=== PATIENT | female | born 1945 | race Caucasian/White ===

== ENCOUNTER → 2020-06-15 14:22 | Outpatient (BNVA) | payer MEDICARE, OTHER, SELFPAY | PROVIDERS: Family Provider Family Medicine; Visit Provider Nurse Practitioner Family | DX: Z11.59 Encounter for screening for other viral diseases (principal); J32.9 Chronic sinusitis, unspecified; R05 Cough | CPT/HCPCS: 87635 ==

== ENCOUNTER 2020-06-16 13:22 | Inpatient (IN) | payer MEDICARE, OTHER, SELFPAY ==
[2020-06-16] VITALS (11 sets, daily range): BP systolic 122–171; BP diastolic 72–101; PULSE 78–88; RESP 16–21; TEMP 35.9–37.2; O2SAT 88–94; BMI 40.9
--- NOTE | 2020-06-16 13:42 | ECG_ITS ---
[facility] Test Date: 2020-06-16 Pat Name: Brook Malin Department: Room: Gender: Female Motor Analyst: : 1945 Requested By: Jose Wei Order Number: [id number] Ariel MD: Isaías Rasheed M.D. Measurements Intervals [place] Rate: 77 P: 16 [place]: 161 QRS: 66 QRSD: 91 T: 52 QT: 391 QTc: 443 Interpretive Statements SINUS RHYTHM No previous ECG available for comparison Electronically Signed On 06-16-2020 22:01:17 MANAGER STUDENT SERVICES by Isaías Rasheed M.D. [id number]
--- NOTE | 2020-06-16 13:42 | XR_ITS ---
WS: [id number] PORTABLE CHEST HISTORY: sob COMPARISON: None available. Mild interstitial thickening throughout the LEFT mid to lower lung field. No dense areas of consolida tion or pneumonia. Normal vasculature. No pleural effusion or pneumothorax. Cardiac size: Normal. Mediastinum/Aorta: Mild atherosclerosis aorta. Mild AC joint arthritis. XR/XR chest 1V portable [id number] IMPRESSION: Mild interstitial thickening in the mid and lower LEFT lung. May be due to pneu monitis.
--- NOTE | 2020-06-16 14:08 | ED_ITS ---
HPI - COVID General: Chief Complaint: COVID symptoms Stated Complaint: sob, weakness Time Seen by Provider: 06/16/20 13:39 Source: patient Mode of arrival: ambulatory Limitations: no limitations Triage information: Has fever, cough or shortness of breath . Exposure to COVID + person last 14 days History of Present Illness: HPI Narrative: 74-year-old female who states she has been feeling ill for the last 3 to 4 days. She states she is tested for Covid 2 days ago but does not have the results. She states she has been in contact with Covid at [facility]. States she had increasing shortness of breath and is requiring 5 L of oxygen here. She is able to talk in full sentences and is in no severe distress. She denies any chest pain. She has had body aches and low-grade fevers. No vomiting no diarrhea. COVID 19 common symptoms: positive chills, dyspnea and body aches; negative headache(s), throat pain, nausea, vomiting or diarrhea COVID 19 other sytmptoms: negative chest pain COVID Results: SARS-CoV-2 Antigen (Rapid) Positive (Negative) H 06/16/20 14:31 06/16/20 SARS-CoV-2 RNA (RT-PCR) Pending 06/15/20 14:22 06/15/20 Review of Systems Const: Reports: chills and body aches Eyes: Denies: blurry vision or eye discomfort ENMT: Denies: throat pain or dental pain Card: Denies: chest pain Resp: Reports: dyspnea GI: Denies: abdominal pain, nausea, vomiting or diarrhea : Denies: dysuria Musc: Denies: neck pain or back pain Skin/Breast: Denies: rash Neuro: Denies: headache(s) Psych: Denies: depression Henri/Lymph: Denies: easy bruising All/Imm: Denies: urticaria PFSH ED PFSH: Medical History (Updated 06/16/20 @ 16:52 by Miko Sapp MD) No pertinent past medical history Surgical History (Updated 06/16/20 @ 16:49 by Miko Sapp MD) Hx of cholecystectomy Family History (Updated 06/16/20 @ 16:51 by Miko Sapp MD) Mother Lung cancer Father CAD (coronary artery disease) Social History (Updated 06/16/20 @ 16:51 by Miko Sapp MD) Smoking and tobacco status: former smoker Alcohol intake: never Substance/Drug Use: never Physical Exam Const: COMMON NORMALS: no acute distress, patient oriented x3 and healthy appearing HENMT: COMMON NORMALS: normocephalic and atraumatic HEAD & SCALP: normocephalic and atraumatic Eye: COMMON NORMALS: Equal, round and reactive pupils present and EOMs intact bilaterally PUPIL: Yes Equal, round and reactive pupils present Neck/C-Spine: COMMON NORMALS: full ROM and supple Chest: COMMONS NORMALS: normal inspection of the chest and normal palpation of entire chest wall Resp: COMMON NORMALS: normal respiratory effort, No retractions, No use of accessory muscles and clear to auscultation bilaterally AUSCULTATION: clear to auscultation bilaterally Cardio: COMMON NORMALS: regular rate, regular rhythm and No murmurs present (Cardio) RATE: regular rate RHYTHM: regular rhythm GI: COMMON NORMALS: Normal to inspection, nondistended, normoactive bowel sounds present, Soft to palpation, non-tender and no masses PALPATION: Yes Soft to palpation Extremity: COMMON NORMALS: normal to inspection and full ROM Neuro: COMMON NORMALS: patient oriented x3, moves all extremities and no focal motor deficits Psych: COMMON NORMALS: mental status grossly normal, Normal thought process present and cooperative THOUGHT PROCESS: Normal thought process present Skin: COMMON NORMALS: no rashes or lesions noted and no wounds GENERAL SKIN EXAM: no rashes or lesions noted Course Vital Signs: Vital signs: Vital Signs Temperature 96.6 F L 06/16/20 13:38 Pulse Rate 83 06/16/20 16:07 Respiratory Rate 21 H 06/16/20 16:07 Blood Pressure 166/78 06/16/20 16:07 Pulse Oximetry 93 06/16/20 16:07 MDM - COVID MDM Narrative: Medical decision making narrative: Brook presents here with Covid pneumonia. She does have shortness of breath is requiring oxygen. I spoke to hospitalist and will admit. Patient been stable here. She has no signs of bacterial pneumonia. Patient given Decadron. I did not give antiviral as she is only requiring 2 L of oxygen. Lab Data: Labs: Lab Results 06/16/20 06/16/20 06/16/20 Range/Units 14:07 14:08 14:08 WBC 7.2 (4.0-10.0) 10^3/ uL RBC 4.50 (4.1-5.3) 10^6/u L Hgb 13.0 (11.5-15.3) g/dL Hct 39.9 (37.0-47.0) % MCV 88.7 (81-99) fL MCH 28.9 (28.0-34.0) pg MCHC 32.6 (30.0-36.0) g/dL RDW 14.3 (12.1-15.1) % Plt Count 184 (130-400) 10^3/c mm MPV 10.7 H (7.4-10.4) fL Neut % (Auto) 88.6 % Lymph % (Auto) 5.4 % Sully % (Auto) 5.3 % Eos % (Auto) 0.0 % Baso % (Auto) 0.1 % Neut # (Auto) 6.40 (1.8-7.7) 10^3/u L Lymph # (Auto) 0.4 L (0.8-4.8) 10^3/u L Sully # (Auto) 0.4 (0.2-0.9) 10^3/u L Eos # (Auto) 0.0 (0.0-0.8) 10^3/u L Baso # (Auto) 0.0 (0.0-0.1) 10^3/u L Nucleated RBC % (a uto) 0 % Nucleated RBCs # 0.0 /100WBC PT 14.40 (12.1-14.9) SECO NDS INR 1.08 (0.8-1.2) Fibrinogen 700 H (174-498) mg/dL Specimen Type Arterial Sample Site Radial, right ABG pH 7.40 (7.35-7.45) ABG pCO2 38.2 (35-45) mmHg ABG pO2 107.0 H (80.0-100.0) mmH g ABG HCO3 23.8 (22-26) mmol/L ABG Base Excess -0.8 (-2.0-2.0) mmol/ L Ramirez Test Pos Hematocrit 40.2 (37-47) % O2 Delivery Device Nc O2 Liters/Min 3.5 % FiO2 32.0 % Directional Drill Operator ID Anonymous Sodium (136-145) mmol/L Potassium (3.5-5.1) mmol/L Chloride (98-107) mmol/L Carbon Dioxide (22-29) mmol/L Anion Gap (5-19) BUN (8-23) mg/dL Creatinine (0.5-0.9) mg/dL GFR Calculation Glucose (65-115) mg/dL Calculated Osmolal ity (285-295) mOsm/k g Lactic Acid (0.5-2.2) mmol/L Calcium (8.5-10.5) mg/dL Total Bilirubin (0.15-1.2) mg/dL AST (0-32) U/L ALT (0-33) U/L Alkaline Phosphata se (35-105) IU/L C-Reactive Protein (0.0-4.9) mg/L NT-Pro-B Natriuret Pep (0-125) pg/mL Total Protein (6.6-8.7) g/dL Albumin (3.5-5.2) g/dL Globulin (1.3-4.6) g/dL Influenza Type A A g (Negative) Influenza Type B A g (Negative) SARS-CoV-2 Ag (Rap id) (Negative) 06/16/20 06/16/20 06/16/20 Range/Units 14:08 14:08 14:31 WBC (4.0-10.0) 10^3/ uL RBC (4.1-5.3) 10^6/u L Hgb (11.5-15.3) g/dL Hct (37.0-47.0) % MCV (81-99) fL MCH (28.0-34.0) pg MCHC (30.0-36.0) g/dL RDW (12.1-15.1) % Plt Count (130-400) 10^3/c mm MPV (7.4-10.4) fL Neut % (Auto) % Lymph % (Auto) % Sully % (Auto) % Eos % (Auto) % Baso % (Auto) % Neut # (Auto) (1.8-7.7) 10^3/u L Lymph # (Auto) (0.8-4.8) 10^3/u L Sully # (Auto) (0.2-0.9) 10^3/u L Eos # (Auto) (0.0-0.8) 10^3/u L Baso # (Auto) (0.0-0.1) 10^3/u L Nucleated RBC % (a uto) % Nucleated RBCs # /100WBC PT (12.1-14.9) SECO NDS INR (0.8-1.2) Fibrinogen (174-498) mg/dL Specimen Type Sample Site ABG pH (7.35-7.45) ABG pCO2 (35-45) mmHg ABG pO2 (80.0-100.0) mmH g ABG HCO3 (22-26) mmol/L ABG Base Excess (-2.0-2.0) mmol/ L Ramirez Test Hematocrit (37-47) % O2 Delivery Device O2 Liters/Min % FiO2 % Directional Drill Operator ID Sodium 136 (136-145) mmol/L Potassium 3.5 (3.5-5.1) mmol/L Chloride 100 (98-107) mmol/L Carbon Dioxide 24 (22-29) mmol/L Anion Gap 15.5 (5-19) BUN 14 (8-23) mg/dL Creatinine 0.5 (0.5-0.9) mg/dL GFR Calculation Not Reportable Glucose 124 H (65-115) mg/dL Calculated Osmolal ity 284 L (285-295) mOsm/k g Lactic Acid 1.2 (0.5-2.2) mmol/L Calcium 8.7 (8.5-10.5) mg/dL Total Bilirubin 0.4 (0.15-1.2) mg/dL AST 34 H (0-32) U/L ALT 19 (0-33) U/L Alkaline Phosphata se 89 (35-105) IU/L C-Reactive Protein 137.5 H (0.0-4.9) mg/L NT-Pro-B Natriuret Pep 511 H (0-125) pg/mL Total Protein 7.0 (6.6-8.7) g/dL Albumin 3.8 (3.5-5.2) g/dL Globulin 3.2 (1.3-4.6) g/dL Influenza Type A A g Negative (Negative) Influenza Type B A g Negative (Negative) SARS-CoV-2 Ag (Rap id) (Negative) 06/16/20 Range/Units 14:31 WBC (4.0-10.0) 10^3/ uL RBC (4.1-5.3) 10^6/u L Hgb (11.5-15.3) g/dL Hct (37.0-47.0) % MCV (81-99) fL MCH (28.0-34.0) pg MCHC (30.0-36.0) g/dL RDW (12.1-15.1) % Plt Count (130-400) 10^3/c mm MPV (7.4-10.4) fL Neut % (Auto) % Lymph % (Auto) % Sully % (Auto) % Eos % (Auto) % Baso % (Auto) % Neut # (Auto) (1.8-7.7) 10^3/u L Lymph # (Auto) (0.8-4.8) 10^3/u L Sully # (Auto) (0.2-0.9) 10^3/u L Eos # (Auto) (0.0-0.8) 10^3/u L Baso # (Auto) (0.0-0.1) 10^3/u L Nucleated RBC % (a uto) % Nucleated RBCs # /100WBC PT (12.1-14.9) SECO NDS INR (0.8-1.2) Fibrinogen (174-498) mg/dL Specimen Type Sample Site ABG pH (7.35-7.45) ABG pCO2 (35-45) mmHg ABG pO2 (80.0-100.0) mmH g ABG HCO3 (22-26) mmol/L ABG Base Excess (-2.0-2.0) mmol/ L Ramirez Test Hematocrit (37-47) % O2 Delivery Device O2 Liters/Min % FiO2 % Directional Drill Operator ID Sodium (136-145) mmol/L Potassium (3.5-5.1) mmol/L Chloride (98-107) mmol/L Carbon Dioxide (22-29) mmol/L Anion Gap (5-19) BUN (8-23) mg/dL Creatinine (0.5-0.9) mg/dL GFR Calculation Glucose (65-115) mg/dL Calculated Osmolal ity (285-295) mOsm/k g Lactic Acid (0.5-2.2) mmol/L Calcium (8.5-10.5) mg/dL Total Bilirubin (0.15-1.2) mg/dL AST (0-32) U/L ALT (0-33) U/L Alkaline Phosphata se (35-105) IU/L C-Reactive Protein (0.0-4.9) mg/L NT-Pro-B Natriuret Pep (0-125) pg/mL Total Protein (6.6-8.7) g/dL Albumin (3.5-5.2) g/dL Globulin (1.3-4.6) g/dL Influenza Type A A g (Negative) Influenza Type B A g (Negative) SARS-CoV-2 Ag (Rap id) Positive H (Negative) Imaging Data: CXR: Attestation: I personally reviewed and interpreted this imaging study as follows: Radiologist's impression: [address] [address] XRay Report Signed Patient: Brook Malin Unit #: [id number] : 1945 Age/Sex: 74 / F ADM Date: 06/16/20 Loc: ER Room/Bed: Attending Dr: Ordering Provider/Ordering MD: Jose Wei MD Date of Service: 06/16/20 Procedure(s): XR chest 1V portable [id number] Accession Number(s): [id number] Report Number: [id number] WS: [id number] PORTABLE CHEST HISTORY: sob COMPARISON: None available. Mild interstitial thickening throughout the LEFT mid to lower lung field. No dense areas of consolidation or pneumonia. Normal vasculature. No pleural effusion or pneumothorax. Cardiac size: Normal. Mediastinum/Aorta: Mild atherosclerosis aorta. Mild AC joint arthritis. XR/XR chest 1V portable [id number] IMPRESSION: Mild interstitial thickening in the mid and lower LEFT lung. May be due to pneumonitis. EKG Data: EKG 1: Attestation: I personally reviewed and interpreted this EKG as follows: EKG interpretation date: 06/16/20 EKG interpretation time: 14:15 Interpretation: nsr hr [address] or t wave abnormalities qrs 91 qtc 422 COVID Results: SARS-CoV-2 Antigen (Rapid) Positive (Negative) H 06/16/20 14:31 06/16/20 SARS-CoV-2 RNA (RT-PCR) Pending 06/15/20 14:22 06/15/20 Discharge Plan Discharge Patient Disposition: Admitted As Inpatient Admit Provider: Miko Sapp Clinical Impression: Pneumonia due to 2019-nCoV Condition: Stable Discharge Diet: Advance as tolerated Discharge Activity: Resume usual activity Coding Level of Care Code ED Chromium Plater for Chg Fwd Exam Comprehensive
[2020-06-16 14:16] LABS: ABG PCO2 38.2 mmHg (35-45); Arterial Blood Gas Hematocrit 40.2 % (37-47); Base Excess ABG -0.8 mmol/L (-2.0-2.0); Blood Gas Allen Test Pos; Blood Gas Operator Identificat Anonymous; Blood Gas Sample Type Arterial; HCO3 ABG 23.8 mmol/L (22-26)
[2020-06-16 14:23] LABS: Blood Gas LPM 3.5 %; Blood Gas Sample Site Radial, right; Oxygen Device NC
[2020-06-16 14:26] LABS: Basophils % 0.1 %; Hematocrit 39.9 % (37.0-47.0); Lymphocytes # 0.4 10^3/uL (0.8-4.8); Lymphocytes % 5.4 %; Mean Corpuscular HGB Conc 32.6 g/dL (30.0-36.0); Mean Corpuscular Hemoglobin 28.9 pg (28.0-34.0); Mean Corpuscular Volume 88.7 fL (81-99); Mean Platelet Volume 10.7 fL (7.4-10.4); Monocytes # 0.4 10^3/uL (0.2-0.9); Monocytes % 5.3 %; Neutrophils % 88.6 %; Nucleated Red Blood Cells % 0 %; Platelet Count 184 10^3/cmm (130-400); Red Cell Distribution Width 14.3 % (12.1-15.1); White Blood Count 7.2 10^3/uL (4.0-10.0)
[2020-06-16 14:44] LABS: Lactic Sepsis W/Reflex 1.2 mmol/L (0.5-2.2)
[2020-06-16 14:54] LABS: Fibrinogen 700 mg/dL (174-498); INR 1.08 (0.8-1.2)
[2020-06-16 14:59] LABS: SARS Covid-2 Antigen Positive (Negative)
[2020-06-16 15:00] LABS: Influenza A by IFA Negative (Negative); Influenza B by IFA Negative (Negative)
--- NOTE | 2020-06-16 15:14 | PC.NURSE ---
pts daughter Vanesa called asking about pt. pts daughter was informed of the tests that we were waiting on and she said that she would call back in a little bit.
[2020-06-16 15:15] LABS: Alanine Aminotransferase 19 U/L (0-33); Albumin Level 3.8 g/dL (3.5-5.2); Alkaline Phosphatase 89 IU/L (35-105); Anion Gap 15.5 (5-19); Aspartate Amino Transferase 34 U/L (0-32); Blood Urea Nitrogen 14 mg/dL (8-23); C Reactive Protein 137.5 mg/L (0.0-4.9); Calcium 8.7 mg/dL (8.5-10.5); Carbon Dioxide 24 mmol/L (22-29); Chloride 100 mmol/L (98-107); Globulin 3.2 g/dL (1.3-4.6); Glucose 124 mg/dL (65-115); NT Pro B Type Natriuretic Pept 511 pg/mL (0-125); Osmolality Calculated 284 mOsm/kg (285-295); Potassium 3.5 mmol/L (3.5-5.1); Sodium 136 mmol/L (136-145); Total Bilirubin 0.4 mg/dL (0.15-1.2)
[2020-06-16] MEDS: dexamethasone 4 mg/mL INJ 10 MG IVP (15:50)
--- NOTE | 2020-06-16 16:46 | PM.HP ---
Providers/Chief Complaint Chief Complaint: sob, weakness History of Present Illness Brook Malin is a 74 year old female with a past medical history of smoking for over 40 years, currently has quit for over 10 years, no other medical history, who presents [facility] due to cough, fevers, shortness of breath, fatigue, malaise. Patient tells me that for the last few days, she has had increased shortness of breath with minimal exertion, progressing to shortness of breath at rest, she has had low-grade fevers, she has not really measured her temperatures, nonproductive cough, fatigue, malaise, chills. No nausea, no vomiting, no headache, no blurry vision. Denies any chest pain. Denies a history of COPD, but has smoked more than 40 years. Denies a cardiovascular history. Denies history of strokes. Denies a history of diabetes or hypertension. Review of Systems Const: Reports: fever(s), chills, body aches, fatigue and malaise Eyes: Denies: change in vision or blurry vision ENMT: Denies: nasal congestion Card: Denies: chest pain or palpitations Resp: Reports: dyspnea and non-productive cough; Denies: productive cough or wheezing GI: Denies: abdominal pain, nausea, vomiting, hematemesis, diarrhea, constipation, hematochezia or melena : Denies: flank pain, dysuria or urinary frequency Musc: Denies: neck pain or back pain Skin/Breast: Denies: rash Neuro: Denies: headache(s), dizziness or vertigo Psych: Denies: anxiety or depression Endo: Denies: polyuria or polydipsia Medications/Allergies Home Medications Medication Instructions Recorded Confirmed Last Taken Type azithromycin 250 mg tablet See Rx Instructions PO .COMPLEX #6 06/15/20 06/16/20 06/16/20 Rx tab cephalexin [Keflex] 500 mg PO Q6H 7 Days #28 cap 06/16/20 Unknown Rx [id number]-iron [id number] 1 tab PO DAILY 06/16/20 06/16/20 06/15/20 History [Multi For Her] Allergies Allergy/AdvReac Type Severity Reaction Status Date / Time No Known Allergies Allergy Verified 06/16/20 13:43 PFSH Acute PFSH: Medical History (Updated 11/19/20 @ 16:52 by Miko Sapp MD) No pertinent past medical history Surgical History (Updated 06/16/20 @ 16:49 by Miko Sapp MD) Hx of cholecystectomy Family History (Updated 06/16/20 @ 16:51 by Miko Sapp MD) Mother Lung cancer Father CAD (coronary artery disease) Social History (Updated 06/16/20 @ 16:51 by Miko Sapp MD) Smoking and tobacco status: former smoker Alcohol intake: never Substance/Drug Use: never Vitals/I&O/Wt Last Vital Signs Temp 96.6 F L 06/16/20 13:38 Pulse 83 06/16/20 16:07 Resp 21 H 06/16/20 16:07 BP 166/78 06/16/20 16:07 Pulse Ox 93 06/16/20 16:07 Weight last 48 hrs Weight 113.398 kg Physical Exam Const: COMMON NORMALS: no acute distress and patient oriented x3 GENERAL APPEARANCE: cooperative and comfortable HENMT: COMMON NORMALS: normocephalic HEAD & SCALP: normocephalic Eye: COMMON NORMALS: Equal, round and reactive pupils present and EOMs intact bilaterally GENERAL EYE: appearance normal, both eyes and all related structures PUPIL: Yes Equal, round and reactive pupils present Neck/C-Spine: COMMON NORMALS: full ROM, no lymphadenopathy, no JVD and Thyroid normal THYROID: Thyroid normal Lymph: LYMPHATIC: no lymphadenopathy noted Resp: COMMON NORMALS: normal respiratory effort, No retractions, No use of accessory muscles and clear to auscultation bilaterally AUSCULTATION: diminished lung sounds Cardio: COMMON NORMALS: no JVD, regular rate, regular rhythm, S1 normal heart sound present, S2 normal heart sound present, No gallops present (Cardio), No clicks present (Cardio) and No murmurs present (Cardio) RATE: regular rate RHYTHM: regular rhythm HEART SOUNDS: S1 normal heart sound present and S2 normal heart sound present GI: COMMON NORMALS: Normal to inspection, nondistended, normoactive bowel sounds present, Soft to palpation, non-tender and No hepatosplenomegaly present PALPATION: Yes Soft to palpation and Yes No hepatosplenomegaly present Extremity: COMMON NORMALS: normal to inspection, full ROM and no pedal edema Neuro: COMMON NORMALS: patient oriented x3, CN's II-XII intact bilaterally, moves all extremities and no focal motor deficits Psych: COMMON NORMALS: mental status grossly normal, Normal thought process present and cooperative THOUGHT PROCESS: Normal thought process present Data : 06/16/20 14:08 06/16/20 14:08 A&P Assessment and plan (1) Acute respiratory failure with hypoxia: -secondary to covid 19, pneumonitis -secondary bacterial pneumonia PLAN: -admit to general medical floors -advair, albuterol -vitamin c, zinc -azithromycin, rocephin -decadron -remdesvir -lovenox, dvt ppx -protonix gi prophylaxis -full code -will do ct angio, cardiac echo Status: Acute (2) Secondary bacterial pneumonia: Status: Acute (3) Pneumonia due to COVID-19 virus: Status: Acute Attestations Medical Necessity Statement*: patient requires hospitalization, greater than 2 midnights, for covid 19, secondary bacterial pneumoniae Coding Level of Care Code 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
[2020-06-16 18:07] LABS: D Dimer 1.66 ug/mIFEU (0-0.59)
--- NOTE | 2020-06-16 18:46 | CTR_ITS ---
PROCEDURE INFORMATION: Exam: CT Angiography Chest With Contrast Exam date and time: 06/16/2020 8:29 PM Age: 74 years old Clinical indication: Shortness of breath; Prior surgery; Surgery type: Gb; Additional info: SOB, covid 19 TECHNIQUE: Imaging protocol: Computed tomographic angiography of the chest with intravenous contrast. 3D rendering (Not supervised by radiologist): MIP and/or 3D reconstructed images were created by the technologist. Radiation optimization: All CT scans at this facility use at least one of these dose optimization techniques: automated exposure control; mA and/or kV adjustment per patient size (includes targeted exams where dose is matched to clinical indication); or iterative reconstruction. Contrast material: OMNI 350; Contrast volume: 67 ml; Contrast route: INTRAVENOUS (IV); COMPARISON: CR XR chest 1V portable [id number] 06/16/2020 2:26 PM RADIATION DOSE METRICS: Total DLP (mGy-cm): 571.44 FINDINGS: Pulmonary arteries: Normal. No pulmonary emboli. Aorta: Unremarkable. No aortic aneurysm. No aortic dissection. Lungs: Multilobar peripheral ground-glass opacities in both lungs. Mild dependent atelectasis. Pleural space: Unremarkable. No pneumothorax. No pleural effusion. Heart: Unremarkable. No cardiomegaly. No pericardial effusion. Mediastinal space: Small hiatal hernia. Lymph nodes: Subcentimeter mediastinal and hilar lymph nodes are most likely reactive. Calcified right hilar lymph nodes. Gallbladder and bile ducts: Cholecystectomy. Bones/joints: Unremarkable. No acute fracture. Soft tissues: Unremarkable. CT/CT angio chest PE protcl [id number] IMPRESSION: 1. No evidence for pulmonary embolus. 2. Multilobar peripheral ground-glass opacities, typical of COVID-19 pneumonia. This pattern can also be seen with influenza pneumonia and organizing pneumonia. Radiation Dose CTDIVOL = (mGy): DLP = 571.44 (mGy-cm)
--- NOTE | 2020-06-16 19:28 | PC.NURSE ---
Report to Alanna ORTIZ at this time.
[2020-06-16] MEDS: iohexol 350 mg/mL 100 mL Btl IV (21:09)
[2020-06-16 21:27] LABS: Troponin(5th) Baseline 9 ng/L (0-10)
[2020-06-16] MEDS: ascorbic acid 500 mg Tablet 1000 MG PO (22:39)
[2020-06-16] MEDS: cefTRIAXone 1,000 MG in sodium chloride 0.9% (plus) 50 ML 100 MG IV (22:41)
[2020-06-16] MEDS: enoxaparin 40 mg/0.4 mL Syringe SUBCUT (22:42)
--- NOTE | 2020-06-16 22:46 | ECG_ITS ---
[facility] Test Date: 2020-06-16 Pat Name: Brook Malin Department: Room: 273 Gender: Female Public Works Director: : 1945 Requested By: Miko Sapp Order Number: [id number] Ariel MD: Larissa Colón M.D. Measurements Intervals [place] Rate: 85 P: 27 IA: 126 QRS: -7 QRSD: 97 T: -3 QT: 385 QTc: 460 Interpretive Statements SINUS RHYTHM POSSIBLE LEFT ATRIAL ENLARGEMENT [-0.1mV P WAVE IN V1/V2] Compared to ECG 06/16/2020 14:15:50 No significant changes Electronically Signed On 06-17-2020 10:28:03 GIS MANAGER by Larissa Colón M.D. [id number]
[2020-06-16] MEDS: azithromycin 500 MG in sodium chloride 0.9% 250 ML 250 MG IV (23:33)
[2020-06-16 23:40] LABS: Troponin 5 2HR 10.49 ng/L (0-10); Troponin 5 2HR Delta 1.49 ABS# (0-10)
[2020-06-17] VITALS (11 sets, daily range): BP systolic 125–165; BP diastolic 72–82; PULSE 81–134; RESP 18–26; TEMP 36.8–37.6; O2SAT 90–97
[2020-06-17 04:03] LABS: Troponin 5 6HR 10.97 ng/L (0-10); Troponin 5 6HR Delta 1.97 ng/L (0-12)
[2020-06-17 05:12] LABS: Basophils % 0.2 %; Hematocrit 41.1 % (37.0-47.0); Hemoglobin 13.4 g/dL (11.5-15.3); Lymphocytes # 0.5 10^3/uL (0.8-4.8); Lymphocytes % 3.7 %; Mean Corpuscular HGB Conc 32.6 g/dL (30.0-36.0); Monocytes # 0.7 10^3/uL (0.2-0.9); Neutrophils # 10.88 10^3/uL (1.8-7.7); Neutrophils % 89.4 %; Nucleated Red Blood Cells % 0 %; Platelet Count 217 10^3/cmm (130-400); Red Blood Count 4.62 10^6/uL (4.1-5.3); Red Cell Distribution Width 14.3 % (12.1-15.1); White Blood Count 12.2 10^3/uL (4.0-10.0)
[2020-06-17 05:30] LABS: INR 1.01 (0.8-1.2)
[2020-06-17 05:32] LABS: D Dimer 1.52 ug/mIFEU (0-0.59)
[2020-06-17 05:44] LABS: NT Pro B Type Natriuretic Pept 520 pg/mL (0-125); Procalcitonin 0.44 ng/mL (0-0.5)
[2020-06-17 05:48] LABS: Alanine Aminotransferase 23 U/L (0-33); Albumin Level 3.6 g/dL (3.5-5.2); Alkaline Phosphatase 94 IU/L (35-105); Blood Urea Nitrogen 14 mg/dL (8-23); C Reactive Protein 122.4 mg/L (0.0-4.9); Carbon Dioxide 23 mmol/L (22-29); Chloride 100 mmol/L (98-107); Globulin 3.5 g/dL (1.3-4.6); Glucose 126 mg/dL (65-115); Magnesium 2.4 mg/dL (1.7-2.3); Osmolality Calculated 284 mOsm/kg (285-295); Phosphorus 3.6 mg/dL (2.5-4.5); Sodium 136 mmol/L (136-145); Total Bilirubin 0.3 mg/dL (0.15-1.2); Total Protein 7.1 g/dL (6.6-8.7)
[2020-06-17 06:01] LABS: Creatine Phosphokinase 149 U/L (26-192)
[2020-06-17 06:13] LABS: Anion Gap 17.3 (5-19); Aspartate Amino Transferase 39 U/L (0-32); Potassium 4.3 mmol/L (3.5-5.1)
[2020-06-17] MEDS: zinc gluconate 50 mg Tablet PO (08:30)
[2020-06-17] MEDS: ascorbic acid 500 mg Tablet 1000 MG PO ×2 (08:30→17:15)
[2020-06-17] MEDS: pantoprazole DR 40 mg Tablet PO (08:30)
--- NOTE | 2020-06-17 13:53 | P.PN_ITS ---
Subjective Subjective: Interval history: Patient was examined this morning, she denies any fevers, chills, still having some shortness of breath with exertion, is up to 7 L, is a bit anxious Vitals/I&O/Wt Last Vital Signs Temp 99.6 F 06/17/20 12:00 Pulse 104 H 06/17/20 12:00 Resp 18 06/17/20 12:00 BP 155/82 06/17/20 12:00 Pulse Ox 97 06/17/20 12:00 06/16/20 06/17/20 06/17/20 22:59 06:59 14:59 Intake Total 100 / 100 480 / 580 480 / 480 Output Total 500 / 500 Balance 100 / 100 -20 / 80 480 / 480 Weight last 48 hrs Weight 113.398 kg Data : 06/17/20 04:50 06/17/20 04:50 Micro: Microbiology 06/16/20 14:08 Blood Culture - Preliminary Blood SPECIMEN COLLECTED 06/16/20 20:50 Blood Culture - Preliminary Blood SPECIMEN COLLECTED A&P Assessment and plan (1) Acute respiratory failure with hypoxia: -secondary to covid 19, pneumonitis -secondary bacterial pneumonia -ABG this morning, pH 7.4, PCO2 30.2, PO2 107 on 35% -Currently on high flow nasal cannula 7 L, looking a bit anxious, lungs clear to auscultation PLAN: -admit to general medical floors, will consider moving her to the viral ICU if her oxygen requirements increase -advair, albuterol -vitamin c, zinc -azithromycin, rocephin -decadron -remdesvir -lovenox, dvt ppx -protonix gi prophylaxis -full code -will do ct angio, cardiac echo Plan for today, continue to monitor respiratory status closely, if oxygen requirements increased, feels more short of breath will move to viral ICU, will give a touch of Lasix today Status: Acute (2) Secondary bacterial pneumonia: Status: Acute (3) Pneumonia due to COVID-19 virus: Status: Acute Attestations Medical Necessity Statement*: Requires hospitalization for acute respiratory failure secondary COVID-19, secondary bacterial infection Coding Level of Care Code 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
[2020-06-17] MEDS: albuterol 8 gm MDI 2 PUFF INHALATION ×2 (14:19→19:40)
--- NOTE | 2020-06-17 14:30 | PC.NURSE ---
Patient's daughter- Vanesa home phone number is [phone].
[2020-06-17] MEDS: FUROsemide 10 mg/mL SDV 4mL 40 MG IVP (14:35)
[2020-06-17] MEDS: LORazepam 0.5 mg Tablet PO (14:43)
[2020-06-17] MEDS: dexamethasone 4 mg/mL INJ 6 MG IVP (16:03)
--- NOTE | 2020-06-17 18:46 | USCV_ITS ---
Brook Malin Age: 74 Gender: F : 1945 Exam Date: 06/17/2020 05:51 Ordering Phys: Miko Sapp MD Technologist: Wendy Astorga [place] [facility] [place] COVID + AND SOB BP: 144 / 76 HR: 91 Rhythm: Sinus Technical Quality: Adequate MEASUREMENTS (Male / Female) Normal Values 2D ECHO LV Diastolic Diameter PLAX 5.1 cm 4.2 - 5.9 / 3.9 - 5.3 cm LV Systolic Diameter PLAX 2.6 cm LV Chamber Size 2.8 cm IVS Diastolic Thickness 1.2 cm 0.6 - 1.0 / 0.6 - 0.9 cm IVS Systolic Thickness 1.8 cm LVPW Diastolic Thickness 1.1 cm 0.6 - 1.0 / 0.6 - 0.9 cm LVPW Systolic Thickness 1.8 cm RV Chamber Size 2.7 cm LVOT Diameter 2.0 cm LV Ejection Fraction 2D Teich 72.6 % LV Ejection Fraction MOD 2C 56.5 % LV Ejection Fraction 2C AL 60.0 % LA Diameter 3.7 cm LA Width 3.1 cm LA Height 3.9 cm RA Width 3.3 cm RA Height 3.5 cm Aorta at Sinotubular Diameter 3.4 cm M-MODE LV Diastolic Diameter MM 4.5 cm 4.2 - 5.9 / 3.9 - 5.3 cm LV Systolic Diameter MM 2.9 cm LV Ejection Fraction MM Teich 64.7 % IVS Diastolic Thickness MM 0.9 cm 0.6 - 1.0 / 0.6 - 0.9 cm IVS Systolic Thickness MM 1.8 cm LVPW Diastolic Thickness MM 1.5 cm 0.6 - 1.0 / 0.6 - 0.9 cm LVPW Systolic Thickness MM 1.8 cm RV Diastolic Diameter MM 1.3 cm Aortic Annulus Diameter 3.7 cm LA Ao Ratio MM 1.0 MV E Point Septal Separation 0.7 cm DOPPLER AV Peak Velocity 174.0 cm/s LVOT Peak Velocity 119.0 cm/s AV Area Cont Eq vti 2.6 cm squared AV Area Cont Eq pk 2.2 cm squared MV Area PHT 4.5 cm squared Mitral E to A Ratio 0.8 MV E' Velocity 47.8 cm/s Mitral E to MV E' Ratio 9.3 Mitral E to LV E' Lateral Ratio 8.0 Mitral E to LV E' Septal Ratio 11.4 TR Peak Velocity 250.5 cm/s TR Peak Gradient 25.1 mmHg TR Mean Velocity 176.9 cm/s TR Mean Gradient 15.8 mmHg TR Velocity Time Integral 58.0 cm TV Peak E Velocity 97.0 cm/s Right Atrial Pressure 8.0 mmHg Pulmonary Artery Systolic Pressu 33.1 mmHg PV Peak Velocity 86.0 cm/s RV Acceleration Time 0.2 s RV Ejection Time 0.4 s RV AcT/ET 0.5 FINDINGS Left Ventricle Normal left ventricular size and wall thickness. Grossly LV systolic function is normal. Regional wall motion abnormalities can not be assessed because of poor visualization. Normal left ventricular wall thickness. Grade 1 diastolic dysfunction is noted Right Ventricle The right ventricle is normal in size and function. Right Atrium The right atrium is normal in size. Left Atrium The left atrium is normal in size. Mitral Valve Structurally normal mitral valve without significant stenosis or prolapse. There is no mitral regurgitation. Aortic Valve Structurally normal aortic valve without significant sclerosis or stenosis. There is no aortic regurgitation. Tricuspid Valve Structurally normal tricuspid valve without significant stenosis or regurgitation. Insufficient TR jet to calculate RVSP. Pulmonic Valve Structurally normal pulmonic valve without significant stenosis. There is no pulmonic regurgitation. Pericardium Normal pericardium without effusion. Aorta Normal ascending aorta dimension. CONCLUSIONS LV systolic function is grossly normal. Regional wall motion abnormalities can not be assessed because of poor visualization Grade 1 diastolic dysfunction No comparison studies are available Wayne Field MD (Electronically Signed) Final Date: 17 June 2020 14:34 S
[2020-06-17] MEDS: enoxaparin 40 mg/0.4 mL Syringe SUBCUT (20:04)
--- NOTE | 2020-06-17 20:52 | PC.RESP ---
PT was found to be 83% on 5 lpm high flow nasal cannula. Pt is not complaining of any more increased shortness of breath. Pt was turned to the prone position and O2 was increased in increments of 2 lpm until pt had a current O2 sat of 94% on 10 lpm nasal cannula. Pt is resting comfortably in the prone position. Will continue to monitor.
[2020-06-17] MEDS: cefTRIAXone 1,000 MG in sodium chloride 0.9% (plus) 50 ML 100 MG IV (21:58)
[2020-06-17] MEDS: azithromycin 500 MG in sodium chloride 0.9% 250 ML 250 MG IV (23:07)
[2020-06-18] VITALS (56 sets, daily range): BP systolic 85–133; BP diastolic 49–96; PULSE 74–168; RESP 12–38; TEMP 36.6–37.2; O2SAT 86–96
--- NOTE | 2020-06-18 01:28 | ECG_ITS ---
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 Measurements Intervals [place] Rate: 162 P: CA: QRS: -1 QRSD: 90 T: -1 QT: 277 QTc: 456 Interpretive Statements ATRIAL FIBRILLATION WITH RAPID VENTRICULAR RESPONSE NONSPECIFIC ST & T-WAVE ABNORMALITY Compared to ECG 06/16/2020 23:14:02 T-wave abnormality now present Sinus rhythm no longer present Electronically Signed On 06-19-2020 19:20:28 PIPELINE TECHNICIAN by Wayne Field M.D. [id number] f
--- NOTE | 2020-06-18 01:35 | PC.NURSE ---
shift summary upon 2100 rounding this nurse found the patient to be short of breath during assessment, Nurse took patient vital signs and patient O2 was 83% on 5L nasal cannula. Nurse notified doctor Ilir and RT Brinda. RT assessed PT and Nurse and RT assisted patient into prone position and patient was increased to 10L and was able to maintain O2 saturation of 93%. Patient's daughter Vanesa called and spoke with this nurse, Nurse updated daughter of increasing oxygen requirements and current Vital signs. Patient began to be tachycardic with a HR reaching the 130s around 2230, Doctor ilir notified. At midnight rounds GUIDE DOG MOBILITY INSTRUCTOR notified nurse the patient had accidentally pulled out IV catheter when turning in bed. Nurse stopped IV infusion and inspected IV site. IV catheter was removed intact, New 20g IV placed in the left upper arm. Pt was SOB while speaking to nurse during IV insertion, vital signs obtained O2 was 86% on 10L, patient increased to 12L and returned to the prone position. HR was 140 and reaching in the 160s at times, Doctor Ilir notified. Orders to transfer patient to ICU received. Patient requested her family be notified. This nurse called report to MARANDA Pierre. This Nurse and RT transported patient and all personal belongings to ICU bed 2. This nurse attempted to reach kristen Alexis but got no answer. This nurse left message to kristen Alexis that her mother had been transferred to ICU and if she had any questions to please call back. end note.
--- NOTE | 2020-06-18 01:39 | PC.NURSE ---
TRANSFER Pt report taken from med surg nurse DIANA Mondragon. Pt rcd. Hooked up to ICU monitoring. PT tachy, EKG done by RT. EKG showed afib w/RVR. RT put pt on bipap. Current HR 158, 93%, RR 34, BP 110/62, temp 98. Dr. Hazel called, but was unable to discuss HR/new onset afib.
[2020-06-18] MEDS: enoxaparin 120 mg/0.8 mL Syringe 110 MG SUBCUT ×2 (01:53→13:05)
[2020-06-18] MEDS: dilTIAZem 30 mg Tablet PO ×2 (02:24→07:44)
[2020-06-18] MEDS: amiodarone 50 mg/mL SDV 3 mL 150 MG IVP (04:07)
[2020-06-18 04:40] LABS: Basophils % 0.2 %; Hematocrit 36.8 % (37.0-47.0); Hemoglobin 12.2 g/dL (11.5-15.3); Lymphocytes # 0.6 10^3/uL (0.8-4.8); Lymphocytes % 5.7 %; Mean Corpuscular HGB Conc 33.2 g/dL (30.0-36.0); Mean Corpuscular Hemoglobin 28.8 pg (28.0-34.0); Mean Platelet Volume 12.7 fL (7.4-10.4); Monocytes # 0.7 10^3/uL (0.2-0.9); Monocytes % 6.3 %; Neutrophils # 9.17 10^3/uL (1.8-7.7); Neutrophils % 87.3 %; Nucleated Red Blood Cells % 0 %; Platelet Count 224 10^3/cmm (130-400); Red Blood Count 4.23 10^6/uL (4.1-5.3); Red Cell Distribution Width 14.4 % (12.1-15.1); White Blood Count 10.5 10^3/uL (4.0-10.0)
--- NOTE | 2020-06-18 07:00 | XRR_ITS ---
PROCEDURE INFORMATION: Exam: XR Chest, 1 View Exam date and time: 06/18/2020 12:00 AM Age: 74 years old Clinical indication: Shortness of breath; Patient HX: Covid; Additional info: SOB TECHNIQUE: Imaging protocol: XR of the chest Views: 1 view. COMPARISON: CR XR chest 1V portable [id number] 06/16/2020 2:26 PM FINDINGS: Lungs: Bilateral interstitial pulmonary infiltrates are present in the AV come more prominent than on previous study. This is consistent with worsening interstitial pneumonia probably viral in nature. Pleural space: Unremarkable. No pleural effusion. No pneumothorax. Heart/Mediastinum: Unremarkable. No cardiomegaly. Bones/joints: Unremarkable. XR/XR chest 1V portable [id number] IMPRESSION: Worsening bilateral interstitial pneumonia.
[2020-06-18] MEDS: ascorbic acid 500 mg Tablet 1000 MG PO ×2 (07:43→15:49)
[2020-06-18] MEDS: pantoprazole DR 40 mg Tablet PO (07:44)
[2020-06-18] MEDS: LORazepam 0.5 mg Tablet PO ×2 (07:44→15:49)
[2020-06-18] MEDS: zinc gluconate 50 mg Tablet PO (07:44)
[2020-06-18] MEDS: FUROsemide 10 mg/mL SDV 4mL 40 MG IVP (08:10)
[2020-06-18 08:31] LABS: ABG PCO2 39.8 mmHg (35-45); ABG PH Result 7.42 (7.35-7.45); Arterial Blood Gas Hematocrit 40.5 % (37-47); Base Excess ABG 1.1 mmol/L (-2.0-2.0); Blood Gas Operator Identificat AMH; Blood Gas Sample Site Brachial, right; Blood Gas Sample Type Arterial; HCO3 ABG 25.6 mmol/L (22-26); Oxygen Device BIPAP
[2020-06-18 10:09] LABS: INR 1.19 (0.8-1.2)
[2020-06-18 10:12] LABS: Alanine Aminotransferase 23 U/L (0-33); Albumin Level 3.2 g/dL (3.5-5.2); Alkaline Phosphatase 84 IU/L (35-105); Anion Gap 16.3 (5-19); Aspartate Amino Transferase 40 U/L (0-32); Blood Urea Nitrogen 25 mg/dL (8-23); C Reactive Protein 115.4 mg/L (0.0-4.9); Calcium 8.4 mg/dL (8.5-10.5); Carbon Dioxide 24 mmol/L (22-29); Chloride 99 mmol/L (98-107); Globulin 3.1 g/dL (1.3-4.6); Glucose 124 mg/dL (65-115); Magnesium 2.3 mg/dL (1.7-2.3); Osmolality Calculated 288 mOsm/kg (285-295); Phosphorus 4.2 mg/dL (2.5-4.5); Potassium 3.3 mmol/L (3.5-5.1); Sodium 136 mmol/L (136-145); Total Bilirubin 0.3 mg/dL (0.15-1.2); Total Protein 6.3 g/dL (6.6-8.7)
[2020-06-18 10:22] LABS: NT Pro B Type Natriuretic Pept 878 pg/mL (0-125); Procalcitonin 0.31 ng/mL (0-0.5)
[2020-06-18] MEDS: metoprolol tartrate 1 mg/1 mL SDV 5 mL 5 MG IV ×2 (10:25→16:33)
[2020-06-18 10:32] LABS: Creatine Phosphokinase 140 U/L (26-192); D Dimer 1.75 ug/mIFEU (0-0.59)
[2020-06-18] MEDS: piperacillin-tazobactam 3.375 GM in sodium chloride 0.9% (plus) 50 ML IV ×2 (11:14→17:26)
[2020-06-18] MEDS: dilTIAZem 60 mg Tablet PO ×2 (13:06→17:26)
--- NOTE | 2020-06-18 13:14 | PC.NURSE ---
REPORT CALLED TO TYSON IN VICU. WILL NOTIFY FAMILY. PT AWARE & OK WITH TRANSFER TO [facility].
[2020-06-18] MEDS: potassium chloride ER 10 mEq Tablet 40 MEQ PO (13:30)
--- NOTE | 2020-06-18 13:49 | PC.NURSE ---
Addendum entered by Maria Del Carmen Greco RN 06/18/20 13:55: UPDATED DAUGHTER REGARDING TRANSFER TO [facility]. Original Note: JOSSIE FITZGERALD (DAUGHTER) [phone] CALL THIS NUMBER FIRST, CELL SECONDARY DOESN'T HAVE SERVICE AT HER HOUSE.
--- NOTE | 2020-06-18 14:38 | P.PN_ITS ---
Subjective Subjective: Interval history: Overnight patient had episodes of hypoxia, requiring up to 10 L, she went into A. fib with RVR, heart rates in the high 160s,, she was moved out of the lateral ICU, placed on amiodarone drip, on BiPAP Patient was examined this morning on BiPAP, she tells me that she does not really feel short of breath, no chest pain, no palpitations, no lightheadedness, dizziness, no nausea, no vomiting, Patient received metoprolol IV push, heart rates are better controlled, in the 90s-120s, I spoke to Dr. Oneal cardiology, advised to switch over to p.o. Cardizem, try to wean off amiodarone drip Vitals/I&O/Wt Last Vital Signs Temp 99.0 F 06/18/20 14:16 Pulse 119 H 06/18/20 14:26 Resp 18 06/18/20 14:26 BP 90/66 06/18/20 14:16 Pulse Ox 92 06/18/20 14:26 06/17/20 06/18/20 06/18/20 22:59 06:59 14:59 Intake Total 320 / 800 372.0 / 372.0 Output Total 1030 / 1130 1050 / 1050 Balance -1030 / -650 320 / -330 -678.0 / -678.0 Physical Exam Const: COMMON NORMALS: no acute distress and patient oriented x3 HENMT: COMMON NORMALS: normocephalic HEAD & SCALP: normocephalic Neck/C-Spine: COMMON NORMALS: no JVD Resp: COMMON NORMALS: normal respiratory effort, No retractions and No use of accessory muscles AUSCULTATION: crackles Cardio: COMMON NORMALS: no JVD, S1 normal heart sound present and S2 normal heart sound present RATE: tachycardic RHYTHM: abnormal rhythm HEART S OUNDS: S1 normal heart sound present and S2 normal heart sound present GI: COMMON NORMALS: Normal to inspection, nondistended, normoactive bowel sounds present, Soft to palpation, non-tender, No hepatosplenomegaly present, no masses and no bruits PALPATION: Yes Soft to palpation and Yes No hepatosplenomegaly present Extremity: COMMON NORMALS: capillary refill normal, no clubbing, cyanosis or edema, no calf tenderness and no pedal edema Neuro: COMMON NORMALS: patient oriented x3 Psych: COMMON NORMALS: mental status grossly normal Urinary Catheter Management^: Aburto Latex Free: Cath Placed During This Visit: yes Urinary Catheter Date of Insertion: 06/18/20 Urinary Catheter Time of Insertion: : Data : 06/18/20 04:00 06/18/20 08:30 Micro: Microbiology 06/16/20 20:50 Blood Culture - Preliminary Blood NEGATIVE TO DATE 06/16/20 14:08 Blood Culture - Preliminary Blood NEGATIVE TO DATE A&P Assessment and plan (1) Acute respiratory failure with hypoxia: -secondary to covid 19, pneumonitis -secondary bacterial pneumonia -ABG this morning, pH 7.4, PCO2 39.8, PO2 102 on 70% BiPAP -CTA chest: 1. No evidence for pulmonary embolus. 2. Multilobar peripheral ground-glass opacities, typical of COVID-19 pneumonia. This pattern can also be seen with influenza pneumonia and organizing pneumonia -cardiac echo shows: LV systolic function is grossly normal. Regional wall motion abnormalities can not be assessed because of poor visualization Grade 1 diastolic dysfunction PLAN: -We will moved to viral ICU -advair, albuterol -vitamin c, zinc -Broaden antibiotic coverage to vancomycin, Zosyn, azithromycin -Lasix 40 mg IV every 24 hours -Therapeutic Lovenox -decadron -remdesvir -For A. fib with RVR, currently on amiodarone and Cardizem, wean off amiodarone drip, increase Cardizem to 60 every 6, add Metroprolol 25 twice daily -lovenox, dvt ppx -protonix gi prophylaxis -full code Plan for today, continue to monitor respiratory status closely, if oxygen requirements increased, feels more short of breath might require intubation, monitor heart rates, better control Status: Acute (2) Secondary bacterial pneumonia: Status: Acute (3) Pneumonia due to COVID-19 virus: Status: Acute (4) Atrial fibrillation with RVR: Status: Acute Attestations Medical Necessity Statement*: Patient requires hospitalization, inpatient, acute respiratory failure with hypoxia secondary to COVID-19 pneumonia, secondary bacterial infection, A. fib with RVR Coding Level of Care Code Acute Front Office Director for [facility] Diagnoses Acute respiratory failure with hypoxia J96.01 Secondary bacterial pneumonia J15.9 Pneumonia due to COVID-19 virus U07.1; J12.89 Atrial fibrillation with RVR I48.91
[2020-06-18] MEDS: dexamethasone 4 mg/mL INJ 6 MG IVP (15:48)
[2020-06-18] MEDS: benzonatate 100 mg Capsule PO (15:49)
[2020-06-18] MEDS: vancomycin 1,250 MG/250 ML PIGGYBACK 250 MG IV (15:52)
[2020-06-18] MEDS: metoprolol tartrate 25 mg Tablet PO (17:26)
[2020-06-18 17:29] LABS: Lactate (Lactic Acid level) 1.3 mmol/L (0.5-2.2)
--- NOTE | 2020-06-18 18:13 | ECG_ITS ---
[facility] ED Test Date: 2020-06-18 Pat Name: Brook Malin Department: Room: ICU19 Gender: Female Hired Worker: : 1945 Requested By: Miko Sapp Order Number: [id number] Ariel MD: Larissa Colón M.D. Measurements Intervals [place] Rate: 104 P: OR: QRS: 5 QRSD: 85 T: 2 QT: 358 QTc: 471 Interpretive Statements ATRIAL FIBRILLATION WITH RAPID VENTRICULAR RESPONSE NONSPECIFIC T-WAVE ABNORMALITY ABNORMAL RHYTHM ECG Compared to ECG 06/18/2020 01:27:00 No significant changes Electronically Signed On 06-29-2020 6:47:07 REMELT FURNACE EXPEDITER by Larissa Colón M.D. [email or web address] [email or web address] [email or web address]/[id number]
[2020-06-18] MEDS: guaiFENesin 100 mg/5 mL UDC 10 mL 400 MG PO (18:14)
--- NOTE | 2020-06-18 18:57 | PC.NURSE ---
VERY PLEASANT PATIENT, ARRIVED TO ROOM 1445. HR OCCASSIONALLY HITTING 120'S , LOPESSOR IV GIVEN I WAS UNABLE TO GIVE 6 PM MEDS YET. HR CONTINUED TO CLIMB IRREGULARLY AFTER 1730, DR CABAN AWARE AND KINGA WALKER ORDERED AND STARTED AT 1900. PATIENT ON HER PHONE WITH FAMILY, ANXIOUS ABOUT HR ALARM, REPORT GIVEN TO ONCOMING NURSE.
--- NOTE | 2020-06-18 19:11 | PC.NURSE ---
Pt heart rate down to 88-92, BP is low, will decrease Cardizem to 5mg/hr and continue to monitor patient
--- NOTE | 2020-06-18 19:21 | PC.NURSE ---
Called and spoke with Dr Portillo, explained that patient's heart rate had dropped into the upper 70's low 80's, TORB, discontinue Cardizem drip and continue to watch patient for changes.
[2020-06-18] MEDS: azithromycin 500 MG in sodium chloride 0.9% 250 ML 250 MG IV (23:38)
--- NOTE | 2020-06-18 23:51 | PC.NURSE ---
Called Dr Solorzano, explained that patient is still in AFib and beginning to rate is increasing to 100, states he will order Amiodarone instead of restarting cardizem
[2020-06-19] VITALS (26 sets, daily range): BP systolic 85–119; BP diastolic 52–73; PULSE 66–118; RESP 9–34; TEMP 35.8–36.7; O2SAT 87–95
[2020-06-19] MEDS: enoxaparin 120 mg/0.8 mL Syringe 110 MG SUBCUT ×2 (02:30→14:19)
[2020-06-19] MEDS: vancomycin 1,250 MG/250 ML PIGGYBACK 250 MG IV ×2 (02:55→17:32)
[2020-06-19 03:57] LABS: Basophils % 0.2 %; Hematocrit 38.1 % (37.0-47.0); Hemoglobin 12.4 g/dL (11.5-15.3); Lymphocytes # 0.5 10^3/uL (0.8-4.8); Lymphocytes % 4.7 %; Mean Corpuscular HGB Conc 32.5 g/dL (30.0-36.0); Mean Platelet Volume 10.8 fL (7.4-10.4); Monocytes # 0.3 10^3/uL (0.2-0.9); Monocytes % 2.7 %; Neutrophils # 9.29 10^3/uL (1.8-7.7); Neutrophils % 91.8 %; Nucleated Red Blood Cells % 0 %; Platelet Count 258 10^3/cmm (130-400); Red Blood Count 4.28 10^6/uL (4.1-5.3); Red Cell Distribution Width 14.6 % (12.1-15.1); White Blood Count 10.1 10^3/uL (4.0-10.0)
[2020-06-19 03:58] LABS: ABG PCO2 35.6 mmHg (35-45); ABG PH Result 7.46 (7.35-7.45); Arterial Blood Gas Hematocrit 39.8 % (37-47); Base Excess ABG 1.8 mmol/L (-2.0-2.0); Blood Gas Sample Site Brachial, left; Blood Gas Sample Type Arterial; HCO3 ABG 25.4 mmol/L (22-26); Oxygen Device BIPAP; PO2 ABG 77.3 mmHg (80.0-100.0)
[2020-06-19 04:10] LABS: INR 1.29 (0.8-1.2)
[2020-06-19 04:13] LABS: D Dimer 1.48 ug/mIFEU (0-0.59)
[2020-06-19 04:25] LABS: Alanine Aminotransferase 21 U/L (0-33); Albumin Level 2.8 g/dL (3.5-5.2); Alkaline Phosphatase 94 IU/L (35-105); Anion Gap 16.2 (5-19); Aspartate Amino Transferase 31 U/L (0-32); Blood Urea Nitrogen 27 mg/dL (8-23); C Reactive Protein 81.2 mg/L (0.0-4.9); Calcium 8.3 mg/dL (8.5-10.5); Carbon Dioxide 24 mmol/L (22-29); Chloride 104 mmol/L (98-107); Globulin 2.9 g/dL (1.3-4.6); Glucose 149 mg/dL (65-115); Magnesium 2.6 mg/dL (1.7-2.3); Osmolality Calculated 300 mOsm/kg (285-295); Potassium 3.2 mmol/L (3.5-5.1); Sodium 141 mmol/L (136-145); Total Bilirubin 0.3 mg/dL (0.15-1.2); Total Protein 5.7 g/dL (6.6-8.7)
[2020-06-19 04:28] LABS: NT Pro B Type Natriuretic Pept 2128 pg/mL (0-125)
[2020-06-19 04:30] LABS: NT Pro B Type Natriuretic Pept 1991 pg/mL (0-125); Procalcitonin 0.22 ng/mL (0-0.5)
[2020-06-19 04:42] LABS: Creatine Phosphokinase 53 U/L (26-192)
[2020-06-19] MEDS: piperacillin-tazobactam 3.375 GM in sodium chloride 0.9% (plus) 50 ML IV ×3 (05:10→17:34)
--- NOTE | 2020-06-19 06:00 | ECG_ITS ---
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 Measurements Intervals [place] Rate: 93 P: PA: QRS: 3 QRSD: 95 T: 8 QT: 375 QTc: 468 Interpretive Statements ATRIAL FIBRILLATION NONSPECIFIC T-WAVE ABNORMALITY ABNORMAL RHYTHM ECG Compared to ECG 06/18/2020 18:20:09 No significant changes Electronically Signed On 06-29-2020 6:55:56 TRANSONIC ENGINEER by Larissa Colón M.D. [email or web address] [email or web address] medical [id number]
--- NOTE | 2020-06-19 07:00 | XRR_ITS ---
PROCEDURE INFORMATION: Exam: XR Chest, 1 View Exam date and time: 06/19/2020 12:00 AM Age: 74 years old Clinical indication: Shortness of breath; COVID-19 TECHNIQUE: Imaging protocol: XR of the chest Views: 1 view. COMPARISON: XR CHEST 06/18/2020 7:35 AM FINDINGS: Lungs: Slight improvement in bilateral airspace disease. Pleural space: No pleural effusion or pneumothorax. Heart/Mediastinum: The cardiac silhouette is not enlarged. The mediastinal contours are normal. Bones/joints: No acute osseous abnormality. XR/XR chest 1V portable [id number] IMPRESSION: Slight improvement in bilateral airspace disease.
[2020-06-19] MEDS: guaiFENesin 100 mg/5 mL UDC 10 mL 400 MG PO (08:07)
[2020-06-19] MEDS: dilTIAZem 60 mg Tablet PO (08:07)
[2020-06-19] MEDS: acetaminophen 325 mg Tablet 650 MG PO (08:08)
[2020-06-19] MEDS: ascorbic acid 500 mg Tablet 1000 MG PO ×2 (08:08→17:01)
[2020-06-19] MEDS: benzonatate 100 mg Capsule PO (08:09)
[2020-06-19] MEDS: metoprolol tartrate 25 mg Tablet PO (08:09)
[2020-06-19] MEDS: LORazepam 0.5 mg Tablet PO ×2 (08:09→17:02)
[2020-06-19] MEDS: pantoprazole DR 40 mg Tablet PO (08:09)
[2020-06-19] MEDS: zinc gluconate 50 mg Tablet PO (08:09)
[2020-06-19] MEDS: FUROsemide 10 mg/mL SDV 4mL 40 MG IVP ×2 (08:10→17:34)
[2020-06-19] MEDS: lidocaine 1% 5 ML in potassium chloride premix 100 ML 25 ML IV (08:35)
[2020-06-19] MEDS: dilTIAZem 60 mg Tablet 90 MG PO ×3 (11:37→23:10)
--- NOTE | 2020-06-19 11:54 | P.PN_ITS ---
Subjective Subjective: Interval history: This morning patient was examined, she is in the VICU, overnight she had episodes of A. fib with RVR, is on high flow, 80% 65 L, she tells me that she does not really feel short of breath, no fevers, no chills, no nausea, no vomiting, she had a bowel movement this morning, she is eating okay Vitals/I&O/Wt Last Vital Signs Temp 97.7 F 06/19/20 07:41 Pulse 97 06/19/20 11:15 Resp 18 06/19/20 11:15 BP 117/59 06/19/20 07:41 Pulse Ox 93 06/19/20 11:15 06/18/20 06/19/20 06/19/20 22:59 06:59 14:59 Intake Total 945.083 / 1317.083 206.425 / 1523.508 50 / 50 Output Total 175 / 1225 770 / 1995 Balance 770.083 / 92.083 -563.575 / -471.492 50 / 50 Physical Exam Const: COMMON NORMALS: no acute distress and patient oriented x3 HENMT: COMMON NORMALS: normocephalic HEAD & SCALP: normocephalic Neck/C-Spine: COMMON NORMALS: no JVD Resp: COMMON NORMALS: normal respiratory effort, No retractions and No use of accessory muscles AUSCULTATION: diminished lung sounds Cardio: COMMON NORMALS: no JVD, regular rate, regular rhythm, S1 normal heart sound present and S2 normal heart sound present RATE: regular rate RHYTHM: regular rhythm HEART SOUNDS: S1 normal heart sound present and S2 normal heart sound present GI: COMMON NORMALS: Normal to inspection, nondistended, normoactive bowel sounds present, Soft to palpation, non-tender, No hepatosplenomegaly present, no masses and no bruits PALPATION: Yes Soft to palpation and Yes No hepatosplenomegaly present Extremity: COMMON NORMALS: capillary refill normal, no clubbing, cyanosis or edema, no calf tenderness and no pedal edema Neuro: COMMON NORMALS: patient oriented x3 Psych: COMMON NORMALS: mental status grossly normal Urinary Catheter Management^: Aburto Latex Free: Cath Placed During This Visit: yes Reason for Continuing Indwelling Catheter: Accurate Measurement of Urinary Output in Critically Ill Patients Urinary Catheter Date of Insertion: 06/18/20 Urinary Catheter Time of Insertion: : Data : 06/19/20 03:40 06/19/20 03:40 A&P Assessment and plan (1) Acute respiratory failure with hypoxia: -secondary to covid 19, pneumonitis -secondary bacterial pneumonia -ABG this morning, pH 7.46, PCO2 35.6, PO2 77.3 on 90% BiPAP -Currently on heated high flow 85%, 60 L -CTA chest: 1. No evidence for pulmonary embolus. 2. Multilobar peripheral ground-glass opacities, typical of COVID-19 pneumonia. This pattern can also be seen with influenza pneumonia and organizing pneumonia -cardiac echo shows: LV systolic function is grossly normal. Regional wall motion abnormalities can not be assessed because of poor visualization Grade 1 diastolic dysfunction -Patient's oxygen requirements have significantly increased, some of this might be related to her A. fib, but I am worried that a significant component could be related to underlying Covid, patient still wants to remain a full code -Spoke to Vanesa patient's daughter, [phone] PLAN: -Continue viral ICU -advair, albuterol -vitamin c, zinc -On broad-spectrum antibiotic coverage to vancomycin, Zosyn, azithromycin -Follow blood cultures, urine bacterial antigens, MRSA nares -Lasix 40 mg IV every 12 hours -Therapeutic Lovenox -decadron -remdesvir day 3 of 5 -I started convalescent plasma today, day 1 of 2 -For A. fib with RVR, currently on amiodarone drip, Cardizem 30 every 6, Toprol 25 twice daily. Spoke to Dr. Field, stop amiodarone drip. Stopped metoprolol. Switch to Cardizem drip, with Cardizem 90 every 6 hours. As needed metoprolol pushes. Plan on adding p.o. metoprolol once heart rates better controlled. -lovenox, dvt ppx -protonix gi prophylaxis -full code Plan for today, continue to monitor respiratory status closely, if oxygen requirements increased, feels more short of breath might require intubation, monitor heart rates, better control Status: Acute (2) Secondary bacterial pneumonia: Status: Acute (3) Pneumonia due to COVID-19 virus: Status: Acute (4) Atrial fibrillation with RVR: Status: Acute Attestations Medical Necessity Statement*: Patient requires hospitalization for acute respiratory failure with hypoxia secondary COVID-19, secondary bacterial pneumonia, pulmonary edema, A. fib with RVR Coding Level of Care Code Acute [place] for g Fwd Diagnoses Acute respiratory failure with hypoxia J96.01 Secondary bacterial pneumonia J15.9 Pneumonia due to COVID-19 virus U07.1; J12.89 Atrial fibrillation with RVR I48.91
--- NOTE | 2020-06-19 14:01 | PC.SOCIAL ---
IMM Not Updated. Attempted to update IMM twice today, unable to reach patient.
[2020-06-19] MEDS: sodium chloride 0.9% (100 ml) 100 ML 25 ML (14:20)
[2020-06-19] MEDS: dexamethasone 4 mg/mL INJ 6 MG IVP (14:21)
[2020-06-19 16:28] LABS: Vancomycin Trough 13.5 ug/mL (10-15)
[2020-06-19 17:01] LABS: Alanine Aminotransferase 21 U/L (0-33); Albumin Level 2.9 g/dL (3.5-5.2); Alkaline Phosphatase 84 IU/L (35-105); Blood Urea Nitrogen 31 mg/dL (8-23); Carbon Dioxide 22 mmol/L (22-29); Chloride 103 mmol/L (98-107); Globulin 2.5 g/dL (1.3-4.6); Glucose 127 mg/dL (65-115); Osmolality Calculated 298 mOsm/kg (285-295); Sodium 140 mmol/L (136-145); Total Bilirubin 0.4 mg/dL (0.15-1.2); Total Protein 5.4 g/dL (6.6-8.7)
[2020-06-19] MEDS: metoprolol tartrate 1 mg/1 mL SDV 5 mL 5 MG IV (17:02)
[2020-06-19 17:17] LABS: Anion Gap 18.8 (5-19); Aspartate Amino Transferase 36 U/L (0-32); Potassium 3.8 mmol/L (3.5-5.1)
--- NOTE | 2020-06-19 18:52 | PC.NURSE ---
PATIENT HAS HAD 4 INCONTINENT STOOLS THIS SHIFT. IT IS LOOSE AND WATERY. SHE HAS EATEN BETTER THE DAY PROGRESSED. AND IS DRINKING WELL. LABS , TS, AND VANC LEVEL TAKEN FROM PIV. CMP SENT AT 1800 BUT LAB SEEMS TO HAVE RUN IT FROM THE 1500 VANC LEVEL DRAW. LAB WAS CALLED ABOUT IT. DAUGHTER JOSSIE UPDATED ABOUT PENDING PLASMA INFUSION . PERMITS SIGNED. PATIENT WAS NOT TOLERATING EATING OR ACTIVITY IN BED WITHOUT DESATING TO 86 THE BEST PO2 WE GOT HER TO WAS 65,
[2020-06-19 19:05] LABS: Lactate (Lactic Acid level) 1.7 mmol/L (0.5-2.2)
[2020-06-19] MEDS: albuterol 8 gm MDI 2 PUFF INHALATION (20:09)
[2020-06-19] MEDS: azithromycin 500 MG in sodium chloride 0.9% 250 ML 250 MG IV (23:30)
[2020-06-20] VITALS (58 sets, daily range): BP systolic 99–125; BP diastolic 58–74; PULSE 62–140; RESP 8–35; TEMP 36–36.8; O2SAT 83–99
[2020-06-20] MEDS: enoxaparin 120 mg/0.8 mL Syringe 110 MG SUBCUT ×2 (02:20→14:29)
[2020-06-20] MEDS: piperacillin-tazobactam 3.375 GM in sodium chloride 0.9% (plus) 50 ML IV ×3 (03:10→18:14)
[2020-06-20] MEDS: vancomycin 1,250 MG/250 ML PIGGYBACK 250 MG IV (04:13)
[2020-06-20 04:14] LABS: ABG PCO2 32.3 mmHg (35-45); ABG PH Result 7.49 (7.35-7.45); Base Excess ABG 1.8 mmol/L (-2.0-2.0); Blood Gas Allen Test Pos; Blood Gas Sample Site Brachial, left; Blood Gas Sample Type Arterial; HCO3 ABG 24.6 mmol/L (22-26); Oxygen Device NC; PO2 ABG 85.8 mmHg (80.0-100.0)
[2020-06-20] MEDS: dilTIAZem 60 mg Tablet 90 MG PO ×4 (05:00→22:10)
[2020-06-20 05:54] LABS: Basophils % 0.2 %; Hemoglobin 12.7 g/dL (11.5-15.3); Lymphocytes # 0.5 10^3/uL (0.8-4.8); Lymphocytes % 4.5 %; Mean Corpuscular HGB Conc 33.4 g/dL (30.0-36.0); Mean Corpuscular Hemoglobin 29.3 pg (28.0-34.0); Mean Corpuscular Volume 87.8 fL (81-99); Mean Platelet Volume 11.4 fL (7.4-10.4); Monocytes # 0.3 10^3/uL (0.2-0.9); Monocytes % 2.8 %; Neutrophils # 10.97 10^3/uL (1.8-7.7); Neutrophils % 91.2 %; Nucleated Red Blood Cells % 0 %; Platelet Count 320 10^3/cmm (130-400); Red Blood Count 4.33 10^6/uL (4.1-5.3); Red Cell Distribution Width 14.3 % (12.1-15.1)
--- NOTE | 2020-06-20 06:00 | ECG_ITS ---
[facility] ED Test Date: 2020-06-20 Pat Name: Brook Malin Department: Room: ICU19 Gender: Female Appeals Analyst: : 1945 Requested By: Miko Sapp Order Number: [id number] Ariel MD: Larissa Colón M.D. Measurements Intervals [place] Rate: 66 P: 32 VA: 152 QRS: 0 QRSD: 101 T: 0 QT: 417 QTc: 439 Interpretive Statements SINUS RHYTHM POSSIBLE LEFT ATRIAL ENLARGEMENT [-0.1mV P WAVE IN V1/V2] POSSIBLE LEFT VENTRICULAR HYPERTROPHY [VOLTAGE CRITERIA PLUS LAE OR QRS WIDENING] NONSPECIFIC T-WAVE ABNORMALITY Compared to ECG 06/19/2020 04:06:54 Atrial fibrillation no longer present T-wave abnormality still present Electronically Signed On 06-29-2020 6:54:28 LETTERER by Larissa Coóln M.D. [id number]
[2020-06-20 06:32] LABS: NT Pro B Type Natriuretic Pept 1050 pg/mL (0-125); Procalcitonin 0.16 ng/mL (0-0.5)
[2020-06-20 06:38] LABS: INR 1.23 (0.8-1.2)
[2020-06-20 06:50] LABS: Creatine Phosphokinase 44 U/L (26-192)
[2020-06-20 06:52] LABS: D Dimer 1.57 ug/mIFEU (0-0.59)
[2020-06-20] MEDS: FUROsemide 10 mg/mL SDV 4mL 40 MG IVP (06:57)
--- NOTE | 2020-06-20 07:00 | XR_ITS ---
WS: [id number] XR chest 1V portable [id number] REASON FOR EXAM: sob FINDINGS: The chest is unchanged compared to the prior day. Diffuse interstitial infiltrative changes in the mid and lower lung perry compatible with acute/suba cute pneumonitis. No new findings. XR/XR chest 1V portable [id number] IMPRESSION: Stable abnormal chest as above.
[2020-06-20 07:05] LABS: Alanine Aminotransferase 21 U/L (0-33); Albumin Level 3.2 g/dL (3.5-5.2); Alkaline Phosphatase 83 IU/L (35-105); Anion Gap 18.5 (5-19); Aspartate Amino Transferase 27 U/L (0-32); Blood Urea Nitrogen 30 mg/dL (8-23); Calcium 8.4 mg/dL (8.5-10.5); Carbon Dioxide 24 mmol/L (22-29); Chloride 103 mmol/L (98-107); Globulin 2.3 g/dL (1.3-4.6); Glucose 123 mg/dL (65-115); Magnesium 2.3 mg/dL (1.7-2.3); Osmolality Calculated 302 mOsm/kg (285-295); Phosphorus 4.9 mg/dL (2.5-4.5); Potassium 3.5 mmol/L (3.5-5.1); Sodium 142 mmol/L (136-145); Total Bilirubin 0.4 mg/dL (0.15-1.2); Total Protein 5.5 g/dL (6.6-8.7)
[2020-06-20] MEDS: albuterol 8 gm MDI 2 PUFF INHALATION ×2 (07:58→20:21)
[2020-06-20] MEDS: pantoprazole DR 40 mg Tablet PO (08:39)
[2020-06-20] MEDS: ascorbic acid 500 mg Tablet 1000 MG PO ×2 (08:39→17:21)
[2020-06-20] MEDS: zinc gluconate 50 mg Tablet PO (08:39)
--- NOTE | 2020-06-20 10:26 | PC.RESP ---
RT and nurse placed pt in chair
[2020-06-20] MEDS: benzonatate 100 mg Capsule PO ×2 (14:29→22:09)
--- NOTE | 2020-06-20 14:29 | PM.PN ---
Subjective Subjective: Interval history: Hospital course and labs appreciated. On examination sitting comfortably in chair on 60% 45 L FiO2 high flow nasal cannula saturating 92%. She states her energy levels are good and she is working well with physical therapy, Acapella and incentive spirometry. She is trying to do the pulmonary exercises once every other. Denies any nausea, vomiting, headache. States still having mild diarrhea. Denies any abdominal pain or dizziness. Vitals/I&O/Wt Last Vital Signs Temp 97.6 F 06/20/20 12:00 Pulse 77 06/20/20 12:00 Resp 24 H 06/20/20 12:00 BP 125/61 06/20/20 12:00 Pulse Ox 92 06/20/20 12:00 06/19/20 06/20/20 06/20/20 22:59 06:59 14:59 Intake Total 1249.542 / 1861.709 600 / 2461.709 170 / 170 Output Total 1845 / 3395 1650 / 5045 Balance -595.458 / -1533.291 -1050 / -2583.291 170 / 170 Physical Exam Urinary Catheter Management^: Aburto Latex Free: Cath Placed During This Visit: yes Reason for Continuing Indwelling Catheter: Accurate Measurement of Urinary Output in Critically Ill Patients Urinary Catheter Date of Insertion: 06/18/20 Urinary Catheter Time of Insertion: 10:20 Data : 06/20/20 03:50 06/20/20 03:50 Micro: Microbiology 06/19/20 13:00 MRSA Culture - Final Nose 06/19/20 13:00 Bacterial Antigens - Final Urine,Clean Catch A&P Assessment and plan (1) Acute respiratory failure with hypoxia: Status: Acute (2) Pneumonia due to COVID-19 virus: Status: Acute (3) Secondary bacterial pneumonia: Status: Acute (4) Atrial fibrillation with RVR: Status: Acute (5) Diarrhea: Status: Acute Additional A&P Information ARDS/hypoxic respiratory failure due to COVID-19 pneumonia: Wean off oxygen keeping saturation over 90%. Continue with IV remdesivir to finish a 5-day course. Continue with IV Decadron. Patient has finished convalescent plasma. Vitamin C, zinc. Advair, Spiriva. Continue with full dose Lovenox. Hemoglobin has remained stable. If continues to do well will transition over to oral Eliquis tomorrow. Most likely patient will require 14-day course. Low chances of bacterial pneumonia for now. Procalcitonin negative, MRSA negative, bacterial antigen negative. Stop azithromycin and vancomycin. Continue Zosyn for now. If patient continues to do well without any fever for worsening leukocytosis stop Zosyn in next 24 hours. Echocardiogram done earlier in the admission shows grossly normal LV function with grade 1 diastolic dysfunction. Chest imaging reviewed. Will increase Lasix to 60 mg IV twice daily. Continue to monitor renal functions. Daily weights. Input output charting. Patient is not 2.5 L negative since admission. Diarrhea: Most likely secondary to viral illness. We will rule out C. difficile. If C. difficile is negative can start patient on Lomotil as needed. Atrial fibrillation: Paroxysmal: Currently in sinus rhythm. Continue with Cardizem 90 mg every 6 hours. Anticoagulation with full dose Lovenox as above. Full code. Cardiac diet. Full dose anticoagulation with heparin DVT prophylaxis as well. Attestations Medical Necessity Statement*: Patient requires further hospitalization for management of ARDS secondary to COVID-19 pneumonia. Time Spent in Patient Care: Greater than 35 minutes (>than 50% of time spent in counselling and/or direct pt care on unit). Coding Level of Care Code Acute Developmental Electronics Assembler for yonatan Foley Diagnoses Acute respiratory failure with hypoxia J96.01 Pneumonia due to COVID-19 virus U07.1; J12.89 Secondary bacterial pneumonia J15.9 Atrial fibrillation with RVR I48.91 Diarrhea R19.7
[2020-06-20] MEDS: FUROsemide 10 mg/mL SDV 4mL 60 MG IVP (14:30)
[2020-06-20] MEDS: dexamethasone 4 mg/mL INJ 6 MG IVP (16:24)
--- NOTE | 2020-06-20 18:45 | PC.NURSE ---
Received report on patient from Carolyne LOW. Assumed care at this time.
--- NOTE | 2020-06-20 20:46 | PC.NURSE ---
Vanesa, patients daughter called to check on her and get a report on her condition. Patient was happy to hear she called.
--- NOTE | 2020-06-20 22:44 | PC.NURSE ---
Patient placed in prone position. Tolerating activity well.
[2020-06-21] VITALS (64 sets, daily range): BP systolic 83–128; BP diastolic 54–66; PULSE 59–91; RESP 15–33; TEMP 36.5–37.1; O2SAT 78–97
[2020-06-21] MEDS: FUROsemide 10 mg/mL SDV 4mL 60 MG IVP (01:45)
[2020-06-21] MEDS: enoxaparin 120 mg/0.8 mL Syringe 110 MG SUBCUT (02:08)
--- NOTE | 2020-06-21 03:00 | PC.NURSE ---
Patient rolled herself from prone position to her right side. Stated that she slept so good on her stomach.
[2020-06-21] MEDS: piperacillin-tazobactam 3.375 GM in sodium chloride 0.9% (plus) 50 ML IV ×3 (03:09→17:57)
[2020-06-21 04:26] LABS: ABG PH Result 7.46 (7.35-7.45); Arterial Blood Gas Hematocrit 38.6 % (37-47); Base Excess ABG 4.7 mmol/L (-2.0-2.0); Blood Gas Allen Test Pos; Blood Gas Operator Identificat CAK; Blood Gas Sample Site Brachial, right; Blood Gas Sample Type Arterial; HCO3 ABG 29.1 mmol/L (22-26); Oxygen Device NC
[2020-06-21 05:03] LABS: Basophils % 0.2 %; Hematocrit 36.8 % (37.0-47.0); Hemoglobin 12.2 g/dL (11.5-15.3); Lymphocytes # 0.5 10^3/uL (0.8-4.8); Lymphocytes % 5.3 %; Mean Corpuscular HGB Conc 33.2 g/dL (30.0-36.0); Mean Corpuscular Hemoglobin 28.8 pg (28.0-34.0); Mean Platelet Volume 11.5 fL (7.4-10.4); Monocytes # 0.2 10^3/uL (0.2-0.9); Monocytes % 2.3 %; Neutrophils # 9.07 10^3/uL (1.8-7.7); Neutrophils % 89.8 %; Nucleated Red Blood Cells % 0 %; Platelet Count 324 10^3/cmm (130-400); Red Blood Count 4.23 10^6/uL (4.1-5.3); Red Cell Distribution Width 14.3 % (12.1-15.1); White Blood Count 10.1 10^3/uL (4.0-10.0)
[2020-06-21 05:25] LABS: D Dimer 1.54 ug/mIFEU (0-0.59)
[2020-06-21 05:30] LABS: Alanine Aminotransferase 22 U/L (0-33); Albumin Level 2.9 g/dL (3.5-5.2); Alkaline Phosphatase 80 IU/L (35-105); Aspartate Amino Transferase 32 U/L (0-32); Blood Urea Nitrogen 30 mg/dL (8-23); Calcium 8.3 mg/dL (8.5-10.5); Carbon Dioxide 26 mmol/L (22-29); Chloride 104 mmol/L (98-107); Glucose 139 mg/dL (65-115); Magnesium 2.2 mg/dL (1.7-2.3); Osmolality Calculated 304 mOsm/kg (285-295); Phosphorus 4.6 mg/dL (2.5-4.5); Sodium 143 mmol/L (136-145); Total Bilirubin 0.4 mg/dL (0.15-1.2); Total Protein 5.9 g/dL (6.6-8.7)
[2020-06-21 05:32] LABS: NT Pro B Type Natriuretic Pept 228 pg/mL (0-125); Procalcitonin 0.12 ng/mL (0-0.5)
[2020-06-21 05:34] LABS: Anion Gap 16.2 (5-19); Potassium 3.2 mmol/L (3.5-5.1)
--- NOTE | 2020-06-21 06:00 | ECG_ITS ---
[facility] ED Test Date: 2020-06-21 Pat Name: Brook Malin Department: Room: ICU19 Gender: Female Aqua Ammonia Operator: : 1945 Requested By: Miko Sapp Order Number: [id number] Ariel MD: Larissa Colón M.D. Measurements Intervals [place] Rate: 64 P: 32 NV: 159 QRS: 1 QRSD: 104 T: -25 QT: 425 QTc: 442 Interpretive Statements SINUS RHYTHM MINIMAL VOLTAGE CRITERIA FOR LVH, CONSIDER NORMAL VARIANT [MEETS CRITERIA IN ONE OF: R(aVL), S(V1), R(V5), R(V5/V6)+S(V1)] NONSPECIFIC T-WAVE ABNORMALITY Compared to ECG 06/20/2020 05:23:59 No significant changes Electronically Signed On 06-29-2020 6:53:02 TELEGRAPHIC INSTRUMENT SUPERVISOR by Larissa Colón M.D. [id number]
[2020-06-21 06:04] LABS: Creatine Phosphokinase 100 U/L (26-192)
[2020-06-21] MEDS: albuterol 8 gm MDI 2 PUFF INHALATION ×2 (07:51→20:31)
[2020-06-21] MEDS: dilTIAZem 60 mg Tablet 90 MG PO ×4 (08:33→22:39)
[2020-06-21] MEDS: zinc gluconate 50 mg Tablet PO (08:35)
[2020-06-21] MEDS: pantoprazole DR 40 mg Tablet PO (08:35)
[2020-06-21] MEDS: ascorbic acid 500 mg Tablet 1000 MG PO ×2 (08:35→17:57)
[2020-06-21] MEDS: benzonatate 100 mg Capsule PO ×2 (08:35→21:29)
[2020-06-21] MEDS: potassium chloride ER 10 mEq Tablet 40 MEQ PO (14:15)
--- NOTE | 2020-06-21 15:03 | PC.SOCIAL ---
Pg 2 IMM. Explained to pt Pg 2 IMM, via phone. No questions voiced. Signed, dated, & timed copy for chart.
--- NOTE | 2020-06-21 15:58 | PM.PN ---
Subjective Subjective: Interval history: Events overnight. On examination patient sitting comfortably in chair working with incentive spirometry. Energy levels have been good. Patient has been working aggressively with incentive spirometry and flutter valve. Oxygen supplementation have been coming down the patient is still on heated high flow. Currently she is on 60 L 40% saturating more than 90%. Patient states she is feeling little better today. Denies any nausea, vomiting, headache. Appetite is fair. Vitals/I&O/Wt Last Vital Signs Temp 98.8 F 06/21/20 15:00 Pulse 75 06/21/20 15:05 Resp 16 06/21/20 15:05 BP 109/66 06/21/20 15:00 Pulse Ox 92 06/21/20 15:05 06/21/20 06/21/20 06/21/20 06:59 14:59 22:59 Intake Total 330 / 1642 770 / 770 Output Total 1150 / 4545 Balance -820 / -2903 770 / 770 Physical Exam Narrative: EXAM NARRATIVE: General: No acute distress, AO x3, jovial HEENT: PERRLA, pupils bilaterally equal and reactive Chest: Normal vesicular breath sounds, generalized rhonchi all over the lung perry, more in the right and left, equal good air entry bilaterally CVS: S1-S2 regular, no murmurs, no tachycardia, no gallops, no rubs Abdomen: Soft, nontender, no organomegaly, bowel sounds present Neuro: No focal deficits, no facial deformity, AO x3, power 5/5 in all limbs Urinary Catheter Management^: Aburto Latex Free: Cath Placed During This Visit: yes Reason for Continuing Indwelling Catheter: Accurate Measurement of Urinary Output in Critically Ill Patients Urinary Catheter Date of Insertion: 06/18/20 Urinary Catheter Time of Insertion: 10: Data : 06/21/20 04:00 06/21/20 04:00 A&P Assessment and plan (1) Acute respiratory failure with hypoxia: Status: Acute (2) Pneumonia due to COVID-19 virus: Status: Acute (3) Secondary bacterial pneumonia: Status: Acute (4) Atrial fibrillation with RVR: Status: Acute (5) Diarrhea: Status: Acute Additional A&P Information ARDS/hypoxic respiratory failure due to COVID-19 pneumonia: Wean off oxygen keeping saturation over 90%. Last dose of remdesivir today. Continue with IV Decadron. Patient has finished convalescent plasma. Vitamin C, zinc. Advair, Spiriva. Switch over to Eliquis 5 mg twice daily today. Most likely patient will require 14-day course. Low chances of bacterial pneumonia for now. Procalcitonin negative, MRSA negative, bacterial antigen negative. Stop azithromycin and vancomycin yesterday. Patient has remained afebrile. We will stop Zosyn as well after finishing 5-day course tomorrow. Echocardiogram done earlier in the admission shows grossly normal LV function with grade 1 diastolic dysfunction. Chest imaging reviewed. Patient has had good urine output with Lasix 60 mg IV twice daily. Overall 2.6 L negative since yesterday. Switch over to oral Lasix 40 mg daily for now. We will continue to monitor fluid status. Daily weights. Input output charting. Patient is net 4.7 L negative since admission. Diarrhea: Most likely secondary to viral illness. We will rule out C. difficile. If C. difficile is negative can start patient on Lomotil as needed. Atrial fibrillation: Paroxysmal: Currently in sinus rhythm. Continue with Cardizem 90 mg every 6 hours, metoprolol as needed. Anticoagulation with full dose Lovenox as above. Full code. Cardiac diet. Eliquis therapy DVT prophylaxis as well PT evaluation. Attestations Medical Necessity Statement*: Patient needs further hospitalization for management of hypoxia/ARDS due to COVID-19 pneumonia while patient is high flow dependent. Time Spent in Patient Care: Greater than 35 minutes (>than 50% of time spent in counselling and/or direct pt care on unit). Coding Level of Care Code Acute Merchandise Adjustment Clerk for Nacho Foley Diagnoses Acute respiratory failure with hypoxia J96.01 Pneumonia due to COVID-19 virus U07.1; J12.89 Secondary bacterial pneumonia J15.9 Atrial fibrillation with RVR I48.91 Diarrhea R19.7
[2020-06-21] MEDS: dexamethasone 4 mg/mL INJ 6 MG IVP (16:05)
[2020-06-21] MEDS: apixaban 5 mg Tablet PO (18:01)
[2020-06-22] VITALS (40 sets, daily range): BP systolic 98–128; BP diastolic 52–87; PULSE 61–88; RESP 11–27; TEMP 36.6–37.7; O2SAT 78–97
--- NOTE | 2020-06-22 03:05 | PC.NURSE ---
Stool sample sent per orders.
[2020-06-22] MEDS: piperacillin-tazobactam 3.375 GM in sodium chloride 0.9% (plus) 50 ML IV ×3 (03:52→18:15)
[2020-06-22 04:49] LABS: ABG PH Result 7.51 (7.35-7.45); Arterial Blood Gas Hematocrit 37.6 % (37-47); Base Excess ABG 6.5 mmol/L (-2.0-2.0); Blood Gas Allen Test Pos; Blood Gas Operator Identificat JB; Blood Gas Sample Site Radial, right; Blood Gas Sample Type Arterial; Oxygen Device HAG
[2020-06-22 04:56] LABS: Basophils % 0.3 %; Hematocrit 37.1 % (37.0-47.0); Hemoglobin 12.3 g/dL (11.5-15.3); Lymphocytes # 0.5 10^3/uL (0.8-4.8); Lymphocytes % 6.7 %; Mean Corpuscular HGB Conc 33.2 g/dL (30.0-36.0); Mean Corpuscular Hemoglobin 28.9 pg (28.0-34.0); Mean Corpuscular Volume 87.1 fL (81-99); Mean Platelet Volume 10.6 fL (7.4-10.4); Monocytes # 0.2 10^3/uL (0.2-0.9); Monocytes % 2.8 %; Neutrophils # 6.78 10^3/uL (1.8-7.7); Nucleated Red Blood Cells % 0 %; Platelet Count 338 10^3/cmm (130-400); Red Blood Count 4.26 10^6/uL (4.1-5.3); Red Cell Distribution Width 14.2 % (12.1-15.1)
[2020-06-22 05:21] LABS: D Dimer 1.97 ug/mIFEU (0-0.59)
[2020-06-22 05:29] LABS: Alanine Aminotransferase 35 U/L (0-33); Alkaline Phosphatase 80 IU/L (35-105); Anion Gap 14.2 (5-19); Aspartate Amino Transferase 45 U/L (0-32); Blood Urea Nitrogen 28 mg/dL (8-23); C Reactive Protein 25.8 mg/L (0.0-4.9); Carbon Dioxide 28 mmol/L (22-29); Chloride 103 mmol/L (98-107); Globulin 2.7 g/dL (1.3-4.6); Glucose 111 mg/dL (65-115); Osmolality Calculated 300 mOsm/kg (285-295); Phosphorus 3.8 mg/dL (2.5-4.5); Potassium 3.2 mmol/L (3.5-5.1); Sodium 142 mmol/L (136-145); Total Bilirubin 0.5 mg/dL (0.15-1.2); Total Protein 5.7 g/dL (6.6-8.7)
[2020-06-22 05:31] LABS: Procalcitonin 0.11 ng/mL (0-0.5)
[2020-06-22] MEDS: dilTIAZem 60 mg Tablet 90 MG PO ×4 (05:41→22:11)
[2020-06-22 05:59] LABS: Calcium 8.5 mg/dL (8.5-10.5); Magnesium 2.3 mg/dL (1.7-2.3)
--- NOTE | 2020-06-22 06:00 | ECG_ITS ---
[facility] ED Test Date: 2020-06-22 Pat Name: Brook Malin Department: Room: ICU19 Gender: Female Cooling Pan Tender: : 1945 Requested By: Miko Sapp Order Number: [id number] Ariel MD: Larissa Colón M.D. Measurements Intervals [place] Rate: 64 P: 43 CA: 155 QRS: 1 QRSD: 106 T: -9 QT: 443 QTc: 459 Interpretive Statements SINUS RHYTHM NONSPECIFIC T-WAVE ABNORMALITY Compared to ECG 06/21/2020 06:20:41 No significant changes Electronically Signed On 06-29-2020 6:52:39 SECURITY COMPLIANCE ENGINEER by Larissa Colón M.D. [id number]
[2020-06-22 06:17] LABS: Slide Review Slide Review Perform
[2020-06-22] MEDS: albuterol 8 gm MDI 2 PUFF INHALATION ×2 (08:04→20:57)
[2020-06-22] MEDS: apixaban 5 mg Tablet PO ×2 (08:39→17:21)
[2020-06-22] MEDS: zinc gluconate 50 mg Tablet PO (08:39)
[2020-06-22] MEDS: potassium chloride ER 10 mEq Tablet 40 MEQ PO (08:39)
[2020-06-22] MEDS: pantoprazole DR 40 mg Tablet PO (08:39)
[2020-06-22] MEDS: ascorbic acid 500 mg Tablet 1000 MG PO ×2 (08:39→17:22)
[2020-06-22] MEDS: FUROsemide 40 mg Tablet PO (08:40)
[2020-06-22] MEDS: benzonatate 100 mg Capsule PO ×2 (08:40→22:11)
[2020-06-22] MEDS: loperamide 2 mg Capsule PO (12:45)
--- NOTE | 2020-06-22 15:53 | P.PN_ITS ---
Subjective Subjective: Interval history: No acute events overnight. On examination patient is sitting in chair. She just finished a course of self proning in bed. She is on 50 L 80% saturating more than 92%. Denies any nausea vomiting, headache. States appetite is appropriate. Denies any chest pain. Labs and vitals noted. Vitals/I&O/Wt Last Vital Signs Temp 98.7 F 06/22/20 15:22 Pulse 72 06/22/20 15:08 Resp 16 06/22/20 15:08 BP 112/65 06/22/20 08:00 Pulse Ox 92 06/22/20 15:08 06/22/20 06/22/20 06/22/20 06:59 14:59 22:59 Intake Total 480 / 1590 410 / 410 Output Total 675 / 2460 1000 / 1000 Balance -195 / -870 -590 / -590 Physical Exam Narrative: EXAM NARRATIVE: General: No acute distress, AO x3, jovial HEENT: PERRLA, pupils bilaterally equal and reactive Chest: Normal vesicular breath sounds, generalized rhonchi all over the lung perry, more in the right and left, equal good air entry bilaterally CVS: S1-S2 regular, no murmurs, no tachycardia, no gallops, no rubs Abdomen: Soft, nontender, no organomegaly, bowel sounds present Neuro: No focal deficits, no facial deformity, AO x3, power 5/5 in all limbs Urinary Catheter Management^: Aburto Latex Free: Cath Placed During This Visit: yes Reason for Continuing Indwelling Catheter: Accurate Measurement of Urinary Output in Critically Ill Patients Urinary Catheter Date of Insertion: 06/18/20 Urinary Catheter Time of Insertion: 10:20 Data : 06/22/20 04:05 06/22/20 04:05 Micro: Microbiology 06/22/20 02:30 Stool Lactoferrin - Final Stool Enteric Pathogens (PCR) - Final Parasite Antigen Panel - Final C.difficile Toxin B Gene (PCR) - Final Occult Blood (FIT) - Final 06/16/20 20:50 Blood Culture - Final Blood NO GROWTH AFTER 5 DAYS 06/16/20 14:08 Blood Culture - Final Blood NO GROWTH AFTER 5 DAYS A&P Assessment and plan (1) Acute respiratory failure with hypoxia: Status: Acute (2) Pneumonia due to COVID-19 virus: Status: Acute (3) Secondary bacterial pneumonia: Status: Acute (4) Atrial fibrillation with RVR: Status: Acute (5) Diarrhea: Status: Acute Additional A&P Information ARDS/hypoxic respiratory failure due to COVID-19 pneumonia: Wean off oxygen keeping saturation over 90%. Last dose of remdesivir today. Continue with IV Decadron. Patient has finished convalescent plasma. Vitamin C, zinc. Budesonide twice daily, DuoNebs every 4 hours as patient is on high flow. Continue with Eliquis 5 mg twice daily today. Most likely patient will require 14-day course. Low chances of bacterial pneumonia for now. Procalcitonin negative, MRSA negative, bacterial antigen negative. Stop azithromycin and vancomycin yesterday. Patient has remained afebrile. We will stop Zosyn as well after finishing 5-day course today. Echocardiogram done earlier in the admission shows grossly normal LV function with grade 1 diastolic dysfunction. Chest imaging reviewed. Patient has had good urine output with Lasix 60 mg IV twice daily. Overall 7 L negative since admission. BMP stable. Will replace potassium. We will continue to monitor BMP. For now continue with oral Lasix 40 mg daily while monitoring fluid status and BMPs. Daily weights. Input output charting. Diarrhea: Most likely secondary to viral illness. C. difficile negative. Start patient on Lomotil as needed. Atrial fibrillation: Paroxysmal: Currently in sinus rhythm. Continue with Cardizem 90 mg every 6 hours, metoprolol as needed. Anticoagulation with full dose Lovenox as above. Full code. Cardiac diet. Eliquis therapy DVT prophylaxis as well PT evaluation. Plan for the day: Continue to wean oxygen keeping saturation around 88%. Aggressive pulmonary toilet and self proning. Oral Lasix to keep patient as dry as possible. Last dose of Zosyn today to finish a 5-day course. Discharge planning: Patient has been high flow dependent. As patient continues to remain on high flow it is quite possible that patient would require a slow prolonged pulmonary rehabilitation. We will ask care coordination team to look into LTAC placement if possible. Will discuss with patient and patient's family as well. Attestations Medical Necessity Statement*: Patient requires further hospitalization for management of ARDS because of COVID-19 pneumonia as patient is high flow dependent. Time Spent in Patient Care: Greater than 35 minutes (>than 50% of time spent in counselling and/or direct pt care on unit) . Coding Level of Care Code Acute Retail Security Professional for Chg Fwd Diagnoses Acute respiratory failure with hypoxia J96.01 Pneumonia due to COVID-19 virus U07.1; J12.89 Secondary bacterial pneumonia J15.9 Atrial fibrillation with RVR I48.91 Diarrhea R19.7
[2020-06-22] MEDS: dexamethasone 4 mg/mL INJ 6 MG IVP (17:19)
[2020-06-23] VITALS (35 sets, daily range): BP systolic 98–139; BP diastolic 62–110; PULSE 69–95; RESP 14–36; TEMP 36.5–37.6; O2SAT 81–96
[2020-06-23] MEDS: dilTIAZem 60 mg Tablet 90 MG PO ×4 (04:23→22:15)
[2020-06-23] MEDS: loperamide 2 mg Capsule PO ×5 (04:23→22:15)
[2020-06-23 05:57] LABS: Basophils % 0.4 %; Eosinophils # 0.2 10^3/uL (0.0-0.8); Eosinophils % 2.2 %; Hematocrit 38.2 % (37.0-47.0); Hemoglobin 12.6 g/dL (11.5-15.3); Lymphocytes # 0.6 10^3/uL (0.8-4.8); Mean Corpuscular Hemoglobin 28.8 pg (28.0-34.0); Mean Corpuscular Volume 87.4 fL (81-99); Mean Platelet Volume 10.7 fL (7.4-10.4); Monocytes # 0.2 10^3/uL (0.2-0.9); Monocytes % 1.6 %; Neutrophils # 8.59 10^3/uL (1.8-7.7); Neutrophils % 83.8 %; Nucleated Red Blood Cells % 0 %; Platelet Count 327 10^3/cmm (130-400); Red Blood Count 4.37 10^6/uL (4.1-5.3); Red Cell Distribution Width 14.1 % (12.1-15.1); White Blood Count 10.3 10^3/uL (4.0-10.0)
--- NOTE | 2020-06-23 06:00 | XRR_ITS ---
PROCEDURE INFORMATION: Exam: XR Chest, 1 View Exam date and time: 06/23/2020 6:18 AM Age: 74 years old Clinical indication: Condition or disease; Other: Covid TECHNIQUE: Imaging protocol: XR of the chest Views: 1 view. COMPARISON: CR XR chest 1V portable [id number] 06/20/2020 5:34 AM FINDINGS: Lungs: Worsening bilateral pulmonary edema pattern is seen. No consolidation. Pleural space: Unremarkable. No pleural effusion. No pneumothorax. Heart/Mediastinum: Unremarkable. No cardiomegaly. Bones/joints: Unremarkable. XR/XR chest 1V portable [id number] IMPRESSION: Worsening bilateral pulmonary edema is seen. CHF versus COVID-19 pneumonia.
[2020-06-23 06:14] LABS: Fibrinogen 512 mg/dL (174-498)
[2020-06-23 06:27] LABS: NT Pro B Type Natriuretic Pept 207 pg/mL (0-125); Procalcitonin 0.21 ng/mL (0-0.5)
[2020-06-23 06:32] LABS: Alanine Aminotransferase 40 U/L (0-33); Albumin Level 2.8 g/dL (3.5-5.2); Alkaline Phosphatase 93 IU/L (35-105); Anion Gap 12.4 (5-19); Aspartate Amino Transferase 49 U/L (0-32); Blood Urea Nitrogen 22 mg/dL (8-23); Calcium 8.2 mg/dL (8.5-10.5); Carbon Dioxide 29 mmol/L (22-29); Chloride 100 mmol/L (98-107); Globulin 2.7 g/dL (1.3-4.6); Glucose 92 mg/dL (65-115); Osmolality Calculated 289 mOsm/kg (285-295); Potassium 3.4 mmol/L (3.5-5.1); Sodium 138 mmol/L (136-145); Total Bilirubin 0.7 mg/dL (0.15-1.2); Total Protein 5.5 g/dL (6.6-8.7)
[2020-06-23 06:38] LABS: C Reactive Protein 63.1 mg/L (0.0-4.9); Creatine Phosphokinase 65 U/L (26-192); Ferritin 958 ng/mL (15-150); Lactate Dehydrogenase 629 U/L (135-214)
[2020-06-23 07:49] LABS: Slide Review Slide Review Perform
--- NOTE | 2020-06-23 08:28 | PC.SOCIAL ---
IMM Not Given Page 2 of IMM update not given as patient is not expected to d/c in the next 48 hours.
[2020-06-23] MEDS: albuterol 8 gm MDI 2 PUFF INHALATION (09:32)
[2020-06-23] MEDS: guaiFENesin 100 mg/5 mL UDC 10 mL 400 MG PO (10:07)
[2020-06-23] MEDS: apixaban 5 mg Tablet PO ×2 (10:07→14:34)
[2020-06-23] MEDS: ascorbic acid 500 mg Tablet 1000 MG PO ×2 (10:08→14:33)
[2020-06-23] MEDS: LORazepam 0.5 mg Tablet PO ×2 (10:09→14:34)
[2020-06-23] MEDS: FUROsemide 40 mg Tablet PO (10:09)
[2020-06-23] MEDS: potassium chloride ER 10 mEq Tablet 40 MEQ PO (10:10)
[2020-06-23] MEDS: benzonatate 100 mg Capsule PO ×3 (10:10→20:17)
[2020-06-23] MEDS: zinc gluconate 50 mg Tablet PO (10:14)
[2020-06-23] MEDS: pantoprazole DR 40 mg Tablet PO (10:14)
[2020-06-23] MEDS: piperacillin-tazobactam 3.375 GM in sodium chloride 0.9% (plus) 50 ML 12.5 GM PHA2DOSE (13:03)
[2020-06-23] MEDS: FUROsemide 10 mg/mL SDV 4mL 40 MG IVP (13:04)
--- NOTE | 2020-06-23 13:40 | PM.PN ---
Subjective Subjective: Interval history: No acute events overnight. During my examination patient was laying down in prone position. She continues to need 50 L 80% FiO2 to maintain saturation around 90. She feels very more tired and worn out today. Appetite is the same. Is been working fine with Acapella and incentive spirometry. Denies any nausea, vomiting, headache. T-max in last 24 hours 99.7 Fahrenheit. Vitals/I&O/Wt Last Vital Signs Temp 98.9 F 06/23/20 11:00 Pulse 78 06/23/20 12:00 Resp 26 H 06/23/20 12:00 BP 136/110 06/23/20 09:00 Pulse Ox 90 06/23/20 12:00 06/22/20 06/23/20 06/23/20 22:59 06:59 14:59 Intake Total 170 / 580 250 / 830 150 / 150 Output Total 200 / 1200 150 / 1350 Balance -30 / -620 100 / -520 150 / 150 Physical Exam Narrative: EXAM NARRATIVE: General: No acute distress, AO x3, jovial HEENT: PERRLA, pupils bilaterally equal and reactive Chest: Normal vesicular breath sounds, generalized rhonchi all over the lung perry, more in the right and left, equal good air entry bilaterally CVS: S1-S2 regular, no murmurs, no tachycardia, no gallops, no rubs Abdomen: Soft, nontender, no organomegaly, bowel sounds present Neuro: No focal deficits, no facial deformity, AO x3, power 5/5 in all limbs Urinary Catheter Management^: Aburto Latex Free: Cath Placed During This Visit: yes Reason for Continuing Indwelling Catheter: Accurate Measurement of Urinary Output in Critically Ill Patients Urinary Catheter Date of Insertion: 06/18/20 Urinary Catheter Time of Insertion: 10:20 Data : 06/23/20 04:55 06/23/20 04:55 Micro: Microbiology 06/22/20 02:30 Stool Lactoferrin - Final Stool Enteric Pathogens (PCR) - Final Parasite Antigen Panel - Final C.difficile Toxin B Gene (PCR) - Final Occult Blood (FIT) - Final A&P Assessment and plan (1) Acute respiratory failure with hypoxia: Status: Acute (2) Pneumonia due to COVID-19 virus: Status: Acute (3) Secondary bacterial pneumonia: Status: Acute (4) Atrial fibrillation with RVR: Status: Acute (5) Diarrhea: Status: Acute Additional A&P Information ARDS/hypoxic respiratory failure due to COVID-19 pneumonia: Wean off oxygen keeping saturation over 90%. She has finished course of remdesivir and also received 2 units of convalescent plasma during this admission. Continue with IV Decadron. Vitamin C, zinc. Budesonide twice daily, DuoNebs every 4 hours as patient is on high flow. Continue with Eliquis 5 mg twice daily today. Most likely patient will require 14-day course. Low chances of bacterial pneumonia for now. Procalcitonin negative, MRSA negative, bacterial antigen negative. Stop azithromycin and vancomycin yesterday. Patient has remained afebrile. Because patient is still clinically sick and had a low-grade temperature last night we will continue the Zosyn to finish a 7-day course. Day 6 today. We will plan to do a CT scan of her chest for reimaging but given patient requiring high amount of oxygen we will wait for now and continue with aggressive pulmonary toilet and self proning. Echocardiogram done earlier in the admission shows grossly normal LV function with grade 1 diastolic dysfunction. Chest imaging reviewed. Overall around 6.7 L negative. Because patient is in ARDS we will try to keep her as negative and dry as possible. BMP stable. Switch Lasix to 40 mg IV twice daily. Daily weights. Input output charting. Diarrhea: Most likely secondary to viral illness. C. difficile negative. Start patient on Lomotil as needed. Atrial fibrillation: Paroxysmal: Currently in sinus rhythm. Continue with Cardizem 90 mg every 6 hours, metoprolol as needed. Anticoagulation with full dose Lovenox as above. Full code. Cardiac diet. Eliquis therapy DVT prophylaxis as well PT evaluation. Plan for the day: Continue to wean oxygen keeping saturation around 88%. Aggressive pulmonary toilet and self proning. Continue with IV Lasix with strict input output charting and effort to get patient as dry as possible because of ARDS. Continue Zosyn for 2 more days to finish a 7-day course. Discharge planning: Patient has been high flow dependent. As patient continues to remain on high flow it is quite possible that patient would require a slow prolonged pulmonary rehabilitation. We will ask care coordination team to look into LTAC placement if possible. We will discuss the same with family once patient is little more stable. Goals of care discussion: Discussed with the patient and her daughter Ms. Alexis regarding CODE STATUS and goals of care. We discussed that patient is on high amount of oxygen supplementation to maintain her saturation at present. Discussed that patient is critically ill and going forward might require mechanical ventilation. Patient states that she is very scared of being on a ventilator. All the questions were answered. She was reassured. I discussed with her that chances of her coming off the ventilator if she went on one would be 50-50 which is a good chance though she is at a higher risk of being ventilator dependent because of advanced age and patient deteriorating or requiring high amount of oxygen late in her disease process while thing going in a fever is that she does not have any comorbidities. Patient stated if needed she is okay with ventilator support for some time. Attestations Medical Necessity Statement*: Requires further hospitalization for management of ARDS because of COVID-19 pneumonia. Time Spent in Patient Care: Greater than 35 minutes (>than 50% of time spent in counselling and/or direct pt care on unit). Coding Level of Care Code Acute Primer Waterproofing Machine Adjuster for Nacho Foley Diagnoses Acute respiratory failure with hypoxia J96.01 Pneumonia due to COVID-19 virus U07.1; J12.89 Secondary bacterial pneumonia J15.9 Atrial fibrillation with RVR I48.91 Diarrhea R19.7
[2020-06-23] MEDS: ipratropium-albuterol 3 mL Neb INHALATION ×4 (13:47→23:48)
[2020-06-23] MEDS: potassium chloride ER 20 mEq Tablet 40 MEQ PO (14:31)
[2020-06-23] MEDS: dexamethasone 4 mg/mL INJ 6 MG IVP (14:31)
--- NOTE | 2020-06-23 18:54 | PC.NURSE ---
patient was feeling weak and tired this am and requiring 85% to 90 in fio2. even in a prone position. sitting up supine this am she would go down to 79. by the afternoon she was ablle to maintain sats of 88 to 90 while her daughter was bedside and she was on 90 hhf for oxygenation. she stooled 2x without being aware. lopermide given. her daughter was at bedside for over an hour. Vanesa will be her medical decision maker and she will consult others in the family if needed.
[2020-06-23] MEDS: ALPRAZolam 0.25 mg Tablet 0.5 MG PO (20:17)
[2020-06-23] MEDS: piperacillin-tazobactam 3.375 GM in sodium chloride 0.9% (plus) 50 ML IV (20:17)
[2020-06-23] MEDS: budesonide 0.5 mg/2 mL Neb INHALATION (20:21)
--- NOTE | 2020-06-23 22:10 | PC.NURSE ---
Assessment: Found patient in bed AAOX3, watching TV while on Bipap. Pt doesnt to appear to be in any distress. VSS. Denies any needs at this time.
[2020-06-24] VITALS (39 sets, daily range): BP systolic 96–139; BP diastolic 52–87; PULSE 63–90; RESP 13–29; TEMP 36.6–36.7; O2SAT 84–96
[2020-06-24] MEDS: dilTIAZem 60 mg Tablet 90 MG PO ×4 (04:18→22:33)
[2020-06-24] MEDS: piperacillin-tazobactam 3.375 GM in sodium chloride 0.9% (plus) 50 ML IV ×2 (04:19→13:34)
[2020-06-24 04:40] LABS: ABG PCO2 41.9 mmHg (35-45); Alveolar-Arterial Oxygen Gradi 70.2 mmHg (5-10); Arterial Blood Gas Hematocrit 41.4 % (37-47); Base Excess ABG 8.8 mmol/L (-2.0-2.0); Blood Gas Allen Test Pos; Blood Gas Sample Site Radial, left; Blood Gas Sample Type Arterial; HCO3 ABG 32.8 mmol/L (22-26); HGB O2 Sat 87.7 % (95-100); Ionized Calcium Level - ABG 1.1 mmol/L (1.1-1.4); Methemoglobin 0.8 % (0.4-1.5); Oxygen Device BIPAP; Oxygen Saturation ABG 89.3; PO2 ABG 51.1 mmHg (80.0-100.0); Potassium Level - ABG 4.1 mmol/L (3.5-5.0); Total Hemoglobin 13.5 g/dL (12-16)
[2020-06-24] MEDS: ipratropium-albuterol 3 mL Neb INHALATION ×5 (04:47→20:11)
[2020-06-24] MEDS: FUROsemide 10 mg/mL SDV 4mL 40 MG IVP ×2 (05:23→13:36)
[2020-06-24 05:30] LABS: Basophils # 0.1 10^3/uL (0.0-0.1); Basophils % 0.5 %; Hematocrit 39.2 % (37.0-47.0); Hemoglobin 12.9 g/dL (11.5-15.3); Lymphocytes # 0.4 10^3/uL (0.8-4.8); Lymphocytes % 2.5 %; Mean Corpuscular HGB Conc 32.9 g/dL (30.0-36.0); Mean Corpuscular Hemoglobin 28.7 pg (28.0-34.0); Mean Corpuscular Volume 87.3 fL (81-99); Mean Platelet Volume 10.6 fL (7.4-10.4); Monocytes # 0.2 10^3/uL (0.2-0.9); Monocytes % 1.1 %; Neutrophils # 14.83 10^3/uL (1.8-7.7); Neutrophils % 91.2 %; Nucleated Red Blood Cells % 0 %; Platelet Count 259 10^3/cmm (130-400); Red Blood Count 4.49 10^6/uL (4.1-5.3); Red Cell Distribution Width 14.2 % (12.1-15.1); White Blood Count 16.3 10^3/uL (4.0-10.0)
[2020-06-24 05:46] LABS: Fibrinogen 677 mg/dL (174-498)
[2020-06-24 06:05] LABS: NT Pro B Type Natriuretic Pept 200 pg/mL (0-125); Procalcitonin 0.27 ng/mL (0-0.5)
[2020-06-24 06:19] LABS: Alanine Aminotransferase 133 U/L (0-33); Alkaline Phosphatase 212 IU/L (35-105); Anion Gap 17.4 (5-19); Aspartate Amino Transferase 131 U/L (0-32); Blood Urea Nitrogen 20 mg/dL (8-23); C Reactive Protein 183.6 mg/L (0.0-4.9); Calcium 8.5 mg/dL (8.5-10.5); Carbon Dioxide 28 mmol/L (22-29); Chloride 96 mmol/L (98-107); Creatine Phosphokinase 43 U/L (26-192); Globulin 2.6 g/dL (1.3-4.6); Glucose 150 mg/dL (65-115); Lactate Dehydrogenase 763 U/L (135-214); Osmolality Calculated 289 mOsm/kg (285-295); Potassium 4.4 mmol/L (3.5-5.1); Sodium 137 mmol/L (136-145); Total Bilirubin 2.1 mg/dL (0.15-1.2); Total Protein 5.6 g/dL (6.6-8.7)
--- NOTE | 2020-06-24 06:24 | NUR.SHIFT ---
Shift Assessment patient had a good night, currently in good sprits and less lethargic while playing on her cell phone. She tolerated Bipap throughout the night with the help of xanax. ABG this morning showed PO2=51, so SEALS ENGRAVER kept her on Bipap at FiO2 of 90% and EPAP increased to 12. Diarrhea seems to have resolved for now. Discussed all this new finding with both patient and her daughter Vanesa this morning.
[2020-06-24 06:38] LABS: Ferritin 2448 ng/mL (15-150)
[2020-06-24] MEDS: potassium chloride ER 10 mEq Tablet 40 MEQ PO (08:45)
[2020-06-24] MEDS: ALPRAZolam 0.25 mg Tablet 0.5 MG PO ×2 (08:45→13:48)
[2020-06-24] MEDS: pantoprazole DR 40 mg Tablet PO (08:45)
[2020-06-24] MEDS: loperamide 2 mg Capsule PO ×2 (08:46→13:51)
[2020-06-24] MEDS: morphine 4 mg/mL SDV 1 mL 1 MG IVP ×2 (08:46→13:45)
[2020-06-24] MEDS: apixaban 5 mg Tablet PO ×2 (08:48→13:50)
[2020-06-24] MEDS: zinc gluconate 50 mg Tablet PO (08:48)
[2020-06-24] MEDS: benzonatate 100 mg Capsule PO ×3 (08:48→22:33)
[2020-06-24] MEDS: ascorbic acid 500 mg Tablet 1000 MG PO ×2 (08:48→13:49)
[2020-06-24] MEDS: budesonide 0.5 mg/2 mL Neb INHALATION ×2 (08:53→20:11)
--- NOTE | 2020-06-24 13:24 | PC.NURSE ---
PHYSICAL THERAPY HELPED ME TO BATH PATIENT TO LIMIT HER STRESS AND RECOVERY NEEDS. SHE MAINTAINED SATS OF 88 TO 93 ON BIPAP. SHE HAD A SMALL YELLOW STOOL AT 0730 THAT WAS ALSO CLEANED UP. DISCUSSED WITH JOSSIE HER DAUGHTER THAT SOME OF HER LABS HAD MADE CHANGES OR EVEN DOUBLED AND THAT THE DOCTOR WOULD HAVE TO EXPLAIN THE MEANING OR NEG ISSUE THAT THOSE NUMBERS WOULD INDICATE. AKOSUA HERSELF IS INQUIZATIVE, AND TRYING HER BEST TO EAT AND STAY CALM AND POSITIVE. DR HARE TO CALL JOSSIE THIS AFTERNOON. PATIENT HAS BRUSHED HER TEETH TWICE TODAY HER TONGUE HAS WHITE AND THE PAPILLARY SURFACE DRY. PLAN TO LET HER HAVE A BREAK FROM THE MASK AND PRONE HER IN AN HOUR ORSO ON HHF THEN RETURN TO BIPAP AFTER DINNER.
[2020-06-24] MEDS: vancomycin 1,500 MG/300 ML PIGGYBACK 200 MG IV (13:34)
[2020-06-24] MEDS: dexamethasone 4 mg/mL INJ 6 MG IVP (13:35)
--- NOTE | 2020-06-24 13:40 | PM.PN ---
Subjective Subjective: Interval history: No acute events overnight. On examination patient sitting in bed on high flow. Has been on BiPAP overnight. She states she is feeling little better than yesterday. States her energy levels are better than yesterday. Seems anxious and has questions regarding her health. All the questions were answered. Denies any nausea, vomiting, headache. States appetite is fair. Working well on protein shakes. States has not worked well with incentive spirometry and flutter valve today as she was mostly on BiPAP. Vitals/I&O/Wt Last Vital Signs Temp 98 F 06/24/20 08:00 Pulse 88 06/24/20 13:10 Resp 24 H 06/24/20 13:10 BP 101/58 06/24/20 12:00 Pulse Ox 90 06/24/20 13:10 06/23/20 06/24/20 06/24/20 22:59 06:59 14:59 Intake Total 350 / 500 150 / 650 430 / 430 Output Total 2100 / 2100 750 / 2850 1000 / 1000 Balance -1750 / -1600 -600 / -2200 -570 / -570 Weight last 48 hrs Weight 123.831 kg Physical Exam Narrative: EXAM NARRATIVE: General: No acute distress, AO x3, jovial HEENT: PERRLA, pupils bilaterally equal and reactive Chest: Normal vesicular breath sounds, generalized rhonchi all over the lung perry, more in the right and left, equal good air entry bilaterally CVS: S1-S2 regular, no murmurs, no tachycardia, no gallops, no rubs Abdomen: Soft, nontender, no organomegaly, bowel sounds present Neuro: No focal deficits, no facial deformity, AO x3, power 5/5 in all limbs Urinary Catheter Management^: Aburto Latex Free: Cath Placed During This Visit: yes Reason for Continuing Indwelling Catheter: Accurate Measurement of Urinary Output in Critically Ill Patients Urinary Catheter Date of Insertion: 06/18/20 Urinary Catheter Time of Insertion: 10: Data : 06/24/20 04:00 06/24/20 04:00 Micro: Microbiology 06/24/20 12:30 Legionella Urinary Antigen - Final Urine Catheterized 06/24/20 12:30 Bacterial Antigens - Final Urine,Clean Catch A&P Assessment and plan (1) Acute respiratory failure with hypoxia: Status: Acute (2) Pneumonia due to COVID-19 virus: Status: Acute (3) Secondary bacterial pneumonia: Status: Acute (4) Atrial fibrillation with RVR: Status: Acute (5) Diarrhea: Status: Acute Additional A&P Information ARDS/hypoxic respiratory failure due to COVID-19 pneumonia: Wean off oxygen keeping saturation over 90%. She has finished course of remdesivir and also received 2 units of convalescent plasma during this admission. Continue with IV Decadron. Vitamin C, zinc. Budesonide twice daily, DuoNebs every 4 hours as patient is on high flow. Continue with Eliquis 5 mg twice daily today. Most likely patient will require 14-day course. Low chances of bacterial pneumonia for now. Procalcitonin negative, MRSA negative, bacterial antigen negative. Patient had received a course of vancomycin, azithromycin and Zosyn for around 6 days. Because patient is worsening and still requiring high amount of oxygen we will broaden the antibiotic coverage with vancomycin and Primaxin for now. We will recheck for urine Legionella, bacterial antigen and sputum culture. We will plan to do a CT scan of her chest for reimaging but given patient requiring high amount of oxygen we will wait for now and continue with aggressive pulmonary toilet and self proning. Echocardiogram done earlier in the admission shows grossly normal LV function with grade 1 diastolic dysfunction. Chest imaging reviewed. Overall patient 8.9 L negative. Because patient is in ARDS we will try to keep her as negative and dry as possible. BMP stable. Patient is looking very dry as well because of poor oral intake being on BiPAP. For now we will hold further diuresis. Daily weights. Input output charting. Continue to monitor chronic inflammatory markers including CRP, ferritin, LDH, fibrinogen, D-dimer. Some of the inflammatory markers worsening today. Transaminitis: Most likely secondary to worsening COVID-19 pneumonia ARDS. We will continue with supportive therapy. Continue to monitor liver numbers daily. Diarrhea: Most likely secondary to viral illness. C. difficile negative. Start patient on Lomotil as needed. Atrial fibrillation: Paroxysmal: Currently in sinus rhythm. Continue with Cardizem 90 mg every 6 hours, metoprolol as needed. Anticoagulation with full dose Lovenox as above. Full code. Cardiac diet. Eliquis therapy DVT prophylaxis as well PT evaluation. Plan for the day: Continue aggressive pulmonary toilet with incentive spirometry, flutter valve. Continue oxygen supplementation keeping saturation around 88 to 90% as patient remains high flow to BiPAP dependent. We will continue to monitor for multiorgan dysfunction. Pulmonology consultation. Broadening antibiotic coverage today because patient continues to remain critically sick. Redoing infectious work-up. Goals of care discussion: Discussed with the patient and her daughter Ms. Alexis regarding CODE STATUS and goals of care. We discussed that patient is on high amount of oxygen supplementation to maintain her saturation at present. Discussed that patient is critically ill and going forward might require mechanical ventilation. Patient states that she is very scared of being on a ventilator. All the questions were answered. She was reassured. I discussed with her that chances of her coming off the ventilator if she went on one would be 50-50 which is a good chance though she is at a higher risk of being ventilator dependent because of advanced age and patient deteriorating or requiring high amount of oxygen late in her disease process while thing going in a fever is that she does not have any comorbidities. Patient stated if needed she is okay with ventilator support for some time. Attestations Medical Necessity Statement*: Patient requires further hospitalization for management of ARDS due to COVID-19 pneumonia, worsening inflammatory markers, worsening transaminitis, high flow to BiPAP dependent. Critical Care Time: Critical Care Time (min): 70 Coding Level of Care Code Acute Community Mental Health Social Worker for yonatan Foley Diagnoses Acute respiratory failure with hypoxia J96.01 Pneumonia due to COVID-19 virus U07.1; J12.89 Secondary bacterial pneumonia J15.9 Atrial fibrillation with RVR I48.91 Diarrhea R19.7
--- NOTE | 2020-06-24 15:13 | P.CONIM_ITS ---
Providers/Reason For Consult Consulting Physican/Specialty*: Richmond Espinal M.D / Pulmonary Critical Care Reason for Consult*: Worsening hypoxia and requiring higher FiO2 in patient with COVID-19 pneumonia Attending Physician: Bj Porras MD Primary Care Provider: NAVEEN Fisher History of Present Illness History of Present Illness Brook Malin is a 74 year old female with no significant PMH except chronic smoking for over 40 years quit 10 years ago presented to [facility] due to cough, fevers, shortness of breath, fatigue, malaise on 06/16/2020 admitted to viral ICU for acute hypoxemic respiratory failure secondary to COVID-19 pneumonia complicated by A. fib with RVR and requiring high flow 65 L 80%. Today patient seen in viral ICU on BiPAP 13/03 - 70% FiO2 saturating 88%. No acute events overnight. Patient is in mild respiratory distress but says that she is feeling slightly better than yesterday -Otherwise denied any other complaints Review of Systems General: Reports: 10 or more systems reviewed and unremarkable except in HPI and below Meds/Allergies Home Medications and Allergies Home Medications Medication Instructions Recorded Confirmed Last Taken Type azithromycin 250 mg tablet See Rx Instructions PO .COMPLEX #6 06/15/20 06/16/20 06/16/20 Rx tab cephalexin [Keflex] 500 mg PO Q6H 7 Days #28 cap 06/16/20 Unknown Rx [id number] 1 tab PO DAILY 06/16/20 06/16/20 06/15/20 History [Multi For Her] Allergies Allergy/AdvReac Type Severity Reaction Status Date / Time No Known Allergies Allergy Verified 06/16/20 13:43 Current Medications Current Medications Generic Name Dose Route Start Last Admin Trade Name Freq PRN Reason Stop Dose Admin Acetaminophen 650 mg 06/16/20 18:46 06/19/20 08:08 Acetaminophen 325 Mg Tablet PO 650 mg Q6H PRN Administration Mild/Mod Pain Or Temp >/= 101 Albuterol Sulfate 2 puff 06/16/20 18:46 06/23/20 09:32 Albuterol 8 Gm Mdi INHALATION 2 puff Q4H.RESPIRATORY PRN Administration SHORTNESS OF BREATH Albuterol/Ipratropium 3 ml 06/23/20 12:00 06/24/20 12:26 Ipratropium-Albuterol 3 Ml Neb INHALATION 3 ml Q4H.RESPIRATORY LIBRADO Administration Alprazolam 0.5 mg 06/23/20 19:47 06/24/20 13:48 Alprazolam 0.25 Mg Tablet PO 0.5 mg TID PRN Administration AIR HUNGER Apixaban 5 mg 06/21/20 18:00 06/24/20 13:50 Apixaban 5 Mg Tablet PO 5 mg BID LIBRADO Administration Ascorbic Acid 1,000 mg 06/16/20 19:30 06/24/20 13:49 Ascorbic Acid 500 Mg Tablet PO 1,000 mg BID LIBRADO Administration Benzonatate 100 mg 06/20/20 15:00 06/24/20 13:49 Benzonatate 100 Mg Capsule PO 100 mg TID LIBRADO Administration Budesonide 0.5 mg 06/23/20 18:00 06/24/20 08:53 Budesonide 0.5 Mg/2 Ml Neb INHALATION 0.5 mg BID LIBRADO Administration Dexamethasone 6 mg 06/17/20 16:00 06/24/20 13:35 Dexamethasone 4 Mg/Ml Inj IVP 6 mg Q24H LIBRADO Administration Diltiazem HCl 90 mg 06/19/20 11:00 06/24/20 14:56 Diltiazem 60 Mg Tablet PO 90 mg Q6H LIBRADO Administration Furosemide 40 mg 06/24/20 06:00 06/24/20 13:36 Furosemide 10 Mg/Ml Sdv 4ml IVP 40 mg Q12H LIBRADO Administration Guaifenesin 400 mg 06/18/20 15:57 06/23/20 10:07 Guaifenesin 100 Mg/5 Ml Udc 10 Ml PO 400 mg Q4H PRN Administration COUGH Vancomycin/PEG/NADA/Lysine/Water 1,500 mg in 300 mls @ 200 mls/hr 06/24/20 12:30 06/24/20 13:34 Vancocin IV 200 mls/hr Q18H LIBRADO Administration Imipenem/Cilastatin Sodium 500 100 mls @ 200 mls/hr 06/24/20 13:45 06/24/20 14:55 mg/ Sodium Chloride IV 200 mls/hr Q6H LIBRADO Administration Protocol Loperamide HCl 2 mg 06/22/20 11:50 06/24/20 13:51 Loperamide 2 Mg Capsule PO 2 mg QID PRN Administration DIARRHEA Metoprolol Tartrate 5 mg 06/18/20 10:04 06/19/20 17:02 Metoprolol Tartrate 1 Mg/1 Ml Sdv 5 Ml IV 5 mg Q4H PRN Administration FOR HR>120, afib, call before Morphine Sulfate 1 mg 06/23/20 19:47 06/24/20 13:45 Morphine 4 Mg/Ml Sdv 1 Ml IVP 1 mg Q4H PRN Administration SEVERE PAIN Pantoprazole Sodium 40 mg 06/17/20 09:00 06/24/20 08:[address] 40 Mg Tablet PO 40 mg DAILY LIBRADO Administration Potassium Chloride 40 meq 06/22/20 09:00 06/24/20 08:45 Potassium Chloride Er 10 Meq Tablet PO 40 meq DAILY LIBRADO Administration Zinc Gluconate 50 mg 06/17/20 09:00 06/24/20 08:48 Zinc Gluconate 50 Mg Tablet PO 50 mg DAILY LIBRADO Administration PFSH Acute PFSH: Medical History No pertinent past medical history Pneumonia due to 2019-nCoV Surgical History Hx of cholecystectomy Family History Mother Lung cancer Father CAD (coronary artery disease) Social History Smoking and tobacco status: former smoker Alcohol intake: never Substance/Drug Use: never Vitals/I&O/Wt Last Vital Signs Temp 98 F 06/24/20 08:00 Pulse 88 06/24/20 13:10 Resp 25 H 06/24/20 13:45 BP 101/58 06/24/20 12:00 Pulse Ox 90 06/24/20 13:10 06/24/20 06/24/20 06/24/20 06:59 14:59 22:59 Intake Total 150 / 650 430 / 430 Output Total 750 / 2850 1000 / 1000 Balance -600 / -2200 -570 / -570 Weight last 48 hrs Weight 273 lb Physical Exam Narrative: EXAM NARRATIVE: General: alert, NAD HEENT: conj clear, EOMI, PERRL, mmm, Neck: supple, no meningismus Heme: no cervical LAP Pulmonary: Bilateral diffuse crackles Cardiovascular: rrr, nl s1s2, no mrg Abdomen: soft, nt, nd, no r/g, bs+ Extremities: pulses +, no edema, no c/c : no CVA tenderness Skin: intact, no rash MSK: no back or neck pain Neurologic: grossly intact Urinary Catheter Management^: Aburto Latex Free: Cath Placed During This Visit: yes Reason for Continuing Indwelling Catheter: Accurate Measurement of Urinary Output in Critically Ill Patients Urinary Catheter Date of Insertion: 06/18/20 Urinary Catheter Time of Insertion: 10: Data Micro: Micro: Microbiology 06/24/20 12:30 Legionella Urinary Antigen - Final Urine Catheterize d 06/24/20 12:30 Bacterial Antigens - Final Urine,Clean Catch Other Data: Other data: Reviewed labs, imaging, other investigations [facility] A&P Assessment and plan (1) Acute respiratory failure with hypoxia: Status: Acute (2) Pneumonia due to COVID-19 virus: Status: Acute (3) Secondary bacterial pneumonia: Status: Acute (4) Atrial fibrillation with RVR: Status: Acute (5) Ex-smoker: Status: Acute (6) Acute respiratory distress syndrome (ARDS) due to 2019 novel coronavirus: Status: Acute #Acute hypoxic respiratory failure secondary to COVID-19 pneumonia #A. fib RVR -Currently on BiPAP 13/03 and FiO2 70% saturating 88% and switched to 60 L 90% -ABG today morning on 90% FiO2 7.5 0/41/51/30 2/89% -likely metabolic alkalosis -Last x-ray yesterday 06/23/2020: Worsening bilateral infiltrates-ARDS versus COVID-19 pneumonia versus CHF -CT 06/16/2020: No evidence of PE, multilobar peripheral GGO's, typical of COVID-19 pneumonia. Echo 06/17/2020: LV systolic function grossly normal. Regional wall motion abnormalities cannot be assessed because of poor visualization. Grade 1 contreras tolic dysfunction. -Afebrile T-max 99.3, leukocytosis 16.3, COVID-19 positive, worsening LFTs and worsening inflammatory markers -Urine bacterial antigens, urine Legionella antigen, recent MRSA nares, blood cultures-procalcitonin 0.27-all negative -CMP-normal electrolytes, controlled sugars, -A. fib RVR rate controlled with Cardizem 90 mg p.o every 6 hour and is on Eliquis 5 mg p.o. twice daily -DuoNeb every 4 scheduled and Pulmicort 0.5 mg twice daily scheduled and continue pulmonary toilet -Patient self proning. -Net -9.6 L since admission-hold Lasix for now as ABG suggestive of metabolic al kalosis possibly from dehydration -Completed remdesivir and plasma transfusions and currently on dexamethasone 6 mg every 24 hours -Overall patient's chest imaging, higher requirement of FiO2 together with worsening inflammatory markers, leukocytosis, LFTs-all seem secondary to worsening COVID-19 pneumonia. Patient received remdesivir and plasma transfusions as well. Currently plan is to continue dexamethasone. Patient is net -9 L and currently appears clinically dry so we are holding Lasix. At this point patient is getting all the supportive care that is needed for COVID-19 p neumonia and next step will be intubation and mechanical ventilatory support for her ARDS and give time for her to recover. I would recommend to add broader antibiotic coverage to cover for any new bacterial infections while waiting for work-up, and can DC antibiotics if work-up is negative. Thanks for the consult and involving taking care of this patient. Recommendations conveyed to hospitalist taking care of the patient Consult Attestations Medical Necessity Statement: Patient requires further hospitalization for management of ARDS due to COVID-19 pneumonia, worsening inflammatory markers, worsening transaminitis, high flow to BiPAP dependent. Time Spent in Patient Care: Greater than 35 minutes (>than 50% of time spent in counselling and/or direct pt care on unit) . Coding Level of Care Code New Pt Acute Exercise Equipment Specialist for g Fwdillon Patient Type New History Comprehensive Exam Comprehensive Medical Decision Making High Complexity Diagnoses Acute respiratory failure with hypoxia J96.01 Pneumonia due to COVID-19 virus U07.1; J12.89 Secondary bacterial pneumonia J15.9 Atrial fibrillation with RVR I48.91 Ex-smoker Z87.891 Acute respiratory distress syndrome (ARDS) due to 2019 novel coronavirus U07.1; J80 Time Spent (min) 45
--- NOTE | 2020-06-24 17:11 | PC.NURSE ---
patient asked to rest on bipap, she said her daughter had permission to visit today. Brook rested 60 min and then her daughter Vaensa arrived at 1700. dr edwards informed the charge nurse that she is limited to an hour visit to keep the other family members safer. she is wearing full ppe.
[2020-06-25] VITALS (33 sets, daily range): BP systolic 90–146; BP diastolic 51–86; PULSE 70–99; RESP 14–30; TEMP 36.6–37.3; O2SAT 84–95
[2020-06-25] MEDS: ipratropium-albuterol 3 mL Neb INHALATION ×7 (00:26→23:29)
--- NOTE | 2020-06-25 01:14 | PC.NURSE ---
1929 Assessment: Received patient from dayshift resting in bed OX3, pulse ox in 80 while on HHF, but pateint is able to speak in completely sentences without appearing SOB or be in distress. Notified MUD TEMPERER who will shortly place her on Bipap for the night. BP and HR unremarkable. Will continue to monitor closely throughout the night.
[2020-06-25 03:21] LABS: ABG PCO2 45.4 mmHg (35-45); ABG PH Result 7.49 (7.35-7.45); Alveolar-Arterial Oxygen Gradi 67.5 mmHg (5-10); Arterial Blood Gas Hematocrit 38.8 % (37-47); Base Excess ABG 9.8 mmol/L (-2.0-2.0); Blood Gas Allen Test Pos; Blood Gas Sample Site Radial, right; Blood Gas Sample Type Arterial; Carboxyhemoglobin 0.9 %THgb (0.4-20.1); HCO3 ABG 34.4 mmol/L (22-26); HGB O2 Sat 93.8 % (95-100); Ionized Calcium Level - ABG 1.2 mmol/L (1.1-1.4); Methemoglobin 0.5 % (0.4-1.5); Oxygen Device BIPAP; Oxygen Saturation ABG 95.1; PO2 ABG 71.5 mmHg (80.0-100.0); Total Hemoglobin 12.7 g/dL (12-16)
[2020-06-25] MEDS: dilTIAZem 60 mg Tablet 90 MG PO ×4 (04:32→23:35)
[2020-06-25 04:40] LABS: Basophils # 0.1 10^3/uL (0.0-0.1); Basophils % 0.4 %; Hematocrit 38.3 % (37.0-47.0); Hemoglobin 12.6 g/dL (11.5-15.3); Lymphocytes # 0.5 10^3/uL (0.8-4.8); Lymphocytes % 1.8 %; Mean Corpuscular HGB Conc 32.9 g/dL (30.0-36.0); Mean Corpuscular Hemoglobin 28.7 pg (28.0-34.0); Mean Corpuscular Volume 87.2 fL (81-99); Mean Platelet Volume 10.2 fL (7.4-10.4); Monocytes # 0.6 10^3/uL (0.2-0.9); Monocytes % 2.4 %; Neutrophils # 22.52 10^3/uL (1.8-7.7); Neutrophils % 91.5 %; Nucleated Red Blood Cells % 0 %; Platelet Count 249 10^3/cmm (130-400); Red Blood Count 4.39 10^6/uL (4.1-5.3); Red Cell Distribution Width 14.4 % (12.1-15.1); White Blood Count 24.6 10^3/uL (4.0-10.0)
[2020-06-25 05:08] LABS: NT Pro B Type Natriuretic Pept 196 pg/mL (0-125); Procalcitonin 0.16 ng/mL (0-0.5)
[2020-06-25 05:12] LABS: Fibrinogen 569 mg/dL (174-498)
[2020-06-25 05:22] LABS: Alanine Aminotransferase 97 U/L (0-33); Albumin Level 2.8 g/dL (3.5-5.2); Alkaline Phosphatase 213 IU/L (35-105); Anion Gap 14.5 (5-19); Aspartate Amino Transferase 51 U/L (0-32); Blood Urea Nitrogen 25 mg/dL (8-23); C Reactive Protein 84.9 mg/L (0.0-4.9); Calcium 8.9 mg/dL (8.5-10.5); Carbon Dioxide 31 mmol/L (22-29); Chloride 96 mmol/L (98-107); Creatine Phosphokinase 27 U/L (26-192); Globulin 3.1 g/dL (1.3-4.6); Glucose 146 mg/dL (65-115); Lactate Dehydrogenase 556 U/L (135-214); Osmolality Calculated 291 mOsm/kg (285-295); Potassium 4.5 mmol/L (3.5-5.1); Sodium 137 mmol/L (136-145); Total Bilirubin 0.4 mg/dL (0.15-1.2); Total Protein 5.9 g/dL (6.6-8.7)
[2020-06-25] MEDS: vancomycin 1,500 MG/300 ML PIGGYBACK 200 MG IV ×2 (05:37→23:35)
[2020-06-25 05:58] LABS: Ferritin 1350 ng/mL (15-150)
--- NOTE | 2020-06-25 06:00 | XRR_ITS ---
PROCEDURE INFORMATION: Exam: XR Chest, 1 View Exam date and time: 06/25/2020 5:12 AM Age: 74 years old Clinical indication: Condition or disease; Other: Covid TECHNIQUE: Imaging protocol: XR of the chest Views: 1 view. COMPARISON: CR XR chest 1V portable [id number] 06/23/2020 6:06 AM FINDINGS: There are multiple overlying leads/wires, limiting assessment . There is ill-defined opacification in each lung, moderate to prominent on right and moderate on left, may represent infiltrates (perhaps from COVID-19), edema/congestion, or a combination thereof. Findings appear decreased from prior study. No significant obscuration of the lateral costophrenic angles is demonstrated. There is scattered pulmonary scarring bilaterally. Visualized cardiac silhouette size appears within normal limits. Thoracic aorta is unfolded. XR/XR chest 1V portable [id number] IMPRESSION: There is ill-defined opacification in each lung, moderate to prominent on right and moderate on left, may represent infiltrates (perhaps from COVID-19), edema/congestion, or a combination thereof. Findings appear decreased from prior study.
--- NOTE | 2020-06-25 06:05 | NUR.SHIFT ---
Pt had a restful and uneventful night. Tolerated Bipap throughout the night maintaining O2 sats above 90%. Denies pain or any other complaints this morning.
[2020-06-25] MEDS: budesonide 0.5 mg/2 mL Neb INHALATION ×2 (08:12→19:47)
[2020-06-25] MEDS: apixaban 5 mg Tablet PO ×2 (08:59→18:42)
[2020-06-25] MEDS: pantoprazole DR 40 mg Tablet PO (08:59)
[2020-06-25] MEDS: zinc gluconate 50 mg Tablet PO (08:59)
[2020-06-25] MEDS: ascorbic acid 500 mg Tablet 1000 MG PO ×2 (08:59→18:42)
[2020-06-25] MEDS: benzonatate 100 mg Capsule PO ×3 (08:59→20:09)
--- NOTE | 2020-06-25 09:59 | PC.SOCIAL ---
IMM Updated Updated pt's family, via phone, Pg 2 IMM. No questions voiced. Signed, dated, & timed a copy to be scanned into chart.
[2020-06-25] MEDS: dexamethasone 4 mg/mL INJ 6 MG IVP (16:17)
[2020-06-25] MEDS: nystatin 100,000 unit/mL UDC 5 mL 500000 UNIT PO ×2 (16:17→20:09)
--- NOTE | 2020-06-25 16:51 | P.PN_ITS ---
Subjective Subjective: Interval history: No documented acute events overnight. Denies any nausea, vomiting, headache, dizziness. Lying comfortably in bed currently on heated high flow 45 L 90%. During my talk was able to come down to 80% maintaining saturation around 80 to 89%. Energy levels are appropriate. Able to prone and semiprone in bed. Continues to work well with I-S and Acapella. Appetite has remained moderate. Vitals/I&O/Wt Last Vital Signs Temp 98.4 F 06/25/20 13:09 Pulse 85 06/25/20 15:44 Resp 18 06/25/20 15:44 BP 137/70 06/25/20 15:00 Pulse Ox 89 L 06/25/20 15:44 06/25/20 06/25/20 06/25/20 06:59 14:59 22:59 Intake Total 250 / 1480 400 / 400 Output Total 600 / 3550 350 / 350 Balance -350 / -2070 50 / 50 Weight last 48 hrs Weight 123.831 kg Physical Exam Narrative: EXAM NARRATIVE: General: No acute distress, AO x3, jovial HEENT: PERRLA, pupils bilaterally equal and reactive Chest: Normal vesicular breath sounds, generalized rhonchi all over the lung perry, more in the right and left, equal good air entry bilaterally CVS: S1-S2 regular, no murmurs, no tachycardia, no gallops, no rubs Abdomen: Soft, nontender, no organomegaly, bowel sounds present Neuro: No focal deficits, no facial deformity, AO x3, power 5/5 in all limbs Urinary Catheter Management^: Aburto Latex Free: Cath Placed During This Visit: yes Reason for Continuing Indwelling Catheter: Accurate Measurement of Urinary Output in Critically Ill Patients Urinary Catheter Date of Insertion: 06/18/20 Urinary Catheter Time of Insertion: 10: Data : 06/25/20 04:00 06/25/20 04:00 Micro: Microbiology 06/24/20 12:30 Legionella Urinary Antigen - Final Urine Catheterized 06/24/20 12:30 Bacterial Antigens - Final Urine,Clean Catch A&P Assessment and plan (1) Acute respiratory failure with hypoxia: Status: Acute (2) Pneumonia due to COVID-19 virus: Status: Acute (3) Secondary bacterial pneumonia: Status: Acute (4) Atrial fibrillation with RVR: Status: Acute (5) Diarrhea: Status: Acute Additional A&P Information ARDS/hypoxic respiratory failure due to COVID-19 pneumonia: Wean off oxygen keeping saturation over 90%. She has finished course of remdesivir and also received 2 units of convalescent plasma during this admission. Continue with IV Decadron. Vitamin C, zinc. Budesonide twice daily, DuoNebs every 4 hours as patient is on high flow. Continue with Eliquis 5 mg twice daily today. Most likely patient will require 14-day course. Because patient is critically ill has broaden the coverage back to vancomycin, and Primaxin. Repeat urine Legionella and bacterial antigen results negative. Sputum culture still to be collected. We will plan to do a CT scan of her chest for reimaging but given patient requi ring high amount of oxygen we will wait for now and continue with aggressive pulmonary toilet and self proning. Echocardiogram done earlier in the admission shows grossly normal LV function with grade 1 diastolic dysfunction. Chest imaging reviewed. Given ARDS we will try to keep patient as negative as possible. Patient is overly 11 L negative since admission. For now continue to hold off on Lasix. Daily weights. Input output charting. Continue to monitor chronic inflammatory markers including CRP, ferritin, LDH, fibrinogen, D-dimer. Some of the inflammatory markers worsening today. We will start patient on nystatin swish and swallow, Diflucan for 7-day course because of oral thrush. Start patient on Flonase. Transaminitis: Most likely secondary to worsening COVID-19 pneumonia ARDS. We will continue with supportive therapy. Continue to monitor liver numbers daily. Diarrhea: Most likely secondary to viral illness. C. difficile negative. Start patient on Lomotil as needed. Atrial fibrillation: Paroxysmal: Currently in sinus rhythm. Continue with Cardizem 90 mg every 6 hours, metoprolol as needed. Anticoagulation with full dose Lovenox as above. Full code. Cardiac diet. Eliquis therapy DVT prophylaxis as well PT evaluation. Plan for the day: Continue aggressive pulmonary toilet with incentive spirometry, flutter valve. Continue oxygen supplementation keeping saturation around 88 to 90% as patient remains high flow to BiPAP dependent. Follow-up w ith infectious work-up. Continue with broad-spectrum antibiotics. Start patient on nystatin swish and swallow and oral Diflucan 100 for 5 more days. Flonase. Goals of care discussion: Discussed with the patient and her daughter Ms. Alexis regarding CODE STATUS and goals of care. We discussed that patient is on high amount of oxygen supplementation to maintain her saturation at present. Discussed that patient is critically ill and going forward might require mechanical ventilation. Patient states that she is very scared of being on a ventilator. All the questions were answered. She was reassured. I discussed with her that chances of her coming off the ventilator if she went on one would be 50-50 which is a good chance though she is at a higher risk of being ventilator dependent because of advanced age and patient deteriorating or requiring high amount of oxygen late in her disease process while thing going in a fever is that she does not have any comorbidities. Patient stated if needed she is okay with ventilator support for some time. Attestations Medical Necessity Statement*: Patient requires further hospitalization for management of ARDS because of COVID-19 pneumonia. Patient is BiPAP to high flow dependent at present. Time Spent in Patient Care: Greater than 35 minutes (>than 50% of time spent in counselling and/or direct pt care on unit) . Coding Level of Care Code Acute Taxation Consultant for Nacho Foley Diagnoses Acute respiratory failure with hypoxia J96.01 Pneumonia due to COVID-19 virus U07.1; J12.89 Secondary bacterial pneumonia J15.9 Atrial fibrillation with RVR I48.91 Diarrhea R19.7
[2020-06-25] MEDS: fluconazole 100 mg Tablet PO (18:41)
[2020-06-25] MEDS: fluticasone nasal spray 16gm Btl 2 SPRAY NASAL (18:42)
[2020-06-25] MEDS: ALPRAZolam 0.25 mg Tablet 0.5 MG PO (19:33)
--- NOTE | 2020-06-25 20:23 | PC.NURSE ---
Assessment Received pt in bed AAOx3, denies SOB even as her sats showing in low 80s while on HHF. Placed pt in proned position which seems to help with her oxygenation. Will more likely placed her Bipap soon once xanax is administered, to help with her Bipap tolerance.
[2020-06-26] VITALS (37 sets, daily range): BP systolic 99–134; BP diastolic 56–95; PULSE 66–100; RESP 18–35; TEMP 36.2–36.9; O2SAT 85–98
[2020-06-26] MEDS: ipratropium-albuterol 3 mL Neb INHALATION ×6 (03:10→23:34)
[2020-06-26] MEDS: dilTIAZem 60 mg Tablet 90 MG PO ×4 (04:16→22:07)
[2020-06-26 04:55] LABS: ABG PCO2 39.5 mmHg (35-45); ABG PH Result 7.53 (7.35-7.45); Arterial Blood Gas Hematocrit 41.3 % (37-47); Base Excess ABG 9.3 mmol/L (-2.0-2.0); Blood Gas Allen Test Pos; Blood Gas Sample Type Arterial; Carboxyhemoglobin 0.8 %THgb (0.4-20.1); HCO3 ABG 32.8 mmol/L (22-26); HGB O2 Sat 95.6 % (95-100); Ionized Calcium Level - ABG 1.2 mmol/L (1.1-1.4); Methemoglobin 0.9 % (0.4-1.5); Oxygen Saturation ABG 97.3; PO2 ABG 78.2 mmHg (80.0-100.0); Potassium Level - ABG 4.5 mmol/L (3.5-5.0); Total Hemoglobin 13.5 g/dL (12-16)
[2020-06-26 04:57] LABS: Alveolar-Arterial Oxygen Gradi 57.7 mmHg (5-10); Blood Gas Operator Identificat JB; Blood Gas Sample Site Radial, right; Oxygen Device HAG
[2020-06-26 05:21] LABS: Basophils # 0.1 10^3/uL (0.0-0.1); Basophils % 0.2 %; Hematocrit 37.3 % (37.0-47.0); Hemoglobin 12.3 g/dL (11.5-15.3); Lymphocytes # 0.4 10^3/uL (0.8-4.8); Lymphocytes % 1.9 %; Mean Corpuscular Hemoglobin 28.9 pg (28.0-34.0); Mean Corpuscular Volume 87.6 fL (81-99); Mean Platelet Volume 10.6 fL (7.4-10.4); Monocytes # 0.6 10^3/uL (0.2-0.9); Monocytes % 2.8 %; Neutrophils # 20.03 10^3/uL (1.8-7.7); Neutrophils % 91.9 %; Nucleated Red Blood Cells % 0 %; Platelet Count 246 10^3/cmm (130-400); Red Blood Count 4.26 10^6/uL (4.1-5.3); Red Cell Distribution Width 14.6 % (12.1-15.1); White Blood Count 21.8 10^3/uL (4.0-10.0)
--- NOTE | 2020-06-26 06:00 | XRR_ITS ---
PROCEDURE INFORMATION: Exam: XR Chest, 1 View Exam date and time: 06/26/2020 12:00 AM Age: 74 years old Clinical indication: Dyspnea; Additional info: Covid TECHNIQUE: Imaging protocol: XR of the chest Views: 1 view. COMPARISON: CR XR chest 1V portable [id number] 06/25/2020 5:01 AM FINDINGS: Lungs: No significant change in the interstitial opacities in both lungs with basilar predominance. No interval consolidation. Pleural space: Still no obvious pleural fluid or suggestion of a pneumothorax. Heart/Mediastinum: Still no cardiomegaly. Vasculature: Continued aortic elongation. Bones/joints: No visible acute bony disease. Diffuse osteopenia still suspected. XR/XR chest 1V portable [id number] IMPRESSION: No significant change in the bilateral lung disease or the rest of the chest.
[2020-06-26 06:02] LABS: Chloride 98 mmol/L (98-107); NT Pro B Type Natriuretic Pept 305 pg/mL (0-125); Potassium 4.8 mmol/L (3.5-5.1); Sodium 138 mmol/L (136-145)
[2020-06-26 06:07] LABS: Fibrinogen 529 mg/dL (174-498)
[2020-06-26 06:17] LABS: D Dimer 7.66 ug/mIFEU (0-0.59)
[2020-06-26 06:18] LABS: Alanine Aminotransferase 65 U/L (0-33); Albumin Level 2.7 g/dL (3.5-5.2); Alkaline Phosphatase 185 IU/L (35-105); Anion Gap 15.8 (5-19); Aspartate Amino Transferase 30 U/L (0-32); Blood Urea Nitrogen 22 mg/dL (8-23); C Reactive Protein 49.2 mg/L (0.0-4.9); Calcium 8.7 mg/dL (8.5-10.5); Carbon Dioxide 29 mmol/L (22-29); Creatine Phosphokinase 30 U/L (26-192); Ferritin 809 ng/mL (15-150); Glucose 124 mg/dL (65-115); Lactate Dehydrogenase 535 U/L (135-214); Osmolality Calculated 291 mOsm/kg (285-295); Total Bilirubin 0.4 mg/dL (0.15-1.2); Total Protein 5.7 g/dL (6.6-8.7)
--- NOTE | 2020-06-26 06:41 | NUR.SHIFT ---
Pt had a restful uneventful night, tolerating bipap and SLPS able to decrease FiO2 to 80%. Denies any needs at this time.
[2020-06-26] MEDS: fluconazole 100 mg Tablet PO (08:43)
[2020-06-26] MEDS: benzonatate 100 mg Capsule PO ×3 (08:43→22:06)
[2020-06-26] MEDS: ascorbic acid 500 mg Tablet 1000 MG PO ×2 (08:43→17:02)
[2020-06-26] MEDS: fluticasone nasal spray 16gm Btl 2 SPRAY NASAL ×2 (08:43→17:02)
[2020-06-26] MEDS: apixaban 5 mg Tablet PO (08:43)
[2020-06-26] MEDS: zinc gluconate 50 mg Tablet PO (08:44)
[2020-06-26] MEDS: pantoprazole DR 40 mg Tablet PO (08:44)
[2020-06-26] MEDS: nystatin 100,000 unit/mL UDC 5 mL 500000 UNIT PO ×4 (08:44→22:06)
[2020-06-26] MEDS: budesonide 0.5 mg/2 mL Neb INHALATION ×2 (08:46→20:12)
--- NOTE | 2020-06-26 09:21 | USCV_ITS ---
Brook Malin Age: 74 Gender: F : 1945 Exam Date: 06/26/2020 16:25 Ordering Phys: Bj Porras MD Technologist: Noemi Persaud Exam Location: [facility] – [place] Indication: Re-check EF, worsening SOB, r/o myocarditis BP: 107 / 59 HR: 82 Rhythm: Sinus Technical Quality: Technically difficult study MEASUREMENTS (Male / Female) Normal Values 2D ECHO LV Diastolic Diameter PLAX 3.9 cm 4.2 - 5.9 / 3.9 - 5.3 cm LV Systolic Diameter PLAX 1.8 cm IVS Diastolic Thickness 1.1 cm 0.6 - 1.0 / 0.6 - 0.9 cm IVS Systolic Thickness 2.1 cm LVPW Diastolic Thickness 1.1 cm 0.6 - 1.0 / 0.6 - 0.9 cm LVPW Systolic Thickness 1.8 cm LV Ejection Fraction 2D Teich 85.5 % LV Ejection Fraction MOD 2C 76.7 % LV Ejection Fraction 2C AL 79.7 % M-MODE LV Diastolic Diameter MM 5.2 cm 4.2 - 5.9 / 3.9 - 5.3 cm LV Systolic Diameter MM 2.9 cm LV Ejection Fraction MM Teich 74.2 % IVS Diastolic Thickness MM 1.7 cm 0.6 - 1.0 / 0.6 - 0.9 cm IVS Systolic Thickness MM 2.0 cm LVPW Diastolic Thickness MM 1.2 cm 0.6 - 1.0 / 0.6 - 0.9 cm LVPW Systolic Thickness MM 1.6 cm FINDINGS Left Ventricle Normal left ventricular cavity size. Normal left ventricular systolic function. Left ventricular ejection fraction is estimated at 65 %. No regional wall motion abnormalities. Right Ventricle Right Atrium Left Atrium Mitral Valve Aortic Valve Tricuspid Valve Pulmonic Valve Pericardium Aorta CONCLUSIONS Limited study to assess left ventricle ejection fraction 1-Normal left ventricular cavity size. Normal left ventricular systolic function. Left ventricular ejection fraction is estimated at 65 %. No regional wall motion abnormalities. 2-No pericardial effusion 3-No significant change since the prior echocardiogram study of 06/17/2020. Carolee Dalton MD (Electronically Signed) Final Date: 26 June 2020 18:38 S
[2020-06-26] MEDS: enoxaparin 120 mg/0.8 mL Syringe SUBCUT ×2 (10:28→22:06)
[2020-06-26] MEDS: dexamethasone 4 mg/mL INJ 6 MG IVP (15:56)
--- NOTE | 2020-06-26 16:37 | PM.PN ---
Subjective Subjective: Interval history: No acute events overnight. She states her appetite is improving. She continues to remain jovial and participate well with proning, incentive spirometry and Acapella. Currently on examination she is in prone position saturating 97% on heated high flow. Overnight patient was on BiPAP. Has remained hemodynamically stable and afebrile. Vitals/I&O/Wt Last Vital Signs Temp 97.1 F L 06/26/20 04:00 Pulse 74 06/26/20 16:19 Resp 35 H 06/26/20 16:19 BP 119/62 06/26/20 14:00 Pulse Ox 94 06/26/20 16:19 06/26/20 06/26/20 06/26/20 06:59 14:59 22:59 Intake Total 880 / 2180 700 / 700 100 / 800 Output Total 900 / 2250 575 / 575 Balance -20 / -70 125 / 125 100 / 225 Physical Exam Narrative: EXAM NARRATIVE: General: No acute distress, AO x3, jovial HEENT: PERRLA, pupils bilaterally equal and reactive Chest: Normal vesicular breath sounds, generalized rhonchi all over the lung perry, more in the right and left, equal good air entry bilaterally CVS: S1-S2 regular, no murmurs, no tachycardia, no gallops, no rubs Abdomen: Soft, nontender, no organomegaly, bowel sounds present Neuro: No focal deficits, no facial deformity, AO x3, power 5/5 in all limbs Urinary Catheter Management^: Aburto Latex Free: Cath Placed During This Visit: yes Reason for Continuing Indwelling Catheter: Accurate Measurement of Urinary Output in Critically Ill Patients Urinary Catheter Date of Insertion: 06/18/20 Urinary Catheter Time of Insertion: 10: Data : 06/26/20 04:00 06/26/20 04:00 A&P Assessment and plan (1) Acute respiratory failure with hypoxia: Status: Acute (2) Pneumonia due to COVID-19 virus: Status: Acute (3) Secondary bacterial pneumonia: Status: Acute (4) Atrial fibrillation with RVR: Status: Acute (5) Diarrhea: Status: Acute Additional A&P Information ARDS/hypoxic respiratory failure due to COVID-19 pneumonia: Wean off oxygen keeping saturation over 90%. She has finished course of remdesivir and also received 2 units of convalescent plasma during this admission. Continue with IV Decadron. Vitamin C, zinc. Budesonide twice daily, DuoNebs every 4 hours as patient is on high flow. Since transitioning to Eliquis from full dose Lovenox patient's D-dimer continues to rise. Today 7.66. As patient remains high flow to BiPAP dependent will transition back to full dose Lovenox for now. Because patient is critically ill has broaden the coverage back to vancomycin, and Primaxin. Repeat urine Legionella and bacterial antigen results negative. Sputum culture still to be collected. We will plan to do a CT scan of her chest for reimaging but given patient requiring high amount of oxygen we will wait for now and continue with aggressive pulmonary toilet and self proning. Echocardiogram done earlier in the admission shows grossly normal LV function with grade 1 diastolic dysfunction. Chest imaging reviewed. Given ARDS we will try to keep patient as negative as possible. Patient is overly more than 11 L negative since admission. For now continue to hold off on Lasix. Daily weights. Input output charting. Continue to monitor chronic inflammatory markers including CRP, ferritin, LDH, fibrinogen, D-dimer. Some of the inflammatory markers worsening today. We will start patient on nystatin swish and swallow, Diflucan for 7-day course because of oral thrush. Start patient on Flonase. Transaminitis: Most likely secondary to worsening COVID-19 pneumonia ARDS. We will continue with supportive therapy. Continue to monitor liver numbers daily. Diarrhea: Most likely secondary to viral illness. C. difficile negative. Start patient on Lomotil as needed. Atrial fibrillation: Paroxysmal: Currently in sinus rhythm. Continue with Cardizem 90 mg every 6 hours, metoprolol as needed. Anticoagulation with full dose Lovenox as above. Full code. Cardiac diet. Eliquis therapy DVT prophylaxis as well PT evaluation. Plan for the day: Continue aggressive pulmonary toilet with incentive spirometry, flutter valve. Proning to semiprone position. Continue oxygen supplementation keeping saturation around 88 to 90% as patient remains high flow to BiPAP dependent. Continue with broad-spectrum antibiotics. Start back on full dose Lovenox from Eliquis. Continue with nystatin swish and swallow. Goals of care discussion: Discussed with the patient and her daughter Ms. Alexis regarding CODE STATUS and goals of care. We discussed that patient is on high amount of oxygen supplementation to maintain her saturation at present. Discussed that patient is critically ill and going forward might require mechanical ventilation. Patient states that she is very scared of being on a ventilator. All the questions were answered. She was reassured. I discussed with her that chances of her coming off the ventilator if she went on one would be 50-50 which is a good chance though she is at a higher risk of being ventilator dependent because of advanced age and patient deteriorating or requiring high amount of oxygen late in her disease process while thing going in a fever is that she does not have any comorbidities. Patient stated if needed she is okay with ventilator support for some time. Attestations Medical Necessity Statement*: Patient requires further hospitalization for management of ARDS secondary to COVID-19 pneumonia while patient remains high flow to BiPAP dependent. Time Spent in Patient Care: Greater than 35 minutes (>than 50% of time spent in counselling and/or direct pt care on unit). Coding Level of Care Code Acute Digital Media Strategist for [facility] Diagnoses Acute respiratory failure with hypoxia J96.01 Pneumonia due to COVID-19 virus U07.1; J12.89 Secondary bacterial pneumonia J15.9 Atrial fibrillation with RVR I48.91 Diarrhea R19.7
[2020-06-26] MEDS: vancomycin 1,500 MG/300 ML PIGGYBACK 200 MG IV (17:36)
--- NOTE | 2020-06-26 18:45 | PC.NURSE ---
Received report on patient from Enzo LOW. Assumed care at this time.
--- NOTE | 2020-06-26 19:42 | PC.NURSE ---
Patient placed in prone position. Sats dropped into the lower 70's during movement then returns back up to the upper 80's after she is settled.
--- NOTE | 2020-06-26 20:30 | PC.NURSE ---
Vanesa, the patients daughter called to get a update on her mother.
--- NOTE | 2020-06-26 22:18 | PC.NURSE ---
Patient repositioned to back. Oxygen saturations dropped and requested to go back on BiPap. Sats 72% and RT notified.
[2020-06-26] MEDS: ALPRAZolam 0.25 mg Tablet 0.5 MG PO (22:25)
--- NOTE | 2020-06-26 22:25 | PC.NURSE ---
Patient anxious about going back on the BiPap and she was given Xanax 0.5 mg po for anxiety.
[2020-06-27] VITALS (37 sets, daily range): BP systolic 105–185; BP diastolic 61–96; PULSE 55–102; RESP 16–37; TEMP 36.2–36.7; O2SAT 82–95
[2020-06-27] MEDS: ipratropium-albuterol 3 mL Neb INHALATION ×6 (03:20→23:53)
[2020-06-27 04:15] LABS: ABG PCO2 46.9 mmHg (35-45); ABG PH Result 7.45 (7.35-7.45); Alveolar-Arterial Oxygen Gradi 63.2 mmHg (5-10); Arterial Blood Gas Hematocrit 38.7 % (37-47); Base Excess ABG 7.2 mmol/L (-2.0-2.0); Blood Gas Operator Identificat JB; Blood Gas Sample Site Brachial, right; Blood Gas Sample Type Arterial; Carboxyhemoglobin 0.8 %THgb (0.4-20.1); HCO3 ABG 32.3 mmol/L (22-26); HGB O2 Sat 91.2 % (95-100); Ionized Calcium Level - ABG 1.3 mmol/L (1.1-1.4); Methemoglobin 0.6 % (0.4-1.5); Oxygen Device BIPAP; Oxygen Saturation ABG 92.5; PO2 ABG 64.9 mmHg (80.0-100.0); Potassium Level - ABG 4.4 mmol/L (3.5-5.0); Total Hemoglobin 12.6 g/dL (12-16)
[2020-06-27 04:16] LABS: Basophils # 0.1 10^3/uL (0.0-0.1); Basophils % 0.3 %; Hematocrit 37.1 % (37.0-47.0); Hemoglobin 12.1 g/dL (11.5-15.3); Lymphocytes # 0.6 10^3/uL (0.8-4.8); Lymphocytes % 2.5 %; Mean Corpuscular HGB Conc 32.6 g/dL (30.0-36.0); Mean Platelet Volume 10.7 fL (7.4-10.4); Monocytes # 0.6 10^3/uL (0.2-0.9); Monocytes % 2.6 %; Neutrophils # 21.23 10^3/uL (1.8-7.7); Neutrophils % 90.5 %; Nucleated Red Blood Cells % 0 %; Platelet Count 258 10^3/cmm (130-400); Red Blood Count 4.17 10^6/uL (4.1-5.3); Red Cell Distribution Width 14.8 % (12.1-15.1); White Blood Count 23.5 10^3/uL (4.0-10.0)
[2020-06-27 04:40] LABS: Fibrinogen 500 mg/dL (174-498)
[2020-06-27 04:43] LABS: D Dimer 3.65 ug/mIFEU (0-0.59)
[2020-06-27 04:52] LABS: Alanine Aminotransferase 50 U/L (0-33); Albumin Level 2.8 g/dL (3.5-5.2); Alkaline Phosphatase 189 IU/L (35-105); Anion Gap 14.7 (5-19); Aspartate Amino Transferase 28 U/L (0-32); Blood Urea Nitrogen 24 mg/dL (8-23); C Reactive Protein 44.5 mg/L (0.0-4.9); Calcium 8.7 mg/dL (8.5-10.5); Carbon Dioxide 29 mmol/L (22-29); Chloride 98 mmol/L (98-107); Creatine Phosphokinase 31 U/L (26-192); Ferritin 784 ng/mL (15-150); Globulin 2.9 g/dL (1.3-4.6); Glucose 132 mg/dL (65-115); Lactate Dehydrogenase 558 U/L (135-214); NT Pro B Type Natriuretic Pept 323 pg/mL (0-125); Osmolality Calculated 290 mOsm/kg (285-295); Potassium 4.7 mmol/L (3.5-5.1); Sodium 137 mmol/L (136-145); Total Bilirubin 0.3 mg/dL (0.15-1.2); Total Protein 5.7 g/dL (6.6-8.7)
[2020-06-27] MEDS: dilTIAZem 60 mg Tablet 90 MG PO ×4 (05:33→23:00)
--- NOTE | 2020-06-27 06:00 | XR_ITS ---
WS: [id number] PORTABLE CHEST HISTORY: covid COMPARISON: 06/26/2020 Findings granular opacifications over both lungs. No dense area of consolidation. No improvement. Bas ilar predominance is slight. No pleural effusion or pneumothorax. Cardiac size: Normal. Mediastinum/Aorta: Normal mediastinum. No osseous abnormality seen. XR/XR chest 1V portable [id number] IMPRESSION: Bilateral diffuse interstitial lung disease. Most consistent with pneumonitis.
[2020-06-27] MEDS: budesonide 0.5 mg/2 mL Neb INHALATION ×2 (08:48→20:36)
[2020-06-27] MEDS: zinc gluconate 50 mg Tablet PO (09:19)
[2020-06-27] MEDS: ascorbic acid 500 mg Tablet 1000 MG PO (09:19)
[2020-06-27] MEDS: fluticasone nasal spray 16gm Btl 2 SPRAY NASAL (09:20)
[2020-06-27] MEDS: pantoprazole DR 40 mg Tablet PO (09:20)
[2020-06-27] MEDS: nystatin 100,000 unit/mL UDC 5 mL 500000 UNIT PO ×3 (09:20→21:26)
[2020-06-27] MEDS: fluconazole 100 mg Tablet PO (09:20)
[2020-06-27] MEDS: enoxaparin 120 mg/0.8 mL Syringe SUBCUT ×2 (09:22→22:00)
[2020-06-27] MEDS: benzonatate 100 mg Capsule PO ×3 (11:39→21:27)
[2020-06-27] MEDS: ALPRAZolam 0.25 mg Tablet 0.5 MG PO ×2 (12:53→21:27)
[2020-06-27 13:14] LABS: Vancomycin Trough 10.8 ug/mL (10-15)
[2020-06-27] MEDS: vancomycin 1,500 MG/300 ML PIGGYBACK 200 MG IV (13:34)
--- NOTE | 2020-06-27 14:00 | PC.SOCIAL ---
IMM Not Updated Pg. 2 of IMM not updated, as patient not expected to discharge within the next 48hours.
[2020-06-27] MEDS: dexamethasone 4 mg/mL INJ 6 MG IVP (15:28)
[2020-06-27] MEDS: sodium chloride 0.9% 250 ML IV (16:42)
--- NOTE | 2020-06-27 16:42 | PM.PN ---
Subjective Subjective: Interval history: No acute events overnight. Saturating 91% on BiPAP 16 to L 95% FiO2 Plan is to prone her in the evening Patient is afebrile and labs revealed leukocytosis 20 3K Slightly better inflammatory markers Net -10 L since admission-patient looks clinically dry as well Vitals/I&O/Wt Last Vital Signs Temp 97.9 F 06/27/20 16:00 Pulse 88 06/27/20 16:28 Resp 20 H 06/27/20 16:28 BP 113/83 06/27/20 16:00 Pulse Ox 90 06/27/20 16:28 06/27/20 06/27/20 06/27/20 06:59 14:59 22:59 Intake Total 220 / 1800 1100 / 1100 400 / 1500 Output Total 1100 / 2275 Balance -880 / -475 1100 / 1100 400 / 1500 Physical Exam Narrative: EXAM NARRATIVE: General: alert, NAD HEENT: conj clear, EOMI, PERRL, mucous membranes dry Neck: supple, no meningismus Heme: no cervical LAP Pulmonary: Bilateral diffuse crackles Cardiovascular: rrr, nl s1s2, no mrg Abdomen: soft, nt, nd, no r/g, bs+ Extremities: pulses +, no edema, no c/c : no CVA tenderness Skin: Skin on extremities is dry, no rash MSK: no back or neck pain Neurologic: grossly intact Urinary Catheter Management^: Aburto Latex Free: Cath Placed During This Visit: yes Reason for Continuing Indwelling Catheter: Accurate Measurement of Urinary Output in Critically Ill Patients Urinary Catheter Date of Insertion: 06/18/20 Urinary Catheter Time of Insertion: 10:20 Data : 06/27/20 03:40 06/27/20 03:40 A&P Assessment and plan (1) Acute respiratory failure with hypoxia: Status: Acute (2) Pneumonia due to COVID-19 virus: Status: Acute (3) Secondary bacterial pneumonia: Status: Acute (4) Atrial fibrillation with RVR: Status: Acute (5) Ex-smoker: Status: Acute (6) Acute respiratory distress syndrome (ARDS) due to 2019 novel coronavirus: Status: Acute #Acute hypoxic respiratory failure secondary to COVID-19 pneumonia #A. fib RVR -Currently on BiPAP 16/12 and FiO2 95% saturating 90% and plan is to prone on high flow today evening -ABG today morning on 85% FiO2 7.4 5/46/65/30 2/92% -Chest x-ray 06/27/2020: Bilateral diffuse interstitial lung disease most consistent with pneumonitis-ARDS versus COVID-19 pneumonia -CT 06/16/2020: No evidence of PE, multilobar peripheral GGO's, typical of COVID-19 pneumonia. Echo 06/17/2020: LV systolic function grossly normal. Regional wall motion abnormalities cannot be assessed because of poor visualization. Grade 1 diastolic dysfunction. -Afebrile, leukocytosis 20 3K, COVID-19 positive, improving LFTs and inflammatory markers -Urine bacterial antigens, urine Legionella antigen, recent MRSA nares, blood cultures-procalcitonin 0.27-all negative -CMP-normal electrolytes, controlled sugars, -A. fib RVR rate controlled with Cardizem 90 mg p.o every 6 hour and is on Eliquis 5 mg p.o. twice daily -DuoNeb every 4 scheduled and Pulmicort 0.5 mg twice daily scheduled and continue pulmonary toilet -Patient self proning. -Net - 10 L since admission-hold Lasix and give to 50 mL NS bolus -Completed remdesivir and plasma transfusions and currently on dexamethasone 6 mg every 24 hours -Overall patient's chest imaging, higher requirement of FiO2 together with elevated inflammatory markers, leukocytosis, LFTs-all seem secondary to worsening COVID-19 pneumonia. Patient received remdesivir and plasma transfusions as well. Currently plan is to continue dexamethasone. Patient is net - 10 L and currently appears clinically dry so we are holding Lasix and give bolus to 50. At this point patient is getting all the supportive care that is needed for COVID-19 pneumonia and next step will be intubation and mechanical ventilatory support for her ARDS and give time for her to recover. I would recommend to add broader antibiotic coverage to cover for any new bacterial infections while waiting for work-up, and can DC antibiotics if work-up is negative. Thanks for the consult and involving taking care of this patient. Recommendations conveyed to hospitalist taking care of the patient Attestations Medical Necessity Statement*: Acute hypoxic respiratory failure secondary to COVID-19 pneumonia requiring high flow oxygen Time Spent in Patient Care: Greater than 35 minutes (>than 50% of time spent in counselling and/or direct pt care on unit). Critical Care Time: Critical Care Time (min): 45 Coding Level of Care Code Established Pt Acute Debt Collection Specialist for [facility] Patient Type Established History Comprehensive Exam Comprehensive Medical Decision Making Moderate Complexity Diagnoses Acute respiratory failure with hypoxia J96.01 Pneumonia due to COVID-19 virus U07.1; J12.89 Secondary bacterial pneumonia J15.9 Atrial fibrillation with RVR I48.91 Ex-smoker Z87.891 Acute respiratory distress syndrome (ARDS) due to 2019 novel coronavirus U07.1; J80 Time Spent (min) 45
--- NOTE | 2020-06-27 18:45 | PC.NURSE ---
Received bedside report on patient from Rhianna LOW. Assumed care at this time.
--- NOTE | 2020-06-27 20:30 | PM.PN ---
Subjective Subjective: Interval history: Self proning at the time of my visit. Doing a touch better. Denies headache, muscle ache. Denies nausea vomiting or diarrhea any longer . Denies chest pain. Vitals/I&O/Wt Last Vital Signs Temp 97.9 F 06/27/20 16:00 Pulse 79 06/27/20 18:19 Resp 33 H 06/27/20 18:01 BP 185/71 06/27/20 18:01 Pulse Ox 93 06/27/20 18:19 06/27/20 06/27/20 06/27/20 06:59 14:59 22:59 Intake Total 220 / 1800 1100 / 1100 400 / 1500 Output Total 1100 / 2275 1000 / 1000 Balance -880 / -475 1100 / 1100 -600 / 500 Physical Exam Const: COMMON NORMALS: no acute distress and patient oriented x3 HENMT: COMMON NORMALS: oropharynx normal Neck/C-Spine: COMMON NORMALS: no JVD Resp: COMMON NORMALS: normal respiratory effort AUSCULTATION: diminished lung sounds Cardio: COMMON NORMALS: no JVD, regular rhythm, S1 normal heart sound present, S2 normal heart sound present and No murmurs present (Cardio) RHYTHM: regular rhythm HEART SOUNDS: S1 normal heart sound present and S2 normal heart sound present GI: COMMON NORMALS: Normal to inspection, nondistended, normoactive bowel sounds present, Soft to palpation and non-tender PALPATION: Yes Soft to palpation Extremity: COMMON NORMALS: no joint enlargement and no pedal edema Neuro: COMMON NORMALS: patient oriented x3 and moves all extremities Skin: COMMON NORMALS: no rashes or lesions noted GENERAL SKIN EXAM: no rashes or lesions noted Urinary Catheter Management^: Aburto Latex Free: Cath Placed During This Visit: yes Reason for Continuing Indwelling Catheter: Accurate Measurement of Urinary Output in Critically Ill Patients Urinary Catheter Date of Insertion: 06/18/20 Urinary Catheter Time of Insertion: 10:20 Data : 06/27/20 03:40 06/27/20 03:40 A&P Assessment and plan (1) Acute respiratory failure with hypoxia: She was doing slightly better this afternoon, however, I see currently again FiO2 requirement has increased. She was self proning today and tolerated this well. Encouraged to continue as tolerating. D-dimer today is better. CRP is minimally better. Discussed condition with her daughter. She is definitely still in difficult situation where we may not yet know how well she may recover. Transient improvements in worsenings are to be expected, although overall her length of stay and persistent hypoxia has not been encouraging. Continue Decadron. Continue budesonide, DuoNeb. Continue Lovenox therapeutic dosing. Continue empiric antibiotics for possible superimposed bacterial pneumonia with Primaxin, vancomycin. Discussed with pulmonology. Pulmonary toilet. Flonase. -CTA chest: 1. No evidence for pulmonary embolus. 2. Multilobar peripheral ground-glass opacities, typical of COVID-19 pneumonia. This pattern can also be seen with influenza pneumonia and organizing pneumonia -cardiac echo shows: LV systolic function is grossly normal. Regional wall motion abnormalities can not be assessed because of poor visualization Grade 1 diastolic dysfunction Completed remdesivir. Completed convalescent plasma. Status: Acute (2) Pneumonia due to COVID-19 virus: Severe/life-threatening COVID-19 pneumonia as above. Status: Acute (3) Secondary bacterial pneumonia: Possible superimposed bacterial pneumonia as above. Status: Acute (4) Atrial fibrillation with RVR: Continue Cardizem. As needed metoprolol pushes. Lovenox. Status: Acute (5) Diarrhea: Resolved. Stool studies negative. Status: Acute Additional A&P Information Oropharyngeal candidiasis: nystatin swish and swallow, Diflucan for 7-day course because of oral thrush. Transaminitis: Improving. Most likely secondary to worsening COVID-19 pneumonia ARDS. Continue with supportive therapy. Continue to monitor liver numbers daily. Attestations Medical Necessity Statement*: Continue admission for assessment of management of severe/life-threatening COVID-19 infection, hypoxic respiratory failure, possible superimposed bacterial pneumonia. Coding Level of Care Code Acute Hyperbaric Technician for [facility] Diagnoses Acute respiratory failure with hypoxia J96.01 Pneumonia due to COVID-19 virus U07.1; J12.89 Secondary bacterial pneumonia J15.9 Atrial fibrillation with RVR I48.91 Diarrhea R19.7
[2020-06-28] VITALS (42 sets, daily range): BP systolic 101–152; BP diastolic 59–85; PULSE 63–89; RESP 18–38; TEMP 36.3–36.7; O2SAT 84–97; BMI 44.7
[2020-06-28] MEDS: ipratropium-albuterol 3 mL Neb INHALATION ×6 (04:13→23:30)
[2020-06-28 04:20] LABS: Basophils # 0.1 10^3/uL (0.0-0.1); Basophils % 0.3 %; Hemoglobin 13.3 g/dL (11.5-15.3); Lymphocytes # 0.6 10^3/uL (0.8-4.8); Lymphocytes % 2.4 %; Mean Corpuscular HGB Conc 32.4 g/dL (30.0-36.0); Mean Corpuscular Volume 89.3 fL (81-99); Mean Platelet Volume 10.3 fL (7.4-10.4); Monocytes # 0.5 10^3/uL (0.2-0.9); Monocytes % 2.2 %; Neutrophils # 21.84 10^3/uL (1.8-7.7); Nucleated Red Blood Cells % 0 %; Platelet Count 255 10^3/cmm (130-400); Red Blood Count 4.59 10^6/uL (4.1-5.3); Red Cell Distribution Width 14.6 % (12.1-15.1); White Blood Count 23.7 10^3/uL (4.0-10.0)
[2020-06-28 04:40] LABS: Fibrinogen 618 mg/dL (174-498)
[2020-06-28 04:48] LABS: D Dimer 2.72 ug/mIFEU (0-0.59)
[2020-06-28 04:58] LABS: C Reactive Protein 59.9 mg/L (0.0-4.9); Creatine Phosphokinase 41 U/L (26-192); NT Pro B Type Natriuretic Pept 229 pg/mL (0-125)
[2020-06-28 04:59] LABS: Alanine Aminotransferase 47 U/L (0-33); Albumin Level 2.9 g/dL (3.5-5.2); Alkaline Phosphatase 191 IU/L (35-105); Blood Urea Nitrogen 22 mg/dL (8-23); Calcium 8.9 mg/dL (8.5-10.5); Carbon Dioxide 28 mmol/L (22-29); Chloride 99 mmol/L (98-107); Globulin 3.3 g/dL (1.3-4.6); Glucose 128 mg/dL (65-115); Osmolality Calculated 295 mOsm/kg (285-295); Sodium 140 mmol/L (136-145); Total Bilirubin 0.5 mg/dL (0.15-1.2); Total Protein 6.2 g/dL (6.6-8.7)
[2020-06-28 05:16] LABS: Ferritin 1002 ng/mL (15-150); Lactate Dehydrogenase 627 U/L (135-214)
[2020-06-28 05:17] LABS: Aspartate Amino Transferase 37 U/L (0-32)
[2020-06-28] MEDS: dilTIAZem 60 mg Tablet 90 MG PO ×4 (05:52→22:55)
--- NOTE | 2020-06-28 06:00 | XRR_ITS ---
PROCEDURE INFORMATION: Exam: XR Chest, 1 View Exam date and time: 06/28/2020 6:52 AM Age: 74 years old Clinical indication: Shortness of breath; Additional info: Covid TECHNIQUE: Imaging protocol: XR of the chest Views: 1 view. COMPARISON: CR XR chest 1V portable [id number] 06/27/2020 3:31 AM FINDINGS: Lungs: Bilateral interstitial pulmonary infiltrates are present which are consistent with viral pneumonia. They have not significantly changed since previous study. Pleural space: Unremarkable. No pleural effusion. No pneumothorax. Heart/Mediastinum: Unremarkable. No cardiomegaly. Bones/joints: Unremarkable. XR/XR chest 1V portable [id number] IMPRESSION: No change in the bilateral interstitial pneumonia.
[2020-06-28] MEDS: vancomycin 1,500 MG/300 ML PIGGYBACK 200 MG IV (06:23)
[2020-06-28] MEDS: ALPRAZolam 0.25 mg Tablet 0.5 MG PO ×3 (06:42→21:25)
[2020-06-28] MEDS: budesonide 0.5 mg/2 mL Neb INHALATION ×2 (08:04→20:17)
[2020-06-28] MEDS: ascorbic acid 500 mg Tablet 1000 MG PO ×2 (08:24→17:13)
[2020-06-28] MEDS: pantoprazole DR 40 mg Tablet PO (08:24)
[2020-06-28] MEDS: nystatin 100,000 unit/mL UDC 5 mL 500000 UNIT PO ×4 (08:24→21:23)
[2020-06-28] MEDS: fluconazole 100 mg Tablet PO (08:24)
[2020-06-28] MEDS: zinc gluconate 50 mg Tablet PO (08:24)
[2020-06-28] MEDS: benzonatate 100 mg Capsule PO ×3 (08:24→21:23)
[2020-06-28] MEDS: fluticasone nasal spray 16gm Btl 2 SPRAY NASAL (08:35)
[2020-06-28] MEDS: enoxaparin 120 mg/0.8 mL Syringe SUBCUT ×2 (09:10→21:25)
--- NOTE | 2020-06-28 13:01 | PC.OT ---
OT note: Discussed with nursing, will hold pt at this time as she is on Bi-PAP and sleeping.
--- NOTE | 2020-06-28 14:45 | P.PN_ITS ---
Subjective Subjective: Interval history: She is not in pain or distress. When asked how she is doing replies I am here . Last night and overnight requiring 100% on BiPAP again. Appears yesterday improvement was somewhat transient. Discussed with her again about possibility of intubation. She understands that is a high risk procedure and not guaranteeing improvement in chances of recovery. She states that if there is no other choice to proceed. She otherwise denies any chest pain or pressure, breathing is comfortable with BiPAP. This morning her saturations actually touch better than last night. She denies headache, nausea vomiting or diarrhea. Vitals/I&O/Wt Last Vital Signs Temp 98.1 F 06/28/20 12:00 Pulse 84 06/28/20 14:00 Resp 32 H 06/28/20 14:00 BP 132/72 06/28/20 14:00 Pulse Ox 93 06/28/20 14:00 06/27/20 06/28/20 06/28/20 22:59 06:59 14:59 Intake Total 1110 / 2210 200 / 2410 1210 / 1210 Output Total 3100 / 3100 900 / 4000 Balance -1990 / -890 -700 / -1590 1210 / 1210 Weight last 48 hrs Weight 123.831 kg Physical Exam Const: COMMON NORMALS: no acute distress and patient oriented x3 OTHER: BiPAP in place. HENMT: COMMON NORMALS: oropharynx normal Neck/C-Spine: COMMON NORMALS: no JVD Resp: COMMON NORMALS: normal respiratory effort OTHER: Few minimal crackles. Cardio: COMMON NORMALS: no JVD, regular rhythm, S1 normal heart sound present, S2 normal heart sound present and No murmurs present (Cardio) RHYTHM: regular rhythm HEART SOUNDS: S1 normal heart sound present and S2 normal heart sound present GI: COMMON NORMALS: Normal to inspection, nondistended, normoactive bowel sounds present, Soft to palpation and non-tender PALPATION: Yes Soft to palpation Extremity: COMMON NORMALS: no joint enlargement and no pedal edema Neuro: COMMON NORMALS: patient oriented x3 and moves all extremities Skin: COMMON NORMALS: no rashes or lesions noted GENERAL SKIN EXAM: no rashes or lesions noted Urinary Catheter Management^: Aburto Latex Free: Cath Placed During This Visit: yes Reason for Continuing Indwelling Catheter: Accurate Measurement of Urinary Output in Critically Ill Patients Urinary Catheter Date of Insertion: 06/18/20 Urinary Catheter Time of Insertion: 10: Data : 06/28/20 03:55 06/28/20 03:55 A&P Assessment and plan (1) Acute respiratory failure with hypoxia: Discussed her condition again with her and her daughter, including options including intubation, continued supportive care with BiPAP, with her choosing to continue with this currently, with intubation if there is no other choice. Her family would like to visit again given her persistently poor condition, poor overall prognosis. Discussed in detail regarding extremely high risks of doing so. Continue Decadron. Continue budesonide, DuoNeb. She is in negative balance. Lasix have been on hold for now. Continue to monitor volume status. Continue Lovenox therapeutic dosing. Continue empiric antibiotics for possible superimposed bacterial pneumonia with Primaxin, vancomycin. Discussed with pulmonology. Pulmonary toilet. Flonase. -CTA chest: 1. No evidence for pulmonary embolus. 2. Multilobar peripheral ground-glass opacities, typical of COVID-19 pneumonia. This pattern can also be seen with influenza pneumonia and organizing pneumonia -cardiac echo shows: LV systolic function is grossly normal. Regional wall motion abnormalities can not be assessed because of poor visualization Grade 1 diastolic dysfunction Completed remdesivir. Completed convalescent plasma. Status: Acute (2) Pneumonia due to COVID-19 virus: Severe/life-threatening COVID-19 pneumonia as above. Status: Acute (3) Secondary bacterial pneumonia: Possible superimposed bacterial pneumonia as above. Status: Acute (4) Atrial fibrillation with RVR: Continue Cardizem. As needed metoprolol pushes. Lovenox. Status: Acute (5) Diarrhea: Resolved. Stool studies negative. Status: Acute Additional A&P Information Oropharyngeal candidiasis: nystatin swish and swallow, Diflucan for 7-day course because of oral thrush. Transaminitis: Improving. Most likely secondary to worsening COVID-19 pneumonia ARDS. Continue with supportive therapy. Continue to monitor liver numbers daily. Attestations Medical Necessity Statement*: Continue supportive care in the setting of severe/life-threatening COVID-19 infection. Coding Level of Care Code Acute Solar Energy Technician for [facility] Fwd Exam Comprehensive Diagnoses Acute respiratory failure with hypoxia J96.01 Pneumonia due to COVID-19 virus U07.1; J12.89 Secondary bacterial pneumonia J15.9 Atrial fibrillation with RVR I48.91 Diarrhea R19.7
[2020-06-28] MEDS: dexamethasone 4 mg/mL INJ 6 MG IVP (15:28)
--- NOTE | 2020-06-28 18:30 | PC.NURSE ---
Received report on patient from Rhianna LOW. Assumed care at this time.
[2020-06-29] VITALS (38 sets, daily range): BP systolic 106–155; BP diastolic 52–87; PULSE 55–83; RESP 16–39; TEMP 35.9–36.5; O2SAT 88–98
[2020-06-29] MEDS: vancomycin 1,500 MG/300 ML PIGGYBACK 200 MG IV ×2 (01:04→17:45)
[2020-06-29] MEDS: ipratropium-albuterol 3 mL Neb INHALATION ×5 (04:05→19:46)
[2020-06-29 05:03] LABS: ABG PCO2 47.6 mmHg (35-45); ABG PH Result 7.41 (7.35-7.45); Arterial Blood Gas Hematocrit 41.3 % (37-47); Base Excess ABG 4.5 mmol/L (-2.0-2.0); Blood Gas Allen Test Pos; Blood Gas Operator Identificat HARKR; Blood Gas Sample Site Radial, left; Blood Gas Sample Type Arterial; HCO3 ABG 30.1 mmol/L (22-26); Oxygen Device BIPAP; PO2 ABG 59.7 mmHg (80.0-100.0)
[2020-06-29] MEDS: dilTIAZem 60 mg Tablet 90 MG PO ×4 (05:06→22:40)
[2020-06-29] MEDS: morphine 4 mg/mL SDV 1 mL 1 MG IVP ×2 (05:07→12:36)
[2020-06-29 05:23] LABS: Basophils # 0.1 10^3/uL (0.0-0.1); Basophils % 0.3 %; Hematocrit 37.6 % (37.0-47.0); Hemoglobin 12.2 g/dL (11.5-15.3); Lymphocytes # 0.5 10^3/uL (0.8-4.8); Lymphocytes % 2.3 %; Mean Corpuscular HGB Conc 32.4 g/dL (30.0-36.0); Mean Corpuscular Hemoglobin 29.2 pg (28.0-34.0); Mean Platelet Volume 11.5 fL (7.4-10.4); Monocytes # 0.5 10^3/uL (0.2-0.9); Monocytes % 2.3 %; Neutrophils # 18.32 10^3/uL (1.8-7.7); Neutrophils % 92.4 %; Nucleated Red Blood Cells % 0 %; Platelet Count 228 10^3/cmm (130-400); Red Blood Count 4.18 10^6/uL (4.1-5.3); Red Cell Distribution Width 14.5 % (12.1-15.1); White Blood Count 19.8 10^3/uL (4.0-10.0)
[2020-06-29 05:46] LABS: Alanine Aminotransferase 37 U/L (0-33); Albumin Level 2.5 g/dL (3.5-5.2); Alkaline Phosphatase 148 IU/L (35-105); Blood Urea Nitrogen 22 mg/dL (8-23); C Reactive Protein 63.5 mg/L (0.0-4.9); Calcium 8.4 mg/dL (8.5-10.5); Carbon Dioxide 29 mmol/L (22-29); Chloride 101 mmol/L (98-107); Globulin 3.1 g/dL (1.3-4.6); Glucose 112 mg/dL (65-115); Osmolality Calculated 290 mOsm/kg (285-295); Sodium 138 mmol/L (136-145); Total Bilirubin 0.4 mg/dL (0.15-1.2); Total Protein 5.6 g/dL (6.6-8.7)
[2020-06-29 05:51] LABS: Anion Gap 13.2 (5-19); Aspartate Amino Transferase 28 U/L (0-32); Potassium 5.2 mmol/L (3.5-5.1)
[2020-06-29] MEDS: budesonide 0.5 mg/2 mL Neb INHALATION ×2 (08:14→19:46)
[2020-06-29] MEDS: benzonatate 100 mg Capsule PO ×2 (08:17→20:21)
[2020-06-29] MEDS: nystatin 100,000 unit/mL UDC 5 mL 500000 UNIT PO ×4 (08:18→20:21)
[2020-06-29] MEDS: pantoprazole DR 40 mg Tablet PO (08:18)
[2020-06-29] MEDS: zinc gluconate 50 mg Tablet PO (08:18)
[2020-06-29] MEDS: fluticasone nasal spray 16gm Btl 2 SPRAY NASAL (08:18)
[2020-06-29] MEDS: fluconazole 100 mg Tablet PO (08:18)
[2020-06-29] MEDS: ascorbic acid 500 mg Tablet 1000 MG PO ×2 (08:18→17:48)
--- NOTE | 2020-06-29 09:08 | PC.SOCIAL ---
IMM Not Updated Pg. 2 of IMM not updated as patient not anticipated to discharge within the next 48hours.
[2020-06-29] MEDS: enoxaparin 120 mg/0.8 mL Syringe SUBCUT ×2 (09:16→22:40)
[2020-06-29] MEDS: FUROsemide 10 mg/mL SDV 4mL 40 MG IVP ×2 (10:13→17:45)
[2020-06-29] MEDS: ALPRAZolam 0.25 mg Tablet 0.5 MG PO (11:45)
[2020-06-29] MEDS: dexamethasone 4 mg/mL INJ 6 MG IVP (15:54)
--- NOTE | 2020-06-29 17:06 | PC.OT ---
OT note: Discussed with nursing who requested to hold as pt is currently being proned. Will attempt later as able.
--- NOTE | 2020-06-29 19:30 | P.PN_ITS ---
Subjective Subjective: Interval history: This morning she says she still here. She is somewhat more tired this morning compared to yesterday. Has some pain in the right shoulder. Doing somewhat better in the afternoon after Lasix, proning, morphine, in fact with some decrease in FiO2 requirement. Vitals/I&O/Wt Last Vital Signs Temp 97.1 F L 06/29/20 18:00 Pulse 55 L 06/29/20 18:00 Resp 30 H 06/29/20 18:00 BP 123/77 06/29/20 18:00 Pulse Ox 90 06/29/20 18:00 06/29/20 06/29/20 06/29/20 06:59 14:59 22:59 Intake Total 100 / 2185 400 / 400 300 / 700 Output Total 500 / 1200 1625 / 1625 625 / 2250 Balance -400 / 985 -1225 / -1225 -325 / -1550 Weight last 48 hrs Weight 125.101 kg Weight 123.831 kg Physical Exam Const: COMMON NORMALS: no acute distress and patient oriented x3 OTHER: BiPAP in place. HENMT: COMMON NORMALS: oropharynx normal Neck/C-Spine: COMMON NORMALS: negative for no JVD Resp: COMMON NORMALS: normal respiratory effort AUSCULTATION: diminished lung sounds OTHER: Few minimal crackles. Cardio: COMMON NORMALS: regular rhythm, S1 normal heart sound present, S2 normal heart sound present and No murmurs present (Cardio); negative for no JVD (Some minimal JVD) RHYTHM: regular rhythm HEART SOUNDS: S1 normal heart sound present and S2 normal heart sound present GI: COMMON NORMALS: Normal to inspection, nondistended, normoactive bowel sounds present, Soft to palpation and non-tender PALPATION: Yes Soft to palpation Extremity: COMMON NORMALS: no joint enlargement and no pedal edema Neuro: COMMON NORMALS: patient oriented x3 and moves all extremities Skin: COMMON NORMALS: no rashes or lesions noted GENERAL SKIN EXAM: no rashes or lesions noted Urinary Catheter Management^: Aburto Latex Free: Cath Placed During This Visit: yes Reason for Continuing Indwelling Catheter: Accurate Measurement of Urinary Output in Critically Ill Patients Urinary Catheter Date of Insertion: 06/18/20 Urinary Catheter Time of Insertion: 10:20 Data : 06/29/20 03:45 06/29/20 03:45 A&P Assessment and plan (1) Acute respiratory failure with hypoxia: This morning she was appears well more tired, having to work little bit more her breathing. Preparations were going to be made for intubation. Noted mildly in positive balance, with possible weight gain. Some minimal JVD on exam. Given dose of Lasix. Proning at the time of my examination, appears to be tolerating this well. Received morphine for shoulder pain and this appears to have helped her air hunger as well. In fact with some decrease in FiO2 requirement up to 90% on BiPAP. Discussed with her daughter. For now intubation deferred. We will repeat Lasix dose tonight. Continue supportive care with BiPAP. Empiric antibiotics to be continued for now. There is some improvement in leukocytosis. D-dimer is lower today 2.2, although CRP has been climbing, up to 63.5 today. Continue Decadron. Continue budesonide, DuoNeb. Continue Lovenox therapeutic dosing. Continue empiric antibiotics for possible superimposed bacterial pneumonia with Primaxin, vancomycin. Discussed with pulmonology. Pulmonary toilet. Flonase. -CTA chest: 1. No evidence for pulmonary embolus. 2. Multilobar peripheral ground-glass opacities, typical of COVID-19 pneumonia. This pattern can also be seen with influenza pneumonia and organizing pneumonia -cardiac echo shows: LV systolic function is grossly normal. Regional wall motion abnormalities can not be assessed because of poor visualization Grade 1 diastolic dysfunction Completed remdesivir. Completed convalescent plasma. Status: Acute (2) Pneumonia due to COVID-19 virus: Severe/life-threatening COVID-19 pneumonia as above. Status: Acute (3) Secondary bacterial pneumonia: Possible superimposed bacterial pneumonia as above. Status: Acute (4) Atrial fibrillation with RVR: Continue Cardizem. As needed metoprolol pushes. Lovenox. Status: Acute (5) Diarrhea: Resolved. Stool studies negative. Status: Acute Additional A&P Information Hyperkalemia: Mild, 5.2. Given Lasix. Change diet to low potassium. Recheck potassium level. Oropharyngeal candidiasis: nystatin swish and swallow, Diflucan for 7-day course because of oral thrush. Transaminitis: Improving. Most likely secondary to worsening COVID-19 pneumonia ARDS. Continue with supportive therapy. Continue to monitor liver numbers daily. Per discussion with her daughter patient on number of occasions now expressed would not want chest compressions or defibrillation in case of cardiac arrest which is reasonable as chances of successful resuscitation in case of cardiac arrest would be minimal. Attestations Medical Necessity Statement*: Continue admission for assessment management of respiratory failure secondary to severe/life-threatening COVID-19. Coding Level of Care Code Acute Jacquard Loom Weaver for [facility] Fwd Diagnoses Acute respiratory failure with hypoxia J96.01 Pneumonia due to COVID-19 virus U07.1; J12.89 Secondary bacterial pneumonia J15.9 Atrial fibrillation with RVR I48.91 Diarrhea R19.7
--- NOTE | 2020-06-29 20:08 | PC.NURSE ---
Spoke with patient about permission to share. Patient gave verbal consent for Vesna Malin to receive information.
[2020-06-29 23:14] LABS: Potassium 4.7 mmol/L (3.5-5.1)
[2020-06-30] VITALS (37 sets, daily range): BP systolic 107–178; BP diastolic 47–95; PULSE 67–94; RESP 15–34; TEMP 36.7–37.1; O2SAT 87–99
[2020-06-30] MEDS: ipratropium-albuterol 3 mL Neb INHALATION ×7 (00:05→23:37)
--- NOTE | 2020-06-30 00:19 | PC.NURSE ---
Assessment AO x4, pt prond for respiratory support, positioned laterally intermittently, answers questions, follows commands, lungs clear but diminished, tolerating Bipap 90% fio2 at this time
[2020-06-30] MEDS: dilTIAZem 60 mg Tablet 90 MG PO ×4 (04:00→22:08)
--- NOTE | 2020-06-30 05:27 | PC.NURSE ---
this nurse and second nurse unable to draw venous blood for morning labs, Dr. Portillo approved drawing via arterial, RT unsuccessfulas well, Lab notified
--- NOTE | 2020-06-30 06:00 | XR_ITS ---
WS: [id number] Portable AP semiupright chest, 06/30/2020 Clinical Data: covid Comparison: Portable chest, 06/28/2020. Findings: Bilateral pulmonary opacities remain the same. The heart is normal. There are no masses or effusions. Monitor leads are on the chest wall. XR/XR chest 1V portable [id number] Impression: No change in bilateral pulmonary opacities.
[2020-06-30 06:07] LABS: Basophils % 0.2 %; Eosinophils % 0.1 %; Hematocrit 43.4 % (37.0-47.0); Hemoglobin 14.6 g/dL (11.5-15.3); Lymphocytes # 0.5 10^3/uL (0.8-4.8); Lymphocytes % 2.3 %; Mean Corpuscular HGB Conc 33.6 g/dL (30.0-36.0); Mean Corpuscular Hemoglobin 28.9 pg (28.0-34.0); Mean Corpuscular Volume 85.9 fL (81-99); Mean Platelet Volume 10.9 fL (7.4-10.4); Monocytes # 0.5 10^3/uL (0.2-0.9); Monocytes % 2.4 %; Neutrophils # 18.18 10^3/uL (1.8-7.7); Neutrophils % 92.8 %; Nucleated Red Blood Cells % 0 %; Platelet Count 240 10^3/cmm (130-400); Red Blood Count 5.05 10^6/uL (4.1-5.3); White Blood Count 19.6 10^3/uL (4.0-10.0)
[2020-06-30 06:22] LABS: Alkaline Phosphatase 206 IU/L (35-105); Blood Urea Nitrogen 32 mg/dL (8-23); Calcium 8.8 mg/dL (8.5-10.5); Carbon Dioxide 30 mmol/L (22-29); Chloride 98 mmol/L (98-107); Globulin 2.7 g/dL (1.3-4.6); Glucose 127 mg/dL (65-115); Osmolality Calculated 296 mOsm/kg (285-295); Sodium 139 mmol/L (136-145); Total Bilirubin 0.4 mg/dL (0.15-1.2); Total Protein 5.7 g/dL (6.6-8.7)
[2020-06-30 06:25] LABS: Alanine Aminotransferase 50 U/L (0-33); Anion Gap 16.1 (5-19); Aspartate Amino Transferase 44 U/L (0-32)
[2020-06-30 06:26] LABS: Potassium 5.1 mmol/L (3.5-5.1)
--- NOTE | 2020-06-30 06:26 | NUR.SHIFT ---
tolerated being positioned to supine from proning, RT decreased Bipap Fio2 from 90 to 85% and is Tolerating well, LAB able to obtain all labs except CRP and is to notify their next shift, AO x4, denies SOB, follows commands, call light within reach
[2020-06-30] MEDS: fluticasone nasal spray 16gm Btl 2 SPRAY NASAL ×2 (08:34→15:51)
[2020-06-30] MEDS: zinc gluconate 50 mg Tablet PO (08:34)
[2020-06-30] MEDS: bisacodyl 5 mg Tablet 10 MG PO (08:34)
[2020-06-30] MEDS: fluconazole 100 mg Tablet PO (08:34)
[2020-06-30] MEDS: benzonatate 100 mg Capsule PO ×3 (08:34→20:06)
[2020-06-30] MEDS: nystatin 100,000 unit/mL UDC 5 mL 500000 UNIT PO ×4 (08:34→20:06)
[2020-06-30] MEDS: ascorbic acid 500 mg Tablet 1000 MG PO ×2 (08:34→15:52)
[2020-06-30] MEDS: ALPRAZolam 0.25 mg Tablet 0.5 MG PO ×3 (08:34→23:01)
[2020-06-30] MEDS: pantoprazole DR 40 mg Tablet PO (08:34)
[2020-06-30] MEDS: budesonide 0.5 mg/2 mL Neb INHALATION ×2 (08:40→20:03)
[2020-06-30 08:56] LABS: D Dimer 2.11 ug/mIFEU (0-0.59)
[2020-06-30] MEDS: enoxaparin 120 mg/0.8 mL Syringe SUBCUT ×2 (09:17→22:08)
[2020-06-30] MEDS: vancomycin 1,500 MG/300 ML PIGGYBACK 200 MG IV (11:33)
[2020-06-30] MEDS: lactulose oral liq 20 gm/30 mL UDC 10 GM PO (15:10)
[2020-06-30] MEDS: dexamethasone 4 mg/mL INJ 6 MG IVP (15:10)
--- NOTE | 2020-06-30 15:11 | P.PN_ITS ---
Subjective Subjective: Interval history: Feels a little bit better today and a bit more encouraged. Denies chest pain or pressure. Denies headache. No nausea vomiting or diarrhea. Is wanting to try to prone a little bit later today. Vitals/I&O/Wt Last Vital Signs Temp 98.1 F 06/30/20 12:00 Pulse 80 06/30/20 14:01 Resp 18 06/30/20 14:01 BP 152/77 06/30/20 14:01 Pulse Ox 88 L 06/30/20 14:01 06/30/20 06/30/20 06/30/20 06:59 14:59 22:59 Intake Total 100 / 900 1253.333 / 1253.333 Output Total 1500 / 3750 Balance -1400 / -2850 1253.333 / 1253.333 Weight last 48 hrs Weight 121.109 kg Weight 125.101 kg Physical Exam Const: COMMON NORMALS: no acute distress and patient oriented x3 OTHER: HHF cannula HENMT: COMMON NORMALS: oropharynx normal Neck/C-Spine: COMMON NORMALS: negative for no JVD Resp: COMMON NORMALS: normal respiratory effort AUSCULTATION: diminished dana ng sounds OTHER: Few crackles at bases. Cardio: COMMON NORMALS: regular rhythm, S1 normal heart sound present, S2 normal heart sound present and No murmurs present (Cardio); negative for no JVD RHYTHM: regular rhythm HEART SOUNDS: S1 normal heart sound present and S2 normal heart sound present GI: COMMON NORMALS: Normal to inspection, nondistended, normoactive bowel sounds present, Soft to palpation and non-tender PALPATION: Yes Soft to palpation Extremity: COMMON NORMALS: no joint enlargement and no pedal edema Neuro: COMMON NORMALS: patient oriented x3 and moves all extremities Skin: COMMON NORMALS: no rashes or lesions noted GENERAL SKIN EXAM: no rashes or lesions noted Urinary Catheter Management^: Aburto Latex Free: Cath Placed During This Visit: yes Reason for Continuing Indwelling Catheter: Accurate Measurement of Urinary Output in Critically Ill Patients Urinary Catheter Date of Insertion: 06/18/20 Urinary Catheter Time of Insertion: 10:20 Data : 06/30/20 05:50 06/30/20 05:50 A&P Assessment and plan (1) Acute respiratory failure with hypoxia: Last night FiO2 requirement improved. Today trialed on 100% HHF trial. Will repeat additional Lasix as I hear bilateral LL crackles again and keep standing order for Q12h for now. Self prone if tolerating. BiPAP as needed. D-dimer is a bit better, CRP appears plateaued. With some effect on the liver as well, with increased liver parameters AST 44, ALT 50, AP 206. No abdominal pain. No tenderness on palpation. T bili is normal. Monitor. Continue Decadron. Continue budesonide, DuoNeb. Continue Lovenox therapeutic dosing. Continue empiric antibiotics for possible superimposed bacterial pneumonia with Primaxin, vancomycin as discussed with pulmonology. Currently unavailable. Will touch base again when returns. Pulmonary toilet. Flonase. -CTA chest: 1. No evidence for pulmonary embolus. 2. Multilobar peripheral ground-glass opacities, typical of COVID-19 pneumonia. This pattern can also be seen with influenza pneumonia and organizing pneumonia -cardiac echo shows: LV systolic function is grossly normal. Regional wall motion abnormalities can not be assessed because of poor visualization Grade 1 diastolic dysfunction Completed remdesivir. Completed convalescent plasma. Status: Acute (2) Pneumonia due to COVID-19 virus: Severe/life-threatening COVID-19 pneumonia as above. Status: Acute (3) Secondary bacterial pneumonia: Possible superimposed bacterial pneumonia as above. Status: Acute (4) Atrial fibrillation with RVR: Continue Cardizem. As needed metoprolol pushes. Lovenox. Status: Acute (5) Diarrhea: Resolved. Stool studies negative. Status: Acute Additional A&P Information Hyperkalemia: Improved. Lasix. Low potassium diet. Oropharyngeal candidiasis: nystatin swish and swallow, Diflucan for 7-day course because of oral thrush. Transaminitis: Most likely secondary to worsening COVID-19 pneumonia ARDS. Continue with supportive therapy. Continue to monitor liver numbers daily. Attestations Medical Necessity Statement*: Continue admission for assessment management of hypoxic respiratory failure with severe COVID-19. Coding Level of Care Code Acute Summons Server for [facility] Fw Diagnoses Acute respiratory failure with hypoxia J96.01 Pneumonia due to COVID-19 virus U07.1; J12.89 Secondary bacterial pneumonia J15.9 Atrial fibrillation with RVR I48.91 Diarrhea R19.7
[2020-06-30] MEDS: morphine 4 mg/mL SDV 1 mL 1 MG IVP (15:47)
[2020-06-30] MEDS: FUROsemide 10 mg/mL SDV 4mL 40 MG IVP (17:00)
--- NOTE | 2020-06-30 20:49 | PC.NURSE ---
Assessment AO x4, answers questions appropiatly, follows commands, placed on Bipap from HHF per RT to maintain sat while sleeping, lungs clear but diminished, positioned supine from pron at this time tolerating well
[2020-07-01] VITALS (35 sets, daily range): BP systolic 111–160; BP diastolic 49–110; PULSE 74–98; RESP 14–30; TEMP 36.3–36.7; O2SAT 78–100
[2020-07-01] MEDS: morphine 4 mg/mL SDV 1 mL 1 MG IVP ×3 (02:09→16:02)
[2020-07-01] MEDS: ipratropium-albuterol 3 mL Neb INHALATION ×5 (03:45→20:29)
[2020-07-01 03:46] LABS: Basophils % 0.2 %; Hematocrit 38.3 % (37.0-47.0); Hemoglobin 12.9 g/dL (11.5-15.3); Lymphocytes # 0.4 10^3/uL (0.8-4.8); Mean Corpuscular HGB Conc 33.7 g/dL (30.0-36.0); Mean Corpuscular Hemoglobin 28.8 pg (28.0-34.0); Mean Corpuscular Volume 85.5 fL (81-99); Mean Platelet Volume 11.1 fL (7.4-10.4); Monocytes # 0.4 10^3/uL (0.2-0.9); Monocytes % 2.1 %; Neutrophils # 17.46 10^3/uL (1.8-7.7); Neutrophils % 94.4 %; Nucleated Red Blood Cells % 0 %; Platelet Count 266 10^3/cmm (130-400); Red Blood Count 4.48 10^6/uL (4.1-5.3); Red Cell Distribution Width 14.3 % (12.1-15.1); White Blood Count 18.5 10^3/uL (4.0-10.0)
[2020-07-01 03:57] LABS: D Dimer 1.78 ug/mIFEU (0-0.59)
[2020-07-01 04:07] LABS: Alanine Aminotransferase 40 U/L (0-33); Albumin Level 2.8 g/dL (3.5-5.2); Alkaline Phosphatase 170 IU/L (35-105); Blood Urea Nitrogen 30 mg/dL (8-23); C Reactive Protein 42.2 mg/L (0.0-4.9); Calcium 8.8 mg/dL (8.5-10.5); Carbon Dioxide 31 mmol/L (22-29); Chloride 98 mmol/L (98-107); Globulin 2.9 g/dL (1.3-4.6); Glucose 153 mg/dL (65-115); Osmolality Calculated 295 mOsm/kg (285-295); Sodium 138 mmol/L (136-145); Total Bilirubin 0.3 mg/dL (0.15-1.2); Total Protein 5.7 g/dL (6.6-8.7); Vancomycin Trough 10.6 ug/mL (10-15)
[2020-07-01 04:09] LABS: Anion Gap 13.2 (5-19); Aspartate Amino Transferase 33 U/L (0-32); Potassium 4.2 mmol/L (3.5-5.1)
[2020-07-01] MEDS: dilTIAZem 60 mg Tablet 90 MG PO ×4 (05:07→22:14)
[2020-07-01] MEDS: FUROsemide 10 mg/mL SDV 4mL 40 MG IVP ×2 (05:08→17:02)
[2020-07-01] MEDS: vancomycin 1,500 MG/300 ML PIGGYBACK 200 MG IV ×2 (06:27→17:02)
[2020-07-01] MEDS: budesonide 0.5 mg/2 mL Neb INHALATION ×3 (07:55→20:29)
[2020-07-01] MEDS: ascorbic acid 500 mg Tablet 1000 MG PO (08:01)
[2020-07-01] MEDS: loperamide 2 mg Capsule PO (08:01)
[2020-07-01] MEDS: benzonatate 100 mg Capsule PO ×2 (08:02→20:04)
[2020-07-01] MEDS: zinc gluconate 50 mg Tablet PO (08:02)
[2020-07-01] MEDS: pantoprazole DR 40 mg Tablet PO (08:02)
[2020-07-01] MEDS: nystatin 100,000 unit/mL UDC 5 mL 500000 UNIT PO ×3 (08:02→20:04)
[2020-07-01] MEDS: fluconazole 100 mg Tablet PO (08:02)
[2020-07-01] MEDS: fluticasone nasal spray 16gm Btl 2 SPRAY NASAL (08:03)
[2020-07-01] MEDS: enoxaparin 120 mg/0.8 mL Syringe SUBCUT ×2 (09:51→22:15)
--- NOTE | 2020-07-01 13:30 | PC.SOCIAL ---
[facility] Updated Page 2 of [facility] updated with family over the phone. They verbalize understanding. Initialed, dated, and timed and will be sent to medical records upon d/c.
[2020-07-01] MEDS: dexamethasone 4 mg/mL INJ 6 MG IVP (15:05)
[2020-07-01] MEDS: LORazepam 2 mg/mL INJ 1 mL 0.5 MG IVP (16:23)
--- NOTE | 2020-07-01 18:29 | P.PN_ITS ---
Subjective Subjective: Interval history: She states she is doing alright. She was started on BiPAP after getting tired on high flow cannula. She denies any chest pain or pressure. Denies any headache. No vomiting. She had an episode of diarrhea reports early this morning. Vitals/I&O/Wt Last Vital Signs Temp 97.3 F L 07/01/20 15:01 Pulse 87 07/01/20 18:00 Resp 24 H 07/01/20 15:11 BP 128/70 07/01/20 18:00 Pulse Ox 90 07/01/20 18:00 07/01/20 07/01/20 07/01/20 06:59 14:59 22:59 Intake Total 100 / 1933.333 460 / 460 Output Total 999 / 1974 1300 / 1300 250 / 1550 Balance -900 / -41.667 -840 / -840 -250 / -1090 Weight last 48 hrs Weight 119.295 kg Weight 121.109 kg Physical Exam Const: COMMON NORMALS: no acute distress and patient oriented x3 OTHER: BiPAP HENMT: COMMON NORMALS: oropharynx normal Neck/C-Spine: COMMON NORMALS: negative for no JVD Resp: COMMON NORMALS: normal respiratory effort AUSCULTATION: diminished lung sounds OTHER: Few crackles at bases. Cardio: COMMON NORMALS: regular rhythm, S1 normal heart sound present, S2 normal heart sound present and No murmurs present (Cardio); negative for no JVD RHYTHM: regular rhythm HEART SOUNDS: S1 normal heart sound present and S2 normal heart sound present GI: COMMON NORMALS: Normal to inspection, nondistended, normoactive bowel sounds present, Soft to palpation and non-tender PALPATION: Yes Soft to palpation Extremity: COMMON NORMALS: no joint enlargement and no pedal edema Neuro: COMMON NORMALS: patient oriented x3 and moves all extremities Skin: COMMON NORMALS: no rashes or lesions noted GENERAL SKIN EXAM: no rashes or lesions noted Urinary Catheter Management^: Aburto Latex Free: Cath Placed During This Visit: yes Reason for Continuing Indwelling Catheter: Accurate Measurement of Urinary Output in Critically Ill Patients Urinary Catheter Date of Insertion: 06/18/20 Urinary Catheter Time of Insertion: 10:20 Data : 07/01/20 03:15 07/01/20 03:15 A&P Assessment and plan (1) Acute respiratory failure with hypoxia: Today she got more tired on high flow, to be switched to BiPAP. Feeling a little better. Appreciate pulmonology recommendations. Continue supportive care currently. Saturations as long as remained above 84-95, acceptable. If starts desaturating further, or becoming very tired, showing arrhythmia, etc., may require intubation. Continue Lasix. CRP and D-dimer appears to be improving. Discussed with her daughter. Discussed consideration if not improving of tracheostomy. Continue Lovenox therapeutic dosing. Continue empiric antibiotics for possible superimposed bacterial pneumonia with Primaxin, vancomycin, as discussed with pulmonology if were to be improving ant ibiotics may be de-escalating. Pulmonary toilet. Flonase. -CTA chest: 1. No evidence for pulmonary embolus. 2. Multilobar peripheral ground-glass opacities, typical of COVID-19 pneumonia. This pattern can also be seen with influenza pneumonia and organizing pneumonia -cardiac echo shows: LV systolic function is grossly normal. Regional wall motion abnormalities can not be assessed because of poor visualization Grade 1 diastolic dysfunction Completed remdesivir. Completed convalescent plasma. Status: Acute (2) Pneumonia due to COVID-19 virus: Severe/life-threatening COVID-19 pneumonia as above. Status: Acute (3) Secondary bacterial pneumonia: Possible superimposed bacterial pneumonia as above. Status: Acute (4) Atrial fibrillation with RVR: Continue Cardizem. As needed metoprolol pushes. Lovenox. Status: Acute (5) Diarrhea: Resolved. Stool studies negative. Status: Acute Additional A&P Information Hyperkalemia: Improved. Lasix. Low potassium diet. Oropharyngeal candidiasis: nystatin swish and swallow, Diflucan for 7-day course because of oral thrush. Transaminitis: Most likely secondary to worsening COVID-19 pneumonia ARDS. Continue with supportive therapy. Continue to monitor liver numbers daily. Attestations Medical Necessity Statement*: Continue admission for abscess management of hypoxic respiratory failure, severe COVID-19 infection. Coding Level of Care Code Acute Grinder Operator Tool for [facility] Fwdillon Diagnoses Acute respiratory failure with hypoxia J96.01 Pneumonia due to COVID-19 virus U07.1; J12.89 Secondary bacterial pneumonia J15.9 Atrial fibrillation with RVR I48.91 Diarrhea R19.7
--- NOTE | 2020-07-01 19:31 | PM.PN ---
Subjective Subjective: Interval history: The patient was seen and examined. The patient is requiring noninvasive positive pressure ventilation with 100% oxygen to maintain a saturation in the high 80s to low 90s. The patient is in the third week of her illness. Her ARDS is clearly in the fibrotic phase at this point. The patient is not complaining of any significant shortness of breath while resting. She is receiving anticoagulation and steroid therapy. However, at this point it is unpredictable what course her COVID-19 pneumonia is cannot take. She is also covered with broad-spectrum antibiotics. There is no evidence of active bacterial infection at this point. Medications: Reviewed: Yes Vitals/I&O/Wt Last Vital Signs Temp 97.3 F L 07/01/20 15:01 Pulse 87 07/01/20 18:00 Resp 24 H 07/01/20 15:11 BP 128/70 07/01/20 18:00 Pulse Ox 90 07/01/20 18:00 07/01/20 07/01/20 07/01/20 06:59 14:59 22:59 Intake Total 100 / 1933.333 460 / 460 Output Total 999 / 1974 1300 / 1300 250 / 1550 Balance -900 / -41.667 -840 / -840 -250 / -1090 Weight last 48 hrs Weight 263 lb Weight 267 lb Physical Exam Narrative: EXAM NARRATIVE: General: Patient is awake alert and oriented, in no distress while resting. She is able to hold a conversation with the full facemask on Neck: No JVD Respiratory: Auscultation: Mild crackles at the lung bases, no wheezing or rhonchi Cardiovascular: Regular rate and rhythm, S1-S2 present, no murmur, no peripheral edema. Abdomen: Soft, nontender, nondistended, positive bowel sound Musculoskeletal: No obvious joint deformity Skin: No rash Neuro: Mental status is normal, no gross cranial nerve deficit, no gross motor deficit Urinary Catheter Management^: Aburto Latex Free: Cath Placed During This Visit: yes Reason for Continuing Indwelling Catheter: Accurate Measurement of Urinary Output in Critically Ill Patients Urinary Catheter Date of Insertion: 06/18/20 Urinary Catheter Time of Insertion: 10:20 Data : 07/01/20 03:15 07/01/20 03:15 Attestation for Other Data: I personally reviewed and interpreted the following: Other data: I reviewed the patient laboratory microbiologic and radiologic data. The patient has mildly elevated leukocyte count which is likely secondary to the steroid therapy. Evaded BUN could also be from that the chest radiograph since admission has revealed progressive worsening with bilateral diffuse infiltrate. 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 A&P Assessment and plan (1) Acute respiratory distress syndrome (ARDS) due to 2019 novel coronavirus: The patient is in her third week of ARDS from COVID-19 pneumonia. At this point, the patient is being appropriately managed with steroid therapy, anticoagulation and empiric antibiotic therapy. Unfortunately, the patient continues to require 100% oxygen. If the patient continues to saturate 85% and above we can continue with the current therapy. The noninvasive ventilator can be alternated with high flow nasal cannula if possible. The patient is agreeable for intubation mechanical ventilation if that is necessary. There is any evidence of cardiac dysrhythmia or hypoxia affecting her mental status or other vital organs the patient might require intubation. I do believe, if she does get intubated she will likely need a tracheostomy. Status: Acute Attestations Medical Necessity Statement*: Will defer to the primary team Coding Level of Care Code Acute Successfactors Consultant for [facility] Fwd Diagnoses Acute respiratory distress syndrome (ARDS) due to 2019 novel coronavirus U07.1; J80
--- NOTE | 2020-07-01 21:21 | PC.NURSE ---
Daughter Vanesa called to check on pt and get updates.
[2020-07-02] VITALS (39 sets, daily range): BP systolic 104–151; BP diastolic 54–78; PULSE 66–98; RESP 14–34; TEMP 36.9; O2SAT 82–94
[2020-07-02] MEDS: ipratropium-albuterol 3 mL Neb INHALATION ×6 (00:08→20:26)
[2020-07-02] MEDS: FUROsemide 10 mg/mL SDV 4mL 40 MG IVP ×2 (05:24→17:51)
[2020-07-02] MEDS: dilTIAZem 60 mg Tablet 90 MG PO ×4 (05:24→21:15)
[2020-07-02] MEDS: vancomycin 1,500 MG/300 ML PIGGYBACK 200 MG IV ×2 (05:25→17:52)
--- NOTE | 2020-07-02 07:04 | PC.NURSE ---
Report to MARANDA Orellana
[2020-07-02] MEDS: budesonide 0.5 mg/2 mL Neb INHALATION ×2 (08:21→20:26)
[2020-07-02] MEDS: ascorbic acid 500 mg Tablet 1000 MG PO ×2 (09:13→17:52)
[2020-07-02] MEDS: nystatin 100,000 unit/mL UDC 5 mL 500000 UNIT PO ×4 (09:13→21:05)
[2020-07-02] MEDS: benzonatate 100 mg Capsule PO ×3 (09:14→21:05)
[2020-07-02] MEDS: fluconazole 100 mg Tablet PO (09:14)
[2020-07-02] MEDS: pantoprazole DR 40 mg Tablet PO (09:14)
[2020-07-02] MEDS: enoxaparin 120 mg/0.8 mL Syringe SUBCUT ×2 (09:14→21:16)
[2020-07-02] MEDS: zinc gluconate 50 mg Tablet PO (09:14)
[2020-07-02] MEDS: fluticasone nasal spray 16gm Btl 2 SPRAY NASAL ×2 (09:58→17:53)
[2020-07-02 10:10] LABS: Basophils % 0.1 %; Eosinophils % 0.1 %; Hematocrit 39.8 % (37.0-47.0); Hemoglobin 13.2 g/dL (11.5-15.3); Lymphocytes # 0.6 10^3/uL (0.8-4.8); Lymphocytes % 3.5 %; Mean Corpuscular HGB Conc 33.2 g/dL (30.0-36.0); Mean Corpuscular Hemoglobin 28.6 pg (28.0-34.0); Mean Corpuscular Volume 86.3 fL (81-99); Mean Platelet Volume 10.7 fL (7.4-10.4); Monocytes # 0.5 10^3/uL (0.2-0.9); Monocytes % 2.9 %; Neutrophils # 14.37 10^3/uL (1.8-7.7); Neutrophils % 91.8 %; Nucleated Red Blood Cells % 0 %; Platelet Count 313 10^3/cmm (130-400); Red Blood Count 4.61 10^6/uL (4.1-5.3); Red Cell Distribution Width 14.1 % (12.1-15.1); White Blood Count 15.7 10^3/uL (4.0-10.0)
[2020-07-02 10:23] LABS: D Dimer 1.64 ug/mIFEU (0-0.59)
[2020-07-02 10:28] LABS: Alanine Aminotransferase 48 U/L (0-33); Albumin Level 2.8 g/dL (3.5-5.2); Alkaline Phosphatase 181 IU/L (35-105); Anion Gap 13.6 (5-19); Aspartate Amino Transferase 33 U/L (0-32); Blood Urea Nitrogen 31 mg/dL (8-23); Calcium 8.9 mg/dL (8.5-10.5); Carbon Dioxide 33 mmol/L (22-29); Chloride 93 mmol/L (98-107); Globulin 3.3 g/dL (1.3-4.6); Glucose 157 mg/dL (65-115); Osmolality Calculated 292 mOsm/kg (285-295); Potassium 3.6 mmol/L (3.5-5.1); Sodium 136 mmol/L (136-145); Total Bilirubin 0.5 mg/dL (0.15-1.2); Total Protein 6.1 g/dL (6.6-8.7)
--- NOTE | 2020-07-02 10:44 | PC.OT ---
OT tx attempted. Nursing reports pt unable to tolerate tx at this time and requests OT services be withheld today. Therapist to attempt again tomorrow.
--- NOTE | 2020-07-02 11:09 | PC.NURSE ---
Update Patient is sitting up in bed on high flow oxygen. O2 level is staying in desired range. Will continue to monitor.
[2020-07-02 11:17] LABS: C Reactive Protein 18.5 mg/L (0.0-4.9)
[2020-07-02] MEDS: dexamethasone 4 mg/mL INJ 6 MG IVP (15:12)
[2020-07-02] MEDS: ALPRAZolam 0.25 mg Tablet 0.5 MG PO (21:05)
--- NOTE | 2020-07-02 21:28 | PM.PN ---
Subjective Subjective: Interval history: Today she is doing a little bit better. Stayed on high flow cannula most of the day. Feels better after washing her hair this morning. Vitals/I&O/Wt Last Vital Signs Temp 97.3 F L 07/01/20 15:01 Pulse 77 07/02/20 20:26 Resp 21 H 07/02/20 20:26 BP 134/78 07/02/20 18:00 Pulse Ox 88 L 07/02/20 20:26 07/02/20 07/02/20 07/02/20 06:59 14:59 22:59 Intake Total 400 / 1560 500 / 500 Output Total 2300 / 4150 1400 / 1400 Balance -1900 / -2590 -900 / -900 Weight last 48 hrs Weight 121.109 kg Weight 119.295 kg Physical Exam Const: COMMON NORMALS: no acute distress, patient oriented x3 and alert ORIENTATION/CONSCIOUSNESS: Yes awake OTHER: HFC. In better spirits today. HENMT: COMMON NORMALS: oropharynx normal Neck/C-Spine: COMMON NORMALS: negative for no JVD Resp: COMMON NORMALS: normal respiratory effort AUSCULTATION: diminished lung sounds OTHER: Crackles at bases better today, some residual on the right Cardio: COMMON NORMALS: regular rhythm, S1 normal heart sound present, S2 normal heart sound present and No murmurs present (Cardio); negative for no JVD RHYTHM: regular rhythm HEART SOUNDS: S1 normal heart sound present and S2 normal heart sound present GI: COMMON NORMALS: Normal to inspection, nondistended, normoactive bowel sounds present, Soft to palpation and non-tender PALPATION: Yes Soft to palpation Extremity: COMMON NORMALS: no joint enlargement GENERAL: Yes edema (Trace pedal edema) Neuro: COMMON NORMALS: patient oriented x3 and moves all extremities SENSORIUM/ORIENTATION: Yes alert Skin: COMMON NORMALS: no rashes or lesions noted GENERAL SKIN EXAM: no rashes or lesions noted Urinary Catheter Management^: Aburto Latex Free: Cath Placed During This Visit: yes Reason for Continuing Indwelling Catheter: Accurate Measurement of Urinary Output in Critically Ill Patients Urinary Catheter Date of Insertion: 06/18/20 Urinary Catheter Time of Insertion: 10:20 Data : 07/02/20 09:30 07/02/20 09:30 A&P Assessment and plan (1) Acute respiratory failure with hypoxia: She is doing little bit better today. Was switched over to high flow cannula and tolerated that for most of the day. D-dimer and CRP are both lower. Crackles on exam are better. Does have some trace lower extremity edema. For now continue Lasix. Continue Lovenox. Continue oxygen support, attempt to wean off BiPAP with support as needed. Continue Decadron. For now continue empiric antibiotics. Pulmonary toilet. Flonase. Depending on further progress, consideration of tracheostomy. -CTA chest: 1. No evidence for pulmonary embolus. 2. Multilobar peripheral ground-glass opacities, typical of COVID-19 pneumonia. This pattern can also be seen with influenza pneumonia and organizing pneumonia -cardiac echo shows: LV systolic function is grossly normal. Regional wall motion abnormalities can not be assessed because of poor visualization Grade 1 diastolic dysfunction Completed remdesivir. Completed convalescent plasma. Status: Acute (2) Pneumonia due to COVID-19 virus: Severe/life-threatening COVID-19 pneumonia as above. Status: Acute (3) Secondary bacterial pneumonia: Possible superimposed bacterial pneumonia as above. Status: Acute (4) Atrial fibrillation with RVR: Continue Cardizem. As needed metoprolol pushes. Lovenox. Status: Acute (5) Diarrhea: Resolved. Stool studies negative. Status: Acute Additional A&P Information Hyperkalemia: Improved. Lasix. Low potassium diet. Oropharyngeal candidiasis: nystatin swish and swallow, Diflucan for 7-day course because of oral thrush. Transaminitis: Most likely secondary to worsening COVID-19 pneumonia ARDS. Continue with supportive therapy. Continue to monitor liver numbers daily. Continue attempts to wean down oxygen support, wean off BiPAP dependence, diuresis, steroid, antibiotic, anticoagulation. Continue PT. Attestations Medical Necessity Statement*: Continue admission for assessment management of severe hypoxic respiratory failure secondary to severe COVID-19, with possible bacterial superinfection, with coagulopathy. Coding Level of Care Code Acute Character Actress for [facility] Diagnoses Acute respiratory failure with hypoxia J96.01 Pneumonia due to COVID-19 virus U07.1; J12.89 Secondary bacterial pneumonia J15.9 Atrial fibrillation with RVR I48.91 Diarrhea R19.7
[2020-07-02] MEDS: LORazepam 2 mg/mL INJ 1 mL 0.5 MG IVP (23:46)
[2020-07-03] VITALS (40 sets, daily range): BP systolic 100–151; BP diastolic 61–101; PULSE 67–104; RESP 14–34; TEMP 36.9–37.5; O2SAT 83–94; BMI 43.6
[2020-07-03] MEDS: ipratropium-albuterol 3 mL Neb INHALATION ×6 (00:20→19:56)
[2020-07-03 04:20] LABS: Basophils % 0.1 %; Eosinophils % 0.1 %; Hematocrit 36.1 % (37.0-47.0); Lymphocytes # 0.4 10^3/uL (0.8-4.8); Mean Corpuscular HGB Conc 33.2 g/dL (30.0-36.0); Mean Corpuscular Hemoglobin 28.8 pg (28.0-34.0); Mean Corpuscular Volume 86.6 fL (81-99); Mean Platelet Volume 10.7 fL (7.4-10.4); Monocytes # 0.3 10^3/uL (0.2-0.9); Monocytes % 2.2 %; Neutrophils # 13.21 10^3/uL (1.8-7.7); Nucleated Red Blood Cells % 0 %; Platelet Count 267 10^3/cmm (130-400); Red Blood Count 4.17 10^6/uL (4.1-5.3); Red Cell Distribution Width 14.2 % (12.1-15.1); White Blood Count 14.2 10^3/uL (4.0-10.0)
[2020-07-03 04:51] LABS: Alanine Aminotransferase 47 U/L (0-33); Albumin Level 2.7 g/dL (3.5-5.2); Alkaline Phosphatase 153 IU/L (35-105); Aspartate Amino Transferase 26 U/L (0-32); Blood Urea Nitrogen 31 mg/dL (8-23); Calcium 8.5 mg/dL (8.5-10.5); Carbon Dioxide 34 mmol/L (22-29); Chloride 96 mmol/L (98-107); Globulin 2.7 g/dL (1.3-4.6); Glucose 129 mg/dL (65-115); Osmolality Calculated 292 mOsm/kg (285-295); Sodium 137 mmol/L (136-145); Total Bilirubin 0.4 mg/dL (0.15-1.2); Total Protein 5.4 g/dL (6.6-8.7)
[2020-07-03 05:38] LABS: D Dimer 1.33 ug/mIFEU (0-0.59)
[2020-07-03] MEDS: FUROsemide 10 mg/mL SDV 4mL 40 MG IVP (06:35)
[2020-07-03] MEDS: vancomycin 1,500 MG/300 ML PIGGYBACK 250 MG IV ×2 (06:35→17:35)
[2020-07-03] MEDS: budesonide 0.5 mg/2 mL Neb INHALATION ×2 (08:20→19:57)
[2020-07-03] MEDS: benzonatate 100 mg Capsule PO ×3 (09:18→20:01)
[2020-07-03] MEDS: pantoprazole DR 40 mg Tablet PO (09:18)
[2020-07-03] MEDS: zinc gluconate 50 mg Tablet PO (09:18)
[2020-07-03] MEDS: enoxaparin 120 mg/0.8 mL Syringe SUBCUT ×2 (09:18→21:22)
[2020-07-03] MEDS: ascorbic acid 500 mg Tablet 1000 MG PO ×2 (09:18→17:34)
[2020-07-03] MEDS: nystatin 100,000 unit/mL UDC 5 mL 500000 UNIT PO ×3 (09:19→20:03)
[2020-07-03] MEDS: fluconazole 100 mg Tablet PO (09:19)
[2020-07-03] MEDS: fluticasone nasal spray 16gm Btl 2 SPRAY NASAL ×2 (09:20→17:36)
[2020-07-03] MEDS: dilTIAZem 60 mg Tablet 90 MG PO ×3 (10:54→22:12)
--- NOTE | 2020-07-03 11:04 | PC.OT ---
OT tx attempted. Nursing reports pt unable to tolerate therapies today and request holding services. Therapy to continue to monitor pt status.
[2020-07-03] MEDS: dexamethasone 4 mg/mL INJ 6 MG IVP (15:41)
--- NOTE | 2020-07-03 16:56 | P.PN_ITS ---
Subjective Subjective: Interval history: She states is doing so-so/okay. Denies any headache, denies any chest pain or pressure. Denies nausea vomiting or diarrhea. States she has been doing little bit of bilateral exercise with her arms on her own as instructed by PT. Asks if proning for a while may be beneficial today. Vitals/I&O/Wt Last Vital Signs Temp 98.6 F 07/03/20 14:48 Pulse 86 07/03/20 16:23 Resp 20 H 07/03/20 16:23 BP 125/61 07/03/20 13:01 Pulse Ox 88 L 07/03/20 16:23 07/03/20 07/03/20 07/03/20 06:59 14:59 22:59 Intake Total 100 / 1000 700 / 700 Output Total 1650 / 3050 600 / 600 Balance -1550 / -2050 100 / 100 Weight last 48 hrs Weight 120.656 kg Weight 121.109 kg Physical Exam Const: COMMON NORMALS: no acute distress, patient oriented x3 and alert ORIENTATION/CONSCIOUSNESS: Yes awake OTHER: HFC. HENMT: COMMON NORMALS: oropharynx normal Neck/C-Spine: COMMON NORMALS: negative for no JVD Resp: COMMON NORMALS: normal respiratory effort AUSCULTATION: diminished lung sounds OTHER: No significant crackles today. Cardio: COMMON NORMALS: regular rhythm, S1 normal heart sound present, S2 norm al heart sound present and No murmurs present (Cardio); negative for no JVD RHYTHM: regular rhythm HEART SOUNDS: S1 normal heart sound present and S2 normal heart sound present GI: COMMON NORMALS: Normal to inspection, nondistended, normoactive bowel sounds present, Soft to palpation and non-tender PALPATION: Yes Soft to palpation Extremity: COMMON NORMALS: no joint enlargement GENERAL: Yes edema (Trace pedal edema) Neuro: COMMON NORMALS: patient oriented x3 and moves all extremities SENSORIUM/ORIENTATION: Yes alert Skin: COMMON NORMALS: no rashes or lesions noted GENERAL SKIN EXAM: no rashes or lesions noted Urinary Catheter Management^: Aburto Latex Free: Cath Placed During This Visit: yes Reason for Continuing Indwelling Catheter: Acute Urinary Retention or Obstruction Urinary Catheter Date of Insertion: 06/18/20 Urinary Catheter Time of Insertion: 10:20 Data : 07/03/20 04:00 07/03/20 04:00 A&P Assessment and plan (1) Acute respiratory failure with hypoxia: She stayed on high flow cannula most of the day yesterday, on CPAP support overnight, and back to high flow cannula this morning. 90% FiO2. Saturation in high 80s. CRP and D-dimer appear to be further decreasing. She is doing a little bit of bed level work with flexing her arms. Limited reserve. No crackles today. Weight down to 120 kg. We will go ahead and change for now to Lasix daily. Continue remdesivir, empiric antibiotics, Decadron today. We will touch base with pulmonology on reassessment tomorrow. Revisit consideration of and timing of possible tracheostomy. Pulmonary toilet. Flonase. Continue midlevel exercises as tolerating. Will check magnesium, phosphorus. -CTA chest: 1. No evidence for pulmonary embolus. 2. Multilobar peripheral ground-glass opacities, typical of COVID-19 pneumonia. This pattern can also be seen with influenza pneumonia and organizing pneumonia -cardiac echo shows: LV systolic function is grossly normal. Regional wall motion abnormalities can not be assessed because of poor visualization Grade 1 diastolic dysfunction Completed remdesivir. Completed convalescent plasma. Status: Acute (2) Pneumonia due to COVID-19 virus: Severe/life-threatening COVID-19 pneumonia as above. Status: Acute (3) Secondary bacterial pneumonia: Possible superimposed bacterial pneumonia as above. Status: Acute (4) Atrial fibrillation with RVR: Continue Cardizem. As needed metoprolol pushes. Lovenox. Status: Acute (5) Diarrhea: Resolved. Stool studies negative. Status: Acute Additional A&P Information Hyperkalemia: Improved. Lasix. Low potassium diet. Oropharyngeal candidiasis: nystatin swish and swallow, Diflucan for 7-day course because of oral thrush. Transaminitis: Most likely secondary to worsening COVID-19 pneumonia ARDS. Continue with supportive therapy. Continue to monitor liver numbers daily. Continue attempts to wean down oxygen support, wean off BiPAP dependence, optimization of volume status/adjustment of diuretic therapy, steroid, antibiotic, anticoagulation, attempts for mobilization. Attestations Medical Necessity Statement*: Continue admission for respiratory failure with hypoxia, severe COVID-19. Coding Level of Care Code Acute Utilities Estimator And Drafter for [facility] Diagnoses Acute respiratory failure with hypoxia J96.01 Pneumonia due to COVID-19 virus U07.1; J12.89 Secondary bacterial pneumonia J15.9 Atrial fibrillation with RVR I48.91 Diarrhea R19.7
--- NOTE | 2020-07-03 19:17 | PC.NURSE ---
Received bed side shift report from off going nurse. Pt's plan of care reviewed. Pt resting in bed. Pt appears to be concentrating more on her breathing than last night. Pt denies any more difficulty with breathing than usual. Pt continues to sat in the mid 80's on high-flow at 50LPM/90% Fi02. Pt denies any pains or concerns at this time. Bed in lowest and locked position, call light and water within reach, x's 3 rails up. Will continue to monitor pt.
[2020-07-03] MEDS: ALPRAZolam 0.25 mg Tablet 0.5 MG PO (20:00)
[2020-07-03] MEDS: LORazepam 2 mg/mL INJ 1 mL 0.5 MG IVP (20:44)
[2020-07-04] VITALS (40 sets, daily range): BP systolic 95–144; BP diastolic 55–104; PULSE 71–111; RESP 14–36; TEMP 36.6–37.1; O2SAT 81–93; BMI 43.6
[2020-07-04] MEDS: ipratropium-albuterol 3 mL Neb INHALATION ×6 (00:14→20:36)
[2020-07-04] MEDS: dilTIAZem 60 mg Tablet 90 MG PO ×4 (05:48→23:18)
[2020-07-04 06:21] LABS: Alanine Aminotransferase 43 U/L (0-33); Albumin Level 2.6 g/dL (3.5-5.2); Alkaline Phosphatase 171 IU/L (35-105); Anion Gap 11.2 (5-19); Aspartate Amino Transferase 26 U/L (0-32); Blood Urea Nitrogen 28 mg/dL (8-23); Calcium 8.7 mg/dL (8.5-10.5); Carbon Dioxide 34 mmol/L (22-29); Chloride 98 mmol/L (98-107); Globulin 2.8 g/dL (1.3-4.6); Glucose 127 mg/dL (65-115); Osmolality Calculated 295 mOsm/kg (285-295); Potassium 4.2 mmol/L (3.5-5.1); Sodium 139 mmol/L (136-145); Total Bilirubin 0.4 mg/dL (0.15-1.2); Total Protein 5.4 g/dL (6.6-8.7)
[2020-07-04 06:24] LABS: C Reactive Protein 6.9 mg/L (0.0-4.9); Magnesium 2.3 mg/dL (1.7-2.3); Phosphorus 3.9 mg/dL (2.5-4.5)
[2020-07-04 06:29] LABS: Basophils % 0.2 %; Eosinophils % 0.1 %; Hemoglobin 12.3 g/dL (11.5-15.3); Lymphocytes # 0.5 10^3/uL (0.8-4.8); Lymphocytes % 3.5 %; Mean Corpuscular HGB Conc 33.2 g/dL (30.0-36.0); Mean Corpuscular Hemoglobin 28.8 pg (28.0-34.0); Mean Corpuscular Volume 86.7 fL (81-99); Mean Platelet Volume 10.7 fL (7.4-10.4); Monocytes # 0.3 10^3/uL (0.2-0.9); Monocytes % 2.1 %; Neutrophils # 14.24 10^3/uL (1.8-7.7); Neutrophils % 92.7 %; Nucleated Red Blood Cells % 0 %; Platelet Count 263 10^3/cmm (130-400); Red Blood Count 4.27 10^6/uL (4.1-5.3); Red Cell Distribution Width 14.1 % (12.1-15.1); White Blood Count 15.4 10^3/uL (4.0-10.0)
[2020-07-04 06:38] LABS: Creatinine Clr Calc Pharmacy 82.7828
[2020-07-04] MEDS: FUROsemide 10 mg/mL SDV 4mL 40 MG IVP (07:20)
[2020-07-04] MEDS: vancomycin 1,500 MG/300 ML PIGGYBACK 250 MG IV (07:20)
[2020-07-04] MEDS: budesonide 0.5 mg/2 mL Neb INHALATION ×2 (07:59→20:36)
[2020-07-04] MEDS: benzonatate 100 mg Capsule PO ×3 (08:38→20:54)
[2020-07-04] MEDS: ascorbic acid 500 mg Tablet 1000 MG PO ×2 (08:38→17:43)
[2020-07-04] MEDS: nystatin 100,000 unit/mL UDC 5 mL 500000 UNIT PO ×4 (08:38→20:55)
[2020-07-04] MEDS: fluconazole 100 mg Tablet PO (08:39)
[2020-07-04] MEDS: zinc gluconate 50 mg Tablet PO (08:46)
[2020-07-04] MEDS: pantoprazole DR 40 mg Tablet PO (08:46)
[2020-07-04] MEDS: enoxaparin 120 mg/0.8 mL Syringe SUBCUT ×2 (09:38→21:12)
[2020-07-04] MEDS: fluticasone nasal spray 16gm Btl 2 SPRAY NASAL (09:38)
[2020-07-04] MEDS: ALPRAZolam 0.25 mg Tablet 0.5 MG PO ×2 (13:08→20:54)
--- NOTE | 2020-07-04 15:25 | PC.OT ---
OT tx attempted. Pt currently proned and unable to tolerate OT tx secondary to high O2 needs. Will re-attempt tomorrow.
[2020-07-04] MEDS: dexamethasone 4 mg/mL INJ 6 MG IVP (15:44)
[2020-07-04] MEDS: morphine 4 mg/mL SDV 1 mL 1 MG IVP ×2 (16:37→20:54)
[2020-07-04 19:14] LABS: Vancomycin Trough 20.3 ug/mL (10-15)
--- NOTE | 2020-07-04 20:33 | P.PN_ITS ---
Subjective Subjective: Interval history: She is trying to take a nap, somewhat bothered by light, so is covering her face with a bed sheet, otherwise denies chest pain or pressure. No headache. No diarrhea today. Mouth is somewhat dry. Daughter noticed that is taking her longer time to swallow things and appetite has not been optimal. Vitals/I&O/Wt Last Vital Signs Temp 98.7 F 07/04/20 16:00 Pulse 84 07/04/20 18:01 Resp 21 H 07/04/20 18:01 BP 137/81 07/04/20 18:01 Pulse Ox 89 L 07/04/20 18:01 07/04/20 07/04/20 07/04/20 06:59 14:59 22:59 Intake Total 100 / 2320 1120 / 1120 340 / 1460 Output Total 600 / 1700 1425 / 1425 175 / 1600 Balance -500 / 620 -305 / -305 165 / -140 Weight last 48 hrs Weight 120.741 kg Weight 120.656 kg Physical Exam Const: COMMON NORMALS: no acute distress, patient oriented x3 and alert ORIENTATION/CONSCIOUSNESS: Yes awake OTHER: HFC. HENMT: COMMON NORMALS: oropharynx normal Neck/C-Spine: COMMON NORMALS: negative for no JVD Resp: COMMON NORMALS: normal respiratory effort AUSCULTATION: diminished lung sounds OTHER: Minimal if any crackles at bases. Cardio: COMMON NORMALS: regular rhythm, S1 normal heart sound present, S2 normal heart sound present and No murmurs present (Cardio); negative for no JVD RHYTHM: regular rhythm HEART SOUNDS: S1 normal heart sound present and S2 normal heart sound present GI: COMMON NORMALS: Normal to inspection, nondistended, normoactive bowel sounds present, Soft to palpation and non-tender PALPATION: Yes Soft to palpation Extremity: COMMON NORMALS: no joint enlargement GENERAL: Yes edema (Trace pedal edema) Neuro: COMMON NORMALS: patient oriented x3 and moves all extremities SENSO RIUM/ORIENTATION: Yes alert Skin: COMMON NORMALS: no rashes or lesions noted GENERAL SKIN EXAM: no rashes or lesions noted Urinary Catheter Management^: Aburto Latex Free: Cath Placed During This Visit: yes Reason for Continuing Indwelling Catheter: Accurate Measurement of Urinary Output in Critically Ill Patients Urinary Catheter Date of Insertion: 06/18/20 Urinary Catheter Time of Insertion: 10:20 Data : 07/04/20 05:42 07/04/20 05:42 A&P Assessment and plan (1) Acute respiratory failure with hypoxia: Today on high flow FiO2 wean down as low as 85% for some time, however, it increased again to 95% and then 100 she is appear to get somewhat tired though not enough to transition to CPAP. Discussed with pulmonology. At this time will discontinue IV antibiotics as she had completed the course. For now continue steroid. Continue supportive care weaning oxygenation as tolerating. Mobilize as tolerating. Briefly discussed utility of tracheostomy, will at this time benefits are not told to outweigh the risks. Also discussed with her daughter who is in agreement. Continue Lasix daily. CRP and D-dimer appear to be further decreasing. She is doing a little bit of bed level work with flexing her arms. Limited reserve. Continue remdesivir, empiric antibiotics, Decadron today. We will touch base with pulmonology on reassessment tomorrow. Revisit consideration of and timing of possible tracheostomy. Pulmonary toilet. Flonase. Continue midlevel exercises as tolerating. Will check magnesium, phosphorus. -CTA chest: 1. No evidence for pulmonary embolus. 2. Multilobar peripheral ground-glass opacities, typical of COVID-19 pneumonia. This pattern can also be seen with influenza pneumonia and organizing pneumonia -cardiac echo shows: LV systolic function is grossly normal. Regional wall motion abnormalities can not be assessed because of poor visualization Grade 1 diastolic dysfunction Completed remdesivir. Completed convalescent plasma. Status: Acute (2) Pneumonia due to COVID-19 virus: Severe/life-threatening COVID-19 pneumonia as above. Status: Acute (3) Secondary bacterial pneumonia: Discontinue antibiotics. Monitor. Status: Acute (4) Atrial fibrillation with RVR: Heart rates have been good. Continue Cardizem. As needed metoprolol pushes. Lovenox. Status: Acute (5) Diarrhea: Resolved. Stool studies negative. Status: Acute Additional A&P Information Hyperkalemia: Improved. Lasix. Low potassium diet. Oropharyngeal candidiasis: nystatin swish and swallow, Diflucan for 7-day course because of oral thrush. Oropharyngeal dysphagia: Speech therapy assessment. Perhaps due to dry oral mucosa from CPAP. High flow cannula as tolerating. Transaminitis: Improving. Continue to monitor liver numbers daily. Continue attempts to wean down oxygen support, wean off BiPAP dependence, optimization of volume status/adjustment of diuretic therapy, steroid, anticoagulation, discontinue antibiotics, continue attempts for mobilization. Attestations Medical Necessity Statement*: Continue management of severe hypoxic respiratory failure, severe COVID-19 infection. Coding Level of Care Code Acute Die Cutting Machine Operator for [facility] Diagnoses Acute respiratory failure with hypoxia J96.01 Pneumonia due to COVID-19 virus U07.1; J12.89 Secondary bacterial pneumonia J15.9 Atrial fibrillation with RVR I48.91 Diarrhea R19.7
[2020-07-05] VITALS (44 sets, daily range): BP systolic 116–174; BP diastolic 68–109; PULSE 79–106; RESP 16–57; TEMP 36.3–36.9; O2SAT 83–97; BMI 42.5
[2020-07-05] MEDS: ipratropium-albuterol 3 mL Neb INHALATION ×7 (00:10→23:25)
[2020-07-05 02:55] LABS: Basophils # 0.1 10^3/uL (0.0-0.1); Basophils % 0.2 %; Hematocrit 39.8 % (37.0-47.0); Hemoglobin 13.1 g/dL (11.5-15.3); Lymphocytes # 0.5 10^3/uL (0.8-4.8); Lymphocytes % 2.1 %; Mean Corpuscular HGB Conc 32.9 g/dL (30.0-36.0); Mean Corpuscular Hemoglobin 28.7 pg (28.0-34.0); Mean Corpuscular Volume 87.3 fL (81-99); Mean Platelet Volume 10.9 fL (7.4-10.4); Monocytes # 0.3 10^3/uL (0.2-0.9); Monocytes % 1.3 %; Neutrophils # 21.29 10^3/uL (1.8-7.7); Neutrophils % 94.7 %; Nucleated Red Blood Cells % 0 %; Platelet Count 304 10^3/cmm (130-400); Red Blood Count 4.56 10^6/uL (4.1-5.3); Red Cell Distribution Width 14.2 % (12.1-15.1); White Blood Count 22.5 10^3/uL (4.0-10.0)
[2020-07-05 03:33] LABS: Alanine Aminotransferase 50 U/L (0-33); Alkaline Phosphatase 177 IU/L (35-105); Anion Gap 13.1 (5-19); Aspartate Amino Transferase 33 U/L (0-32); Blood Urea Nitrogen 32 mg/dL (8-23); Calcium 9.1 mg/dL (8.5-10.5); Carbon Dioxide 33 mmol/L (22-29); Chloride 96 mmol/L (98-107); Creatinine Clr Calc Pharmacy 82.7828; Globulin 2.8 g/dL (1.3-4.6); Glucose 142 mg/dL (65-115); Osmolality Calculated 295 mOsm/kg (285-295); Potassium 4.1 mmol/L (3.5-5.1); Sodium 138 mmol/L (136-145); Total Bilirubin 0.3 mg/dL (0.15-1.2); Total Protein 5.8 g/dL (6.6-8.7)
[2020-07-05] MEDS: dilTIAZem 60 mg Tablet 90 MG PO ×4 (05:00→22:15)
[2020-07-05] MEDS: FUROsemide 10 mg/mL SDV 4mL 40 MG IVP (06:39)
[2020-07-05] MEDS: pantoprazole DR 40 mg Tablet PO (08:10)
[2020-07-05] MEDS: fluticasone nasal spray 16gm Btl 2 SPRAY NASAL ×2 (08:10→17:08)
[2020-07-05] MEDS: benzonatate 100 mg Capsule PO (08:10)
[2020-07-05] MEDS: ascorbic acid 500 mg Tablet 1000 MG PO ×2 (08:10→17:08)
[2020-07-05] MEDS: fluconazole 100 mg Tablet PO (08:11)
[2020-07-05] MEDS: zinc gluconate 50 mg Tablet PO (08:11)
[2020-07-05] MEDS: nystatin 100,000 unit/mL UDC 5 mL 500000 UNIT PO ×4 (08:11→21:30)
[2020-07-05] MEDS: budesonide 0.5 mg/2 mL Neb INHALATION ×2 (08:32→20:30)
[2020-07-05] MEDS: enoxaparin 120 mg/0.8 mL Syringe SUBCUT ×2 (10:57→22:15)
--- NOTE | 2020-07-05 11:13 | PC.SOCIAL ---
IMM Not Updated Pg. 2 of IMM not updated, do not anticipate d/c within the next 48hours.
[2020-07-05] MEDS: dexamethasone 4 mg/mL INJ 6 MG IVP (16:43)
--- NOTE | 2020-07-05 18:57 | PM.PN ---
Subjective Subjective: Interval history: She says she is doing all right. Denies any pain or pressure in her chest. No headache. No nausea vomiting or diarrhea. Says she is doing all right in the room she is in. So the nurses have been turning on the light for to indicate daytime, turning off for the night. Vitals/I&O/Wt Last Vital Signs Temp 98.5 F 07/05/20 12:00 Pulse 100 07/05/20 18:01 Resp 26 H 07/05/20 18:01 BP 138/86 07/05/20 18:01 Pulse Ox 84 L 07/05/20 18:01 07/05/20 07/05/20 07/05/20 06:59 14:59 22:59 Intake Total 480 / 2670 600 / 600 480 / 1080 Output Total 650 / 2925 450 / 450 Balance -170 / -255 600 / 600 30 / 630 Weight last 48 hrs Weight 117.651 kg Weight 120.741 kg Physical Exam Const: COMMON NORMALS: no acute distress, patient oriented x3 and alert ORIENTATION/CONSCIOUSNESS: Yes awake OTHER: HFC. Limited reserve. HENMT: COMMON NORMALS: oropharynx normal Neck/C-Spine: COMMON NORMALS: negative for no JVD Resp: COMMON NORMALS: normal respiratory effort AUSCULTATION: diminished lung sounds OTHER: Minimal if any crackles at bases. Cardio: COMMON NORMALS: regular rhythm, S1 normal heart sound present, S2 normal heart sound present and No murmurs present (Cardio); negative for no JVD RHYTHM: regular rhythm HEART SOUNDS: S1 normal heart sound present and S2 normal heart sound present GI: COMMON NORMALS: Normal to inspection, nondistended, normoactive bowel sounds present, Soft to palpation and non-tender PALPATION: Yes Soft to palpation Extremity: COMMON NORMALS: no joint enlargement GENERAL: Yes edema (Trace pedal edema) Neuro: COMMON NORMALS: patient oriented x3 and moves all extremities SENSORIUM/ORIENTATION: Yes alert Skin: COMMON NORMALS: no rashes or lesions noted GENERAL SKIN EXAM: no rashes or lesions noted Urinary Catheter Management^: Aburto Latex Free: Cath Placed During This Visit: yes Reason for Continuing Indwelling Catheter: Accurate Measurement of Urinary Output in Critically Ill Patients Urinary Catheter Date of Insertion: 06/18/20 Urinary Catheter Time of Insertion: 10:20 Data : 07/05/20 02:20 07/05/20 02:20 A&P Assessment and plan (1) Acute respiratory failure with hypoxia: She said a while and year today. Still has very limited reserve. 5 to requirement state 90-95% through the day. In the evening we will bit better 85%. We have discontinued antibiotics. She does have a white count coming up somewhat today to 22,000. Afebrile. Denies any other changes in her condition. We will repeat chest x-ray in the morning to reassess. Low threshold to restart antibiotics. Continue Decadron as per discussion with pulmonology. Continue to attempt to wean down oxygen. If doing a little bit better consideration may be given to Oxipendant. Per discussion for now tracheostomy benefits are considered limited per discussion with pulmonary. Continue Lasix daily. Monitor renal function, volume status. Discussed with her daughter. CRP and D-dimer appear to be further decreasing. Recheck. She is trying a little bit of bed level work with flexing her arms. Limited reserve. -CTA chest: 1. No evidence for pulmonary embolus. 2. Multilobar peripheral ground-glass opacities, typical of COVID-19 pneumonia. This pattern can also be seen with influenza pneumonia and organizing pneumonia -cardiac echo shows: LV systolic function is grossly normal. Regional wall motion abnormalities can not be assessed because of poor visualization Grade 1 diastolic dysfunction Completed remdesivir. Completed convalescent plasma. Status: Acute (2) Pneumonia due to COVID-19 virus: Severe/life-threatening COVID-19 pneumonia as above. Status: Acute (3) Secondary bacterial pneumonia: Discontinue antibiotics. Monitor. Status: Acute (4) Atrial fibrillation with RVR: Heart rates have been good. Continue Cardizem. As needed metoprolol pushes. Lovenox. Status: Acute (5) Diarrhea: Resolved. Stool studies negative. Status: Acute Additional A&P Information Hyperkalemia: Improved. Lasix. Low potassium diet. Dysphagia: with dry mouth, candidiasis. Appreciate ST recommendations. Oropharyngeal candidiasis: nystatin swish and swallow, for now continue Diflucan with persistent candidiasis. Transaminitis: Improving. Continue to monitor liver numbers daily. Continue attempts to wean down oxygen support, wean off BiPAP dependence, optimization of volume status, monitoring off antibiotics, assessment of dysphagia, continue attempts for mobilization. Attestations Medical Necessity Statement*: Continue assessment and management of hypoxic respiratory failure, severe COVID Coding Level of Care Code Acute Meat Scrubber for [facility] Diagnoses Acute respiratory failure with hypoxia J96.01 Pneumonia due to COVID-19 virus U07.1; J12.89 Secondary bacterial pneumonia J15.9 Atrial fibrillation with RVR I48.91 Diarrhea R19.7
[2020-07-05] MEDS: morphine 4 mg/mL SDV 1 mL 1 MG IVP (22:15)
[2020-07-05] MEDS: ALPRAZolam 0.25 mg Tablet 0.5 MG PO (22:17)
[2020-07-06] VITALS (39 sets, daily range): BP systolic 119–198; BP diastolic 76–114; PULSE 74–107; RESP 16–40; TEMP 36.2–37.2; O2SAT 82–91; BMI 42.5
[2020-07-06 02:54] LABS: Basophils % 0.2 %; Eosinophils % 0.1 %; Hematocrit 35.7 % (37.0-47.0); Lymphocytes # 0.5 10^3/uL (0.8-4.8); Lymphocytes % 2.9 %; Mean Corpuscular HGB Conc 33.6 g/dL (30.0-36.0); Mean Corpuscular Volume 86.2 fL (81-99); Monocytes # 0.2 10^3/uL (0.2-0.9); Monocytes % 1.1 %; Neutrophils % 94.1 %; Nucleated Red Blood Cells % 0 %; Platelet Count 274 10^3/cmm (130-400); Red Blood Count 4.14 10^6/uL (4.1-5.3); Red Cell Distribution Width 14.4 % (12.1-15.1); White Blood Count 17.4 10^3/uL (4.0-10.0)
[2020-07-06 03:16] LABS: D Dimer 1.02 ug/mIFEU (0-0.59)
[2020-07-06 03:20] LABS: Alanine Aminotransferase 39 U/L (0-33); Albumin Level 2.6 g/dL (3.5-5.2); Alkaline Phosphatase 144 IU/L (35-105); Anion Gap 12.4 (5-19); Aspartate Amino Transferase 23 U/L (0-32); Blood Urea Nitrogen 31 mg/dL (8-23); Calcium 8.8 mg/dL (8.5-10.5); Carbon Dioxide 32 mmol/L (22-29); Chloride 95 mmol/L (98-107); Globulin 2.6 g/dL (1.3-4.6); Glucose 157 mg/dL (65-115); Osmolality Calculated 290 mOsm/kg (285-295); Potassium 4.4 mmol/L (3.5-5.1); Sodium 135 mmol/L (136-145); Total Bilirubin 0.3 mg/dL (0.15-1.2); Total Protein 5.2 g/dL (6.6-8.7)
[2020-07-06 03:21] LABS: C Reactive Protein 15.2 mg/L (0.0-4.9)
[2020-07-06] MEDS: ipratropium-albuterol 3 mL Neb INHALATION ×5 (03:26→19:55)
[2020-07-06] MEDS: dilTIAZem 60 mg Tablet 90 MG PO ×4 (04:57→21:43)
[2020-07-06] MEDS: FUROsemide 10 mg/mL SDV 4mL 40 MG IVP (06:00)
[2020-07-06] MEDS: budesonide 0.5 mg/2 mL Neb INHALATION ×2 (08:05→19:55)
[2020-07-06] MEDS: pantoprazole DR 40 mg Tablet PO (08:07)
[2020-07-06] MEDS: fluconazole 100 mg Tablet PO (08:07)
[2020-07-06] MEDS: zinc gluconate 50 mg Tablet PO (08:07)
[2020-07-06] MEDS: ascorbic acid 500 mg Tablet 1000 MG PO ×2 (08:07→17:46)
[2020-07-06] MEDS: nystatin 100,000 unit/mL UDC 5 mL 500000 UNIT PO ×4 (08:08→21:43)
[2020-07-06] MEDS: fluticasone nasal spray 16gm Btl 2 SPRAY NASAL ×2 (08:08→17:46)
[2020-07-06] MEDS: morphine 4 mg/mL SDV 1 mL 1 MG IVP ×3 (08:50→22:24)
--- NOTE | 2020-07-06 09:44 | PM.PN ---
Subjective Subjective: Interval history: Patient continues to be short of breath especially with conversation. She is on 45% FiO2 saturating in the mid 80s. She appeared dyspneic on exam and was trying not to talk although did ask me how she was sounding. Last night was the first time she did not use BiPAP. She continues to have significant leukocytosis which is likely related to steroids which she has been since June 16. She has been eating minimally but drinking fluids okay. She is tachycardic but in normal sinus rhythm. C-reactive protein increased to 15.2. She had no evidence of PE and is on therapeutic anticoagulation with Lovenox. Medications: Reviewed: Yes Vitals/I&O/Wt Last Vital Signs Temp 97.2 F L 07/06/20 06:00 Pulse 91 07/06/20 08:14 Resp 22 H 07/06/20 08:09 BP 131/99 07/06/20 07:00 Pulse Ox 85 L 07/06/20 08:09 07/05/20 07/06/20 07/06/20 22:59 06:59 14:59 Intake Total 1210 / 1810 200 / 2010 Output Total 1400 / 1400 1000 / 2400 Balance -190 / 410 -800 / -390 Weight last 48 hrs Weight 117.651 kg Weight 117.651 kg Physical Exam Const: COMMON NORMALS: patient oriented x3 Resp: OTHER: Bibasilar Rales. Appears to be dyspneic even at rest. Cardio: COMMON NORMALS: regular rate, regular rhythm and S2 normal heart sound present RATE: regular rate RHYTHM: regular rhythm HEART SOUNDS: S2 normal heart sound present OTHER: No lower extremity edema GI: COMMON NORMALS: Normal to inspection, nondistended, normoactive bowel sounds present, Soft to palpation and non-tender PALPATION: Yes Soft to palpation Neuro: COMMON NORMALS: patient oriented x3 and no focal motor deficits Urinary Catheter Management^: Aburto Latex Free: Cath Placed During This Visit: yes Reason for Continuing Indwelling Catheter: Accurate Measurement of Urinary Output in Critically Ill Patients Urinary Catheter Date of Insertion: 06/18/20 Urinary Catheter Time of Insertion: 10:20 Data : 07/06/20 02:30 07/06/20 02:30 A&P Assessment and plan (1) Acute respiratory failure with hypoxia: She said a while and year today. Still has very limited reserve. 5 to requirement state 90-95% through the day. In the evening we will bit better 85%. We have discontinued antibiotics. She does have a white count coming up somewhat today to 22,000. Afebrile. Denies any other changes in her condition. We will repeat chest x-ray in the morning to reassess. Low threshold to restart antibiotics. Continue Decadron as per discussion with pulmonology. Continue to attempt to wean down oxygen. If doing a little bit better consideration may be given to Oxipendant. Per discussion for now tracheostomy benefits are considered limited per discussion with pulmonary. Continue Lasix daily. Monitor renal function, volume status. Discussed with her daughter. CRP and D-dimer appear to be further decreasing. Recheck. She is trying a little bit of bed level work with flexing her arms. Limited reserve. -CTA chest: 1. No evidence for pulmonary embolus. 2. Multilobar peripheral ground-glass opacities, typical of COVID-19 pneumonia. This pattern can also be seen with influenza pneumonia and organizing pneumonia -cardiac echo shows: LV systolic function is grossly normal. Regional wall motion abnormalities can not be assessed because of poor visualization Grade 1 diastolic dysfunction Completed remdesivir. Completed convalescent plasma. Status: Acute (2) Pneumonia due to COVID-19 virus: Severe/life-threatening COVID-19 pneumonia as above. Status: Acute (3) Secondary bacterial pneumonia: Discontinue antibiotics. Monitor. Status: Acute (4) Atrial fibrillation with RVR: Heart rates have been good. Continue Cardizem. As needed metoprolol pushes. Lovenox. Status: Acute (5) Diarrhea: Resolved. Stool studies negative. Status: Acute Additional A&P Information Hyperkalemia: Improved. Lasix. Low potassium diet. Dysphagia: with dry mouth, candidiasis. Appreciate ST recommendations. Oropharyngeal candidiasis: nystatin swish and swallow, for now continue Diflucan with persistent candidiasis. Transaminitis: Improving. Continue to monitor liver numbers daily. Continue attempts to wean down oxygen support, wean off BiPAP dependence, optimization of volume status, monitoring off antibiotics, assessment of dysphagia, continue attempts for mobilization. PLAN: Will discontinue dexamethasone as it would likely improve patient's oropharyngeal candidiasis and dysphagia. Discussed with RN and we will increase patient's FiO2 to 50% for now to get her sats closer to 90 as she is clinically appears to be in distress. Continue Cardizem for rate control. Since patient clinically is not improving I will treat patient with 1 more course of remdesivir. Continue therapeutic anticoagulation for now. Encouraged oral intake. 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
[2020-07-06] MEDS: remdesivir 200 MG in sodium chloride 0.9% (100 ml) 100 ML 100 MG IV (10:50)
[2020-07-06] MEDS: enoxaparin 120 mg/0.8 mL Syringe SUBCUT ×2 (10:50→21:43)
[2020-07-06] MEDS: ALPRAZolam 0.25 mg Tablet 0.5 MG PO ×2 (10:56→21:42)
--- NOTE | 2020-07-06 11:07 | XR_ITS ---
WS: [id number] XR chest 1V portable [id number] REASON FOR EXAM: dyspnea FINDINGS: There does not appear to been significant interval change in the appearance of the chest compared to 06/28 and 06/30/2020. There is a diffuse hazy interstitial density throughout both lungs. No new findings. XR/XR chest 1V portable [id number] IMPRESSION: No significant change in the diffuse lung abnormality.
[2020-07-06] MEDS: metoprolol tartrate 1 mg/1 mL SDV 5 mL 5 MG IV (20:45)
[2020-07-07] VITALS (38 sets, daily range): BP systolic 118–170; BP diastolic 72–111; PULSE 73–100; RESP 15–45; TEMP 36.6–37.1; O2SAT 86–95
[2020-07-07] MEDS: ipratropium-albuterol 3 mL Neb INHALATION ×7 (00:05→23:36)
[2020-07-07] MEDS: ketorolac 30 mg/mL INJ 15 MG IVP (00:30)
[2020-07-07 04:16] LABS: Basophils # 0.1 10^3/uL (0.0-0.1); Basophils % 0.2 %; Eosinophils # 0.3 10^3/uL (0.0-0.8); Eosinophils % 1.2 %; Hematocrit 38.1 % (37.0-47.0); Hemoglobin 12.3 g/dL (11.5-15.3); Lymphocytes # 0.9 10^3/uL (0.8-4.8); Mean Corpuscular HGB Conc 32.3 g/dL (30.0-36.0); Mean Corpuscular Hemoglobin 28.9 pg (28.0-34.0); Mean Corpuscular Volume 89.4 fL (81-99); Mean Platelet Volume 11.2 fL (7.4-10.4); Monocytes # 0.4 10^3/uL (0.2-0.9); Monocytes % 1.8 %; Neutrophils % 91.6 %; Nucleated Red Blood Cells % 0 %; Platelet Count 267 10^3/cmm (130-400); Red Blood Count 4.26 10^6/uL (4.1-5.3); Red Cell Distribution Width 14.8 % (12.1-15.1); White Blood Count 22.2 10^3/uL (4.0-10.0)
[2020-07-07 04:39] LABS: Alanine Aminotransferase 43 U/L (0-33); Albumin Level 2.8 g/dL (3.5-5.2); Alkaline Phosphatase 148 IU/L (35-105); Anion Gap 11.1 (5-19); Aspartate Amino Transferase 30 U/L (0-32); Blood Urea Nitrogen 45 mg/dL (8-23); Calcium 9.3 mg/dL (8.5-10.5); Carbon Dioxide 37 mmol/L (22-29); Chloride 96 mmol/L (98-107); Globulin 2.8 g/dL (1.3-4.6); Glucose 128 mg/dL (65-115); Osmolality Calculated 303 mOsm/kg (285-295); Potassium 4.1 mmol/L (3.5-5.1); Sodium 140 mmol/L (136-145); Total Bilirubin 0.5 mg/dL (0.15-1.2); Total Protein 5.6 g/dL (6.6-8.7)
[2020-07-07] MEDS: dilTIAZem 60 mg Tablet 90 MG PO ×4 (04:53→22:02)
[2020-07-07] MEDS: remdesivir 100 MG in sodium chloride 0.9% (100 ml) 100 ML IV (04:54)
[2020-07-07] MEDS: FUROsemide 10 mg/mL SDV 4mL 40 MG IVP (05:02)
--- NOTE | 2020-07-07 07:59 | PM.PN ---
Subjective Subjective: Interval history: Patient reports feeling slightly better. She is apparently been on 80% FiO2 yesterday and not 45% as I mentioned. I had extensive discussion with Avtar, respite therapist who was trying to decrease amount of oxygen patient receives but was unable to. Patient's oxygen saturation appears to be improving and she is saturating in the low 90s on 80% FiO2 this morning. Her lung exam appears to be slightly better but continues to have diffuse Rales. WBC again increased to 22.2. Hemoglobin and platelets remain stable. Medications: Reviewed: Yes Vitals/I&O/Wt Last Vital Signs Temp 97.9 F 07/07/20 04:00 Pulse 78 07/07/20 04:34 Resp 21 H 07/07/20 04:34 BP 138/73 07/07/20 04:00 Pulse Ox 91 07/07/20 04:34 07/06/20 07/07/20 07/07/20 22:59 06:59 14:59 Intake Total 100 / 700 200 / 900 Output Total 1350 / 1350 350 / 1700 Balance -1250 / -650 -150 / -800 Weight last 48 hrs Weight 117.651 kg Physical Exam Const: COMMON NORMALS: patient oriented x3 Resp: OTHER: Bibasilar Rales. Appears more comfortable. Cardio: COMMON NORMALS: regular rate, regular rhythm and S2 normal heart sound present RATE: regular rate RHYTHM: regular rhythm HEART SOUNDS: S2 normal heart sound present OTHER: No lower extremity edema GI: COMMON NORMALS: Normal to inspection, nondistended, normoactive bowel sounds present, Soft to palpation and non-tender PALPATION: Yes Soft to palpation Neuro: COMMON NORMALS: patient oriented x3 and no focal motor deficits Urinary Catheter Management^: Aburto Latex Free: Cath Placed During This Visit: yes Reason for Continuing Indwelling Catheter: Accurate Measurement of Urinary Output in Critically Ill Patients Urinary Catheter Date of Insertion: 06/18/20 Urinary Catheter Time of Insertion: 10:20 Data : 07/07/20 03:20 07/07/20 03:20 A&P Assessment and plan (1) Acute respiratory failure with hypoxia: She said a while and year today. Still has very limited reserve. 5 to requirement state 90-95% through the day. In the evening we will bit better 85%. We have discontinued antibiotics. She does have a white count coming up somewhat today to 22,000. Afebrile. Denies any other changes in her condition. We will repeat chest x-ray in the morning to reassess. Low threshold to restart antibiotics. Continue Decadron as per discussion with pulmonology. Continue to attempt to wean down oxygen. If doing a little bit better consideration may be given to Oxipendant. Per discussion for now tracheostomy benefits are considered limited per discussion with pulmonary. Continue Lasix daily. Monitor renal function, volume status. Discussed with her daughter. CRP and D-dimer appear to be further decreasing. Recheck. She is trying a little bit of bed level work with flexing her arms. Limited reserve. -CTA chest: 1. No evidence for pulmonary embolus. 2. Multilobar peripheral ground-glass opacities, typical of COVID-19 pneumonia. This pattern can also be seen with influenza pneumonia and organizing pneumonia -cardiac echo shows: LV systolic function is grossly normal. Regional wall motion abnormalities can not be assessed because of poor visualization Grade 1 diastolic dysfunction Completed remdesivir. Completed convalescent plasma. Status: Acute (2) Pneumonia due to COVID-19 virus: Severe/life-threatening COVID-19 pneumonia as above. Status: Acute (3) Secondary bacterial pneumonia: Discontinue antibiotics. Monitor. Status: Acute (4) Atrial fibrillation with RVR: Heart rates have been good. Continue Cardizem. As needed metoprolol pushes. Lovenox. Status: Acute (5) Diarrhea: Resolved. Stool studies negative. Status: Acute Additional A&P Information Hyperkalemia: Improved. Lasix. Low potassium diet. Dysphagia: with dry mouth, candidiasis. Appreciate ST recommendations. Oropharyngeal candidiasis: nystatin swish and swallow, for now continue Diflucan with persistent candidiasis. Transaminitis: Improving. Continue to monitor liver numbers daily. Continue attempts to wean down oxygen support, wean off BiPAP dependence, optimization of volume status, monitoring off antibiotics, assessment of dysphagia, continue attempts for mobilization. PLAN: Continue current monitoring and treatment remdesivir. Gradually wean off oxygen as saturations permit. Attestations Medical Necessity Statement*: Patient with severe COVID-19 pneumonia and large oxygen demand requires close ICU monitoring and treatment. 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
[2020-07-07] MEDS: budesonide 0.5 mg/2 mL Neb INHALATION ×2 (08:20→20:35)
[2020-07-07] MEDS: nystatin 100,000 unit/mL UDC 5 mL 500000 UNIT PO ×4 (08:29→20:01)
[2020-07-07] MEDS: fluticasone nasal spray 16gm Btl 2 SPRAY NASAL (08:29)
[2020-07-07] MEDS: fluconazole 100 mg Tablet PO (08:29)
[2020-07-07] MEDS: enoxaparin 120 mg/0.8 mL Syringe SUBCUT ×2 (10:50→21:40)
--- NOTE | 2020-07-07 15:21 | PC.SOCIAL ---
*IMM* Not updated, PT is not DC in next 48 Hrs.
[2020-07-07] MEDS: dexamethasone 4 mg/mL INJ IVP (16:18)
--- NOTE | 2020-07-07 17:11 | PC.RESP ---
Physicians Tio and Abelino requested this RT place patient on a nasal pendant cannula. Took patient off of bipap, placed on pendant on 15lpm. Patient desaturated quickly to 68%. Patient placed back on bipap.
[2020-07-07] MEDS: morphine 4 mg/mL SDV 1 mL 1 MG IVP ×2 (19:23→23:59)
[2020-07-08] VITALS (42 sets, daily range): BP systolic 96–177; BP diastolic 54–107; PULSE 76–94; RESP 13–35; TEMP 36.4–36.6; O2SAT 83–96; BMI 42.0
[2020-07-08] MEDS: ALPRAZolam 0.25 mg Tablet 0.5 MG PO ×3 (00:55→17:35)
[2020-07-08] MEDS: morphine 4 mg/mL SDV 1 mL 2 MG IVP (01:45)
[2020-07-08] MEDS: ipratropium-albuterol 3 mL Neb INHALATION ×5 (03:16→19:42)
[2020-07-08] MEDS: morphine 4 mg/mL SDV 1 mL 1 MG IVP ×3 (04:10→19:50)
[2020-07-08] MEDS: dilTIAZem 60 mg Tablet 90 MG PO ×4 (04:11→22:53)
[2020-07-08] MEDS: remdesivir 100 MG in sodium chloride 0.9% (100 ml) 100 ML IV (05:05)
[2020-07-08] MEDS: FUROsemide 10 mg/mL SDV 4mL 40 MG IVP (05:50)
[2020-07-08] MEDS: budesonide 0.5 mg/2 mL Neb INHALATION ×2 (08:15→19:42)
[2020-07-08] MEDS: fluticasone nasal spray 16gm Btl 2 SPRAY NASAL (08:40)
[2020-07-08] MEDS: fluconazole 100 mg Tablet PO (08:41)
[2020-07-08] MEDS: nystatin 100,000 unit/mL UDC 5 mL 500000 UNIT PO ×4 (08:41→20:05)
[2020-07-08] MEDS: enoxaparin 120 mg/0.8 mL Syringe SUBCUT ×2 (09:20→21:25)
[2020-07-08 09:45] LABS: Basophils % 0.2 %; Eosinophils % 0.3 %; Hematocrit 38.9 % (37.0-47.0); Hemoglobin 12.7 g/dL (11.5-15.3); Lymphocytes # 0.8 10^3/uL (0.8-4.8); Lymphocytes % 4.9 %; Mean Corpuscular HGB Conc 32.6 g/dL (30.0-36.0); Mean Corpuscular Hemoglobin 29.2 pg (28.0-34.0); Mean Corpuscular Volume 89.4 fL (81-99); Mean Platelet Volume 11.5 fL (7.4-10.4); Monocytes # 0.3 10^3/uL (0.2-0.9); Monocytes % 2.1 %; Neutrophils # 14.27 10^3/uL (1.8-7.7); Neutrophils % 91.2 %; Nucleated Red Blood Cells % 0 %; Platelet Count 265 10^3/cmm (130-400); Red Blood Count 4.35 10^6/uL (4.1-5.3); Red Cell Distribution Width 14.7 % (12.1-15.1); White Blood Count 15.7 10^3/uL (4.0-10.0)
[2020-07-08 10:10] LABS: Alanine Aminotransferase 44 U/L (0-33); Albumin Level 2.8 g/dL (3.5-5.2); Alkaline Phosphatase 145 IU/L (35-105); Anion Gap 12.9 (5-19); Aspartate Amino Transferase 30 U/L (0-32); Blood Urea Nitrogen 40 mg/dL (8-23); Calcium 8.9 mg/dL (8.5-10.5); Carbon Dioxide 36 mmol/L (22-29); Chloride 92 mmol/L (98-107); Globulin 2.8 g/dL (1.3-4.6); Glucose 159 mg/dL (65-115); Osmolality Calculated 297 mOsm/kg (285-295); Potassium 3.9 mmol/L (3.5-5.1); Sodium 137 mmol/L (136-145); Total Bilirubin 0.4 mg/dL (0.15-1.2); Total Protein 5.6 g/dL (6.6-8.7)
--- NOTE | 2020-07-08 10:12 | P.PN_ITS ---
Subjective Subjective: Interval history: Patient reports feeling slightly better this morning. I have discussed with Dr. Roca yesterday and we will taper steroids down. We have tried Oxy pendant but patient could not tolerate it. She is on heated high flow, 80% saturating in the low 90s. I had discussion with patient's daughter yesterday. If patient does not improve over the weekend I think placement of tracheostomy would be appropriate. WBC improved. Medications: Reviewed: Yes Vitals/I&O/Wt Last Vital Signs Temp 98.5 F 07/07/20 07:01 Pulse 89 07/08/20 09:00 Resp 20 H 07/08/20 09:00 BP 167/87 07/08/20 04:00 Pulse Ox 90 07/08/20 09:00 07/07/20 07/08/20 07/08/20 22:59 06:59 14:59 Intake Total 100 / 700 445 / 1145 100 / 100 Output Total 925 / 925 700 / 1625 Balance -825 / -225 -255 / -480 100 / 100 Weight last 48 hrs Weight 116.29 kg Physical Exam Const: COMMON NORMALS: patient oriented x3 Resp: OTHER: Bibasilar Rales. Not in distress. Cardio: COMMON NORMALS: regular rate, regular rhythm and S2 normal heart sound present RATE: regular rate RHYTHM: regular rhythm HEART SOUNDS: S2 n ormal heart sound present OTHER: No lower extremity edema GI: COMMON NORMALS: Normal to inspection, nondistended, normoactive bowel sounds present, Soft to palpation and non-tender PALPATION: Yes Soft to palpation Neuro: COMMON NORMALS: patient oriented x3 and no focal motor deficits Urinary Catheter Management^: Aburto Latex Free: Cath Placed During This Visit: yes Reason for Continuing Indwelling Catheter: Accurate Measurement of Urinary Output in Critically Ill Patients Urinary Catheter Date of Insertion: 06/18/20 Urinary Catheter Time of Insertion: 10:20 Data : 07/08/20 08:30 07/08/20 09:35 A&P Assessment and plan (1) Acute respiratory failure with hypoxia: She said a while and year today. Still has very limited reserve. 5 to requirement state 90-95% through the day. In the evening we will bit better 85%. We have discontinued antibiotics. She does have a white count coming up somewhat today to 22,000. Afebrile. Denies any other changes in her condition. We will repeat chest x-ray in the morning to reassess. Low threshold to restart antibiotics. Continue Decadron as per discussion with pulmonology. Continue to attempt to wean down oxygen. If doing a little bit better consideration may be given to Oxipendant. Per discussion for now tracheostomy benefits are considered limited per discussion with pulmonary. Continue Lasix daily. Monitor renal function, volume status. Discussed with her daughter. CRP and D-dimer appear to be further decreasing. Recheck. She is trying a little bit of bed level work with flexing her arms. Limited reserve. -CTA chest: 1. No evidence for pulmonary embolus. 2. Multilobar peripheral ground-glass opacities, typical of COVID-19 pneumonia. This pattern can also be seen with influenza pneumonia and organizing pneumonia -cardiac echo shows: LV systolic function is grossly normal. Regional wall rodríguez on abnormalities can not be assessed because of poor visualization Grade 1 diastolic dysfunction Completed remdesivir. Completed convalescent plasma. Status: Acute (2) Pneumonia due to COVID-19 virus: Severe/life-threatening COVID-19 pneumonia as above. Status: Acute (3) Secondary bacterial pneumonia: Discontinue antibiotics. Monitor. Status: Acute (4) Atrial fibrillation with RVR: Heart rates have been good. Continue Cardizem. As needed metoprolol pushes. Lovenox. Status: Acute (5) Diarrhea: Resolved. Stool studies negative. Status: Acute Additional A&P Information Hyperkalemia: Improved. Lasix. Low potassium diet. Dysphagia: with dry mouth, candidiasis. Appreciate ST recommendations. Oropharyngeal candidiasis: nystatin swish and swallow, for now continue Diflucan with persistent candidiasis. Transaminitis: Improving. Continue to monitor liver numbers daily. Continue attempts to wean down oxygen support, wean off BiPAP dependence, optim ization of volume status, monitoring off antibiotics, assessment of dysphagia, continue attempts for mobilization. PLAN: Continue current monitoring and treatment with remdesivir and dexamethasone. Continue Lasix. It appears that the patient's oral intake is improving. Gradually wean off oxygen as saturations permit. Attestations Medical Necessity Statement*: Patient with severe hypoxic respiratory failure requires close ICU monitoring and treatment. 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
[2020-07-08] MEDS: pantoprazole DR 40 mg Tablet PO (10:59)
[2020-07-09] VITALS (33 sets, daily range): BP systolic 95–140; BP diastolic 58–87; PULSE 73–94; RESP 16–31; TEMP 36.5–36.9; O2SAT 84–97
[2020-07-09] MEDS: ipratropium-albuterol 3 mL Neb INHALATION ×5 (00:20→15:36)
[2020-07-09] MEDS: dilTIAZem 60 mg Tablet 90 MG PO ×2 (05:02→10:04)
[2020-07-09 05:14] LABS: Basophils % 0.3 %; Eosinophils # 0.9 10^3/uL (0.0-0.8); Eosinophils % 6.2 %; Hematocrit 35.5 % (37.0-47.0); Hemoglobin 11.5 g/dL (11.5-15.3); Lymphocytes # 0.8 10^3/uL (0.8-4.8); Lymphocytes % 5.3 %; Mean Corpuscular HGB Conc 32.4 g/dL (30.0-36.0); Mean Corpuscular Volume 89.6 fL (81-99); Mean Platelet Volume 11.8 fL (7.4-10.4); Monocytes # 0.3 10^3/uL (0.2-0.9); Monocytes % 1.7 %; Neutrophils # 12.29 10^3/uL (1.8-7.7); Neutrophils % 84.9 %; Nucleated Red Blood Cells % 0 %; Platelet Count 233 10^3/cmm (130-400); Red Blood Count 3.96 10^6/uL (4.1-5.3); Red Cell Distribution Width 14.5 % (12.1-15.1); White Blood Count 14.5 10^3/uL (4.0-10.0)
[2020-07-09 05:42] LABS: Alanine Aminotransferase 41 U/L (0-33); Albumin Level 2.7 g/dL (3.5-5.2); Alkaline Phosphatase 137 IU/L (35-105); Anion Gap 13.8 (5-19); Aspartate Amino Transferase 26 U/L (0-32); Blood Urea Nitrogen 36 mg/dL (8-23); Calcium 9.3 mg/dL (8.5-10.5); Carbon Dioxide 36 mmol/L (22-29); Chloride 90 mmol/L (98-107); Globulin 2.8 g/dL (1.3-4.6); Glucose 106 mg/dL (65-115); Magnesium 2.1 mg/dL (1.7-2.3); Osmolality Calculated 291 mOsm/kg (285-295); Potassium 3.8 mmol/L (3.5-5.1); Sodium 136 mmol/L (136-145); Total Bilirubin 0.5 mg/dL (0.15-1.2); Total Protein 5.5 g/dL (6.6-8.7)
[2020-07-09] MEDS: remdesivir 100 MG in sodium chloride 0.9% (100 ml) 100 ML IV (06:10)
[2020-07-09] MEDS: FUROsemide 10 mg/mL SDV 4mL 40 MG IVP (06:11)
[2020-07-09] MEDS: budesonide 0.5 mg/2 mL Neb INHALATION (08:08)
[2020-07-09] MEDS: enoxaparin 120 mg/0.8 mL Syringe SUBCUT (09:57)
[2020-07-09] MEDS: fluticasone nasal spray 16gm Btl 2 SPRAY NASAL (09:57)
[2020-07-09] MEDS: ALPRAZolam 0.25 mg Tablet 0.5 MG PO (09:58)
[2020-07-09] MEDS: pantoprazole DR 40 mg Tablet PO (09:58)
[2020-07-09] MEDS: fluconazole 100 mg Tablet PO (09:58)
[2020-07-09] MEDS: nystatin 100,000 unit/mL UDC 5 mL 500000 UNIT PO ×2 (09:58→12:01)
--- NOTE | 2020-07-09 10:32 | PM.PN ---
Subjective Subjective: Interval history: Patient reports feeling unchanged. She continues to require 80% FiO2 and her sats are in mid to high 80s. I had discussion with patient this morning regarding further plan of care. We have discussed that patient will benefit from tracheostomy as it appears that she is not improving and continues to require high flow oxygen. Patient reports that she will discuss this with her daughter and make that decision. Patient denies being depressed. She is just tired of her current situation. She previously mentioned to her daughter that she may consider nature take its course and I know daughter had extensive discussion with patient yesterday. White blood cell count appears to be trending down. Medications: Reviewed: Yes Vitals/I&O/Wt Last Vital Signs Temp 98.5 F 07/09/20 08:00 Pulse 83 07/09/20 08:15 Resp 24 H 07/09/20 08:15 BP 136/64 07/09/20 06:01 Pulse Ox 84 L 07/09/20 08:15 07/08/20 07/09/20 07/09/20 22:59 06:59 14:59 Intake Total 600 / 1180 120 / 1300 100 / 100 Output Total 550 / 1700 600 / 2300 Balance 50 / -520 -480 / -1000 100 / 100 Weight last 48 hrs Weight 116.619 kg Weight 116.29 kg Physical Exam Const: COMMON NORMALS: patient oriented x3 Resp: OTHER: Bibasilar Rales. Not in distress. Cardio: COMMON NORMALS: regular rate, regular rhythm and S2 normal heart sound present RATE: regular rate RHYTHM: regular rhythm HEART SOUNDS: S2 normal heart sound present OTHER: No lower extremity edema GI: COMMON NORMALS: Normal to inspection, nondistended, normoactive bowel sounds present, Soft to palpation and non-tender PALPATION: Yes Soft to palpation Neuro: COMMON NORMALS: patient oriented x3 and no focal motor deficits Urinary Catheter Management^: Aburto Latex Free: Cath Placed During This Visit: yes Reason for Continuing Indwelling Catheter: Accurate Measurement of Urinary Output in Critically Ill Patients Urinary Catheter Date of Insertion: 06/18/20 Urinary Catheter Time of Insertion: 10:20 Data : 07/09/20 03:15 07/09/20 03:15 A&P Assessment and plan (1) Acute respiratory failure with hypoxia: She said a while and year today. Still has very limited reserve. 5 to requirement state 90-95% through the day. In the evening we will bit better 85%. We have discontinued antibiotics. She does have a white count coming up somewhat today to 22,000. Afebrile. Denies any other changes in her condition. We will repeat chest x-ray in the morning to reassess. Low threshold to restart antibiotics. Continue Decadron as per discussion with pulmonology. Continue to attempt to wean down oxygen. If doing a little bit better consideration may be given to Oxipendant. Per discussion for now tracheostomy benefits are considered limited per discussion with pulmonary. Continue Lasix daily. Monitor renal function, volume status. Discussed with her daughter. CRP and D-dimer appear to be further decreasing. Recheck. She is trying a little bit of bed level work with flexing her arms. Limited reserve. -CTA chest: 1. No evidence for pulmonary embolus. 2. Multilobar peripheral ground-glass opacities, typical of COVID-19 pneumonia. This pattern can also be seen with influenza pneumonia and organizing pneumonia -cardiac echo shows: LV systolic function is grossly normal. Regional wall motion abnormalities can not be assessed because of poor visualization Grade 1 diastolic dysfunction Completed remdesivir. Completed convalescent plasma. Status: Acute (2) Pneumonia due to COVID-19 virus: Severe/life-threatening COVID-19 pneumonia as above. Status: Acute (3) Secondary bacterial pneumonia: Discontinue antibiotics. Monitor. Status: Acute (4) Atrial fibrillation with RVR: Heart rates have been good. Continue Cardizem. As needed metoprolol pushes. Lovenox. Status: Acute (5) Diarrhea: Resolved. Stool studies negative. Status: Acute Additional A&P Information Hyperkalemia: Improved. Lasix. Low potassium diet. Dysphagia: with dry mouth, candidiasis. Appreciate ST recommendations. Oropharyngeal candidiasis: nystatin swish and swallow, for now continue Diflucan with persistent candidiasis. Transaminitis: Improving. Continue to monitor liver numbers daily. Continue attempts to wean down oxygen support, wean off BiPAP dependence, optimization of volume status, monitoring off antibiotics, assessment of dysphagia, continue attempts for mobilization. PLAN: Continue current monitoring and treatment with remdesivir and dexamethasone. Continue Lasix and therapeutic anticoagulation for now. Will discuss with Dr. Mae once he is out of OR and if patient agrees we will proceed with tracheostomy placement. Attestations Medical Necessity Statement*: Patient with significant hypoxic respiratory failure requires close ICU monitoring and treatment. 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
[2020-07-09] MEDS: morphine 4 mg/mL SDV 1 mL 1 MG IVP (13:12)
--- NOTE | 2020-07-09 14:32 | PC.OT ---
OT tx attempted. Nursing requests therapy to be withheld at this time as pt has been medicated for pain and needs to rest. Will attempt again tomorrow.
[2020-07-09] MEDS: LORazepam 2 mg/mL INJ 1 mL 1 MG IVP ×4 (18:10→19:34)
[2020-07-09] MEDS: morphine 4 mg/mL SDV 1 mL 2 MG IVP ×4 (18:11→19:34)
--- NOTE | 2020-07-09 19:15 | PC.NURSE ---
Per family's request, they asked if pt's oxygen can be removed and stopped. This RN turned off [facility]. Pt on RA at this time. Will continue to medicate and monitor the pt.
[2020-07-09] MEDS: HYDROmorphone 1 mg/mL INJ 1 mL 2 MG IVP (19:17)
--- NOTE | 2020-07-09 20:08 | PC.NURSE ---
Addendum entered by Gabby Garcia RN 07/09/20 20:41: Absent heart sounds verified. Original Note: 1943 - Patient's computer typesetter keyliner read asystole, upon auscultation of the heart, for 1 minute, absent heart sounds were recognized via this nurse. Verification of absent heart sounds were performed via Eber Garcia RN. Notified, MTS Notified, Supply Assistant notified
--- NOTE | 2020-07-09 20:09 | PM.EVENT ---
Event Note Event Note: Patient at 1943, note to be done by Dr. Kinsey
--- NOTE | 2020-07-09 21:40 | PC.NURSE ---
Patient transferred via [facility] and discharged from facility
--- NOTE | 2020-07-12 07:53 | P.DES_ITS ---
Discharge Providers DDS Date of Admission: 06/16/20 16:35 Date Summary Completed: 07/12/20 Attending Provider at Admission: Miko Sapp MD Time of : 19:44 Attending Provider at Discharge: Pierce Kinsey MD Primary Care Provider: NAVEEN Fisher DS Diagnoses Hospital Diagnoses (1) Acute respiratory failure with hypoxia: (2) Pneumonia due to COVID-19 virus: (3) Secondary bacterial pneumonia: (4) Atrial fibrillation with RVR: (5) Diarrhea: (6) Acute respiratory distress syndrome (ARDS) due to 2019 novel coronavirus: (7) Pulmonary fibrosis, postinflammatory: Reason for Visit Reason for Visit: sob, weakness Summary Date and Time of Date of : 07/09/20 Time of : 19:44 Summary Summary: Patient presented with shortness of breath and diagnosed with COVID-19 pneumo parveen. She had prolonged hospitalization course and unfortunately did not improve and developed ARDS with postinflammatory pulmonary fibrosis. She required large amount of oxygen and we could not bring it down less than 80% FiO2. I had discussion with patient and family to consider tracheostomy but the patient opted to allow natural as her quality of life will be significantly affected. Family supported patient decision. Patient was kept comfortable and peacefully with her family at bedside. No autopsy was requested. Additional Data Family: at bedside Autopsy requested?: No Advance directives?: No Hospice patient?: No Discharge Plan Discharge Patient Disposition: Condition: Stable DS Attestations Time Spent in /Discharge Care*: greater than 30 min Quality - AMI: AMI present?: No Quality - Stroke: CVA present?: No Quality - VTE: VTE present?: No Coding Level of Care Code Acute Oracle Adf Developer for [facility] Diagnoses Acute respiratory failure with hypoxia J96.01 Pneumonia due to COVID-19 virus U07.1; J12.89 Secondary bacterial pneumonia J15.9 Atrial fibrillation with RVR I48.91 Diarrhea R19.7 Acute respiratory distress syndrome (ARDS) due to 2019 novel coronavirus U07.1; J80 Pulmonary fibrosis, postinflammatory J84.10
== END 2020-07-09 19:44 | disposition expired | DRG 177 ==
LOC: ER 17:18 → MEDSURG 17:28 → ICU 06-18 01:17
PROVIDERS: Internal Medicine; Student in an Organized Health Care Education/Training Program; Admitting Provider Family Medicine; Emergency Provider Emergency Medicine; PCP Nurse Practitioner Family; Visit Provider Internal Medicine
DX: U07.1 COVID-19 (principal); J96.01 Acute respiratory failure with hypoxia; J12.89 Other viral pneumonia; J15.9 Unspecified bacterial pneumonia; B37.0 Candidal stomatitis; R19.7 Diarrhea, unspecified; I48.91 Unspecified atrial fibrillation; J84.10 Pulmonary fibrosis, unspecified; Z66 Do not resuscitate; R13.10 Dysphagia, unspecified; Z87.891 Personal history of nicotine dependence
CPT/HCPCS: 12345; 36415; 36430; 36592; 36600; 51702; 71045; 71275; 80051; 80053; 80202; 82274; 82330; 82550; 82728; 82803; 82805; 83605; 83615; 83630; 83735; 83880; 84100; 84132; 84145; 84443; 84484; 85025; 85378; 85384; 85610; 86140; 86403; 86900; 86927; 87040; 87426; 87449; 87493; 87506; 87635; 87641; 87804; 92526; 92610; 93005; 93306; 93308; 94640; 94660; 94669; 96372; 96375; 97110; 97161; 97166; 97530; 97535; 99282; J0282; J0456; J0696; J0743; J1100; J1170; J1650; J1885; J1940; J2060; J2270; J2543; J3370; J3480; J3490; J3535; J7050; J7060; J7626; P9017; Q9967